=== PATIENT | female | born 1955 | race Caucasian/White ===

== ENCOUNTER → 2017-09-04 14:29 | Outpatient (CLI) | payer MEDICARE, MEDICAID, SELFPAY ==
--- NOTE | 2017-09-04 14:34 | XR_ITS ---
XR DEXA axial skeleton HISTORY: ITS.REASON: POST MENOPAUSAL ORDERING PHYSICIAN: Elvira Carpenter PATIENT AGE: 61 years COMPARISON: None FINDINGS: The BMD measured at the Right femoral neck is 0.683 g/cm squared with a T score of -2.6. This is considered osteoporotic according to the World Health Organization criteria. Fracture risk is high. Treatment should be initiated if not already started. Follow-up exam recommended in one year to assess treatment response. IMPRESSION: Osteoporosis with high fracture risk
== END ==
PROVIDERS: Family Provider Internal Medicine Adolescent Medicine; PCP Internal Medicine Adolescent Medicine; Visit Provider Nurse Practitioner Family
DX: Z78.0 Asymptomatic menopausal state (principal)
CPT/HCPCS: 77080

== ENCOUNTER → 2017-11-11 15:09 | Outpatient (POV) | payer MEDICARE, MEDICAID, SELFPAY ==
[2017-11-11 15:23] VITALS: BP 139/86; PULSE 62; RESP 24; TEMP 37.2; O2SAT 97
--- NOTE | 2017-11-11 15:58 | HMH.PAINSOAP ---
[facility] Pain Management SOAP Note Subjective:: Patient is a pleasant 62-year-old white female who presents today for a follow-up after a lumbar epidural steroid injection she had back in July. Patient states she did have relief with this injection lasting several weeks. Patient states she was much more functional after the interim. Patient's all currently being medically me on tramadol milligrams 1 p.o. 3 times daily and gabapentin 300 mg 1 p.o. 3 times daily. Patient states the medication helps her 60-70%. Patient states that she would like something to last a little bit longer. Patient's LAVONNE #[id number] reviewed and appropriate. We will increase her tramadol 50 mg to 4 times daily and keep her gabapentin at 300 mg 1 tab p.o. 3 times daily. Patient denies any side effect. Patient rates her pain a 6 out of 10 today. She describes it as achy and dull and constant. ROS General: no recent weight change, no fever, no sleep disturbances Respiratory: no cough, no shortness of air, no recurring pulmonary infections Cardiovascular/Peripheral Vascular: No chest pain, No palpitations, no edema, no shortness of breath. Gastrointestinal: no incontinence, normal bowel movements reported Genitourinary: no incontinence Musculoskeletal: Back pain, bilateral leg pain at times Psychiatric: normal mood/ affect, [denies depression], [denies anxiety] Neurological: Weakness in bilateral lower extremities, [denies balance issues] Objective:: Physical Exam General: Alert and oriented x3, no acute distress, pleasant and cooperative, [on room air] Lungs: Resps E/U, Symmetrical chest expansion, Eyes: PERRL Musculoskeletal: Flexion and extension of lumbar spine somewhat guarded secondary to pain, deep tendon reflexes normal, strength in upper and lower extremities [5/5], [abnormal gait noted], positive straight leg test bilaterally at 30? 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 Patient has done well with these in the past given its efficacy we will order a new one. Patient's tried and failed anti-inflammatories, medications, physical therapy. We will also refill her medication tramadol 50 mg 1 p.o. 4 times daily and gabapentin 300 mg [address] Chaney has reviewed this chart and agrees with this plan of care. Patient's LAVONNE #[id number] reviewed and appropriate. Follow-up with this patient after her injection. This note was dictated using voice recognition software and may contain errors or omissions
--- NOTE | 2017-11-11 16:02 | P.CONS_ITS ---
[facility] Pain Management SOAP Note Subjective:: Patient is a pleasant 62-year-old white female who presents today for a follow- up after a lumbar epidural steroid injection she had back in July. Patient states she did have relief with this injection lasting several weeks. Patient states she was much more functional after the interim. Patient's all currently being medically me on tramadol milligrams 1 p.o. 3 times daily and gabapentin 300 mg 1 p.o. 3 times daily. Patient states the medication helps her 60-70%. Patient states that she would like something to last a little bit longer. Patient's LAVONNE #[id number] reviewed and appropriate. We will increase her tramadol 50 mg to 4 times daily and keep her gabapentin at 300 mg 1 tab p.o. 3 times daily. Patient denies any side effect. Patient rates her pain a 6 out of 10 today. She describes it as achy and dull and constant. ROS General: no recent weight change, no fever, no sleep disturbances Respiratory: no cough, no shortness of air, no recurring pulmonary infections Cardiovascular/Peripheral Vascular: No chest pain, No palpitations, no edema, no shortness of breath. Gastrointestinal: no incontinence, normal bowel movements reported Genitourinary: no incontinence Musculoskeletal: Back pain, bilateral leg pain at times Psychiatric: normal mood/ affect, [denies depression], [denies anxiety] Neurological: Weakness in bilateral lower extremities, [denies balance issues] Objective:: Physical Exam General: Alert and oriented x3, no acute distress, pleasant and cooperative, [ on room air] Lungs: Resps E/U, Symmetrical chest expansion, Eyes: PERRL Musculoskeletal: Flexion and extension of lumbar spine somewhat guarded secondary to pain, deep tendon reflexes normal, strength in upper and lower extremities [5/5], [abnormal gait noted], positive straight leg test bilaterally at 30? 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 Patient has done well with these in the past given its efficacy we will order a new one. Patient's tried and failed anti-inflammatories, medications, physical therapy. We will also refill her medication tramadol 50 mg 1 p.o. 4 times daily and gabapentin 300 mg [address] Chaney has reviewed this chart and agrees with this plan of care. Patient's LAVONNE #[id number] reviewed and appropriate. Follow-up with this patient after her injection. This note was dictated using voice recognition software and may contain errors or omissions
--- NOTE | 2017-11-12 15:06 | PC.PHONENOTE ---
called in Rx for Tramadol 50mg TID with 2 refills and Gabapentin 300mg TID with 2 refills to pt's pharmacy
== END ==
PROVIDERS: Family Provider Internal Medicine Adolescent Medicine; PCP Internal Medicine Adolescent Medicine; Visit Provider Clinical Nurse Specialist Family Health
DX: M54.16 Radiculopathy, lumbar region (principal)
CPT/HCPCS: 99212

== ENCOUNTER 2017-11-22 13:33 | Day surgery (SDC) | payer MEDICARE, MEDICAID, SELFPAY ==
--- NOTE | 2017-11-22 13:43 | HMH.PMPROC ---
- Procedure Date: 11/22/17 Time: 13:44 Anesthesiologist:: Louis Chaney MD Complications:: None Pre-procedure Diagnosis:: Degenerative disc disease of lumbar spine with lumbar radiculopathy symptoms Post-procedure Diagnosis:: Same Indications for Procedure:: This patient is a pleasant 62-year-old white female who we are treating for low back pain with lumbar radicular symptoms. She was much more functional and had decreased pain after her last epidural steroid injection back in July. She was 70-80% better. Her pain is starting to return. She presents for repeat lumbar epidural steroid injection today. Procedure Details:: Lumbar epidural steroid injection under fluoroscopy Informed consent was obtained and the risk and benefits of the procedure was explained to the patient. The patient was taken to the procedure room. The patient was placed prone on the procedure table. The patient was prepped and draped in sterile fashion. C-arm fluoroscopy was used to view the lumbar spine. Skin and subcutaneous tissues were anesthetized using lidocaine. I placed an 18-gauge epidural needle and advanced into the L4-L5 interspace using fluoroscopic guidance and [id number] to air. After confirmation of needle placement in the epidural space with dye I injected 2 mL of lidocaine 1.5% with Depo-Medrol 80 mg. Patient tolerated the procedure well with no complications. Plan and Disposition:: We will follow-up with her in 2 weeks. We will reevaluate her symptoms at that time. We will plan on scheduling a repeat epidural at that time.
[2017-11-22 13:45] VITALS: BP 150/89; PULSE 104; RESP 24; TEMP 36.8; O2SAT 90; BMI 28.3
--- NOTE | 2017-11-22 13:49 | P.PCN_ITS ---
- Procedure Date: 11/22/17 Time: 13:44 Anesthesiologist:: Louis Chaney MD Complications:: None Pre-procedure Diagnosis:: Degenerative disc disease of lumbar spine with lumbar radiculopathy symptoms Post-procedure Diagnosis:: Same Indications for Procedure:: This patient is a pleasant 62-year-old white female who we are treating for low back pain with lumbar radicular symptoms. She was much more functional and had decreased pain after her last epidural steroid injection back in July. She was 70-80% better. Her pain is starting to return. She presents for repeat lumbar epidural steroid injection today. Procedure Details:: Lumbar epidural steroid injection under fluoroscopy Informed consent was obtained and the risk and benefits of the procedure was explained to the patient. The patient was taken to the procedure room. The patient was placed prone on the procedure table. The patient was prepped and draped in sterile fashion. C-arm fluoroscopy was used to view the lumbar spine. Skin and subcutaneous tissues were anesthetized using lidocaine. I placed an 18-gauge epidural needle and advanced into the L4-L5 interspace using fluoroscopic guidance and [id number] to air. After confirmation of needle placement in the epidural space with dye I injected 2 mL of lidocaine 1.5 % with Depo-Medrol 80 mg. Patient tolerated the procedure well with no complications. Plan and Disposition:: We will follow-up with her in 2 weeks. We will reevaluate her symptoms at that time. We will plan on scheduling a repeat epidural at that time.
[2017-11-22 13:52] VITALS: BP 175/99; BP 178/102; PULSE 110; PULSE 112; RESP 20
[2017-11-22 14:02] VITALS: BP 144/93; PULSE 107; RESP 18; O2SAT 91
== END 2017-11-22 13:58 | disposition home or self-care (01) ==
LOC: SC.PAINP 13:35
PROVIDERS: Family Provider Internal Medicine Adolescent Medicine; PCP Internal Medicine Adolescent Medicine; Visit Provider Anesthesiology
DX: M51.16 Intervertebral disc disorders with radiculopathy, lumbar region (principal)
CPT/HCPCS: 62323; J1040

== ENCOUNTER → 2017-12-16 13:48 | Outpatient (POV) | payer MEDICARE, MEDICAID, SELFPAY ==
[2017-12-16 14:02] VITALS: BP 120/81; PULSE 108; RESP 18; TEMP 36.7; O2SAT 99; BMI 18.5
--- NOTE | 2017-12-16 14:09 | HMH.PAINSOAP ---
[facility] Pain Management SOAP Note Subjective:: This patient is a pleasant 62-year-old white female who we are treating for low back pain with lumbar radicular symptoms. She was doing well for a period of time after last lumbar epidural steroid injection. Now she has some increasing pain in addition to some radicular symptoms including twitching down her legs. She is currently on gabapentin 300 mg 3 times a day. I have recommended that we increase this to 300 mg 5 times a day. She is also on tramadol 50 mg 4 times a day. She is to remain on this medicine. Most of her pain is in her back and down her legs. Objective:: Alert and oriented ?3 no acute distress. Patient is seen in a wheelchair. She needs assistance while walking. Motor strength of the lower extremities is 4 out of 5. There is no gross sensory deficit. Assessment:: Degenerative disc disease of lumbar spine with lumbar radiculopathy symptoms. Plan:: We will plan on increasing her gabapentin to 300 mg 5 times a day. Will hold off on a repeat lumbar epidural steroid injection at this time. Will follow up with her in 1 month. We will reevaluate her symptoms at that time. She is also continue her tramadol 50 mg 4 times a day.
== END ==
PROVIDERS: Family Provider Internal Medicine Adolescent Medicine; PCP Internal Medicine Adolescent Medicine; Visit Provider Anesthesiology
DX: M54.16 Radiculopathy, lumbar region (principal)
CPT/HCPCS: 99212

== ENCOUNTER 2017-12-30 15:23 | Inpatient (IN) ==
[2017-12-30 16:51] LABS: Basophils # 0.1 K/mm3 (0-0.2); Basophils % 0.4 % (0.1-2.0); Eosinophils # 0.1 K/mm3 (0.0-0.4); Eosinophils % 0.8 % (0.1-12.0); Hematocrit 40.7 % (37.0-47.0); Hemoglobin 13.2 g/dL (12.2-16.2); Lymphocytes % 11.6 K/mm3 (10-50); Mean Corpuscular HGB Conc 32.5 g/dL (31.8-35.4); Mean Corpuscular Hemoglobin 29.2 pg (27.0-31.2); Mean Corpuscular Volume 89.7 fl (81-99); Mean Platelet Volume 8.5 fl (7.4-10.4); Monocytes # 1.2 K/mm3 (0.1-1.0); Monocytes % 7.1 % (1.7-9.3); Neutrophils # 13.7 K/mm3 (1.8-7.8); Neutrophils % 80.1 % (37.0-80.0); Platelet Count 335 K/mm3 (142-424); Red Blood Count 4.53 M/mm3 (4.20-5.40); Red Cell Distribution Width 14.2 % (11.5-17.5); White Blood Count 17.1 K/mm3 (4.8-10.8)
[2017-12-30 17:24] LABS: Anion Gap 12.9 mEq/L (5-15); Potassium 3.9 mmoL/L (3.5-5.1)
--- NOTE | 2017-12-30 17:49 | History & Physical Report ---
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 In the office she had a fever, tachycardic and crackles in the right lower lung field. Admitted to hospital for antibiotics and Pseudomonas coverage given her end- stage disease and multiple antibiotic therapies. [facility] History Medical History: Reports:: Hyperlipidemia, Hypertension Denies:: Cancer, Diabetes Mellitus Type 1, Diabetes Mellitus Type 2, MRSA Other Medical History: Reports: Arthritis, Hypothyroidism Amputation: No - *Social History Educational Level: Completed High School Smoking Status: Former smoker Alcohol Intake: never Occupational Status: retired Housing: house Household Members: family - Psychiatric History Expresses thoughts of harming self/others: None Suicide Plan Description: No Plan Review of Systems - Review of Systems Review of systems:: pertinent systems reviewed and negative unless documented below Meds Home Medications Medication Instructions Recorded Confirmed Type Fluticasone/Salmeterol [Advair 1 inhalation IH BID 11/22/17 12/28/17 History 100/50mcg diskus] Gabapentin [Gabapentin 300mg Cap] 300 mg PO DIRECTED 11/22/17 12/28/17 History Montelukast Sodium [Singulair 10mg 10 mg PO PM 11/22/17 12/28/17 History tablet] Pantoprazole Sodium [Protonix 40mg 40 mg PO DAILY 11/22/17 12/28/17 History tablet] Sertraline HCl [Zoloft] 50 mg PO DAILY 11/22/17 12/28/17 History Tizanidine HCl [Zanaflex] 4 mg PO DIRECTED 11/22/17 12/28/17 History Tramadol HCl [Ultram Take Home 50 mg PO DIRECTED 11/22/17 12/28/17 History Pack 50mg (10)] Allergies Allergy/AdvReac Type Severity Reaction Status Date / Time morphine Allergy Severe CHEST PAIN Verified 12/28/17 18:28 iodine Allergy Unknown I-HIVES Verified 12/28/17 18:28 Penicillins Allergy Unknown I-HIVES Verified 12/28/17 18:28 Exam Vital signs and Labs for Last 24 Hours: Temp Pulse Resp BP Pulse Ox 98.4 F 109 H 22 116/71 96 12/30/17 15:56 12/30/17 17:13 12/30/17 15:56 12/30/17 15:56 12/30/17 17:13 Laboratory Results - last 24 hr 12/30/17 16:21: WBC 17.1 H, RBC 4.53, Hgb 13.2, Hct 40.7, MCV 89.7, MCH 29.2, MCHC 32.5, RDW 14.2, Plt Count 335, MPV 8.5, Neut % (Auto) 80.1 H, Lymph % (Auto ) 11.6, Greenlee % (Auto) 7.1, Eos % (Auto) 0.8, Baso % (Auto) 0.4, Neut # (Auto) 13.7 H, Lymph # (Auto) 2.0, Greenlee # (Auto) 1.2 H, Eos # (Auto) 0.1, Baso # (Auto ) 0.1 I & O for Last 24 hours: Intake & Output 12/28/17 12/29/17 12/30/17 12/31/17 11:59 11:59 11:59 11:59 Weight 149 lb 4 oz Narrative: Patient and her power mobility device. Withered and deformed feet as previously noted. Diminished pulses in the feet but the wrists are normal. Crackles and rhonchi in the right lower and middle lung field. Left side has better air entry. Heart rate regular. Abdomen soft and nontender. Oropharynx clear. Cranial nerves are intact. H&P: Result - Labs Labs: Short CBC 12/30/17 Range/Units 16:21 WBC 17.1 H (4.8-10.8) K/mm3 Hgb 13.2 (12.2-16.2) g/dL Hct 40.7 (37.0-47.0) % Plt Count 335 (142-424) K/mm3 Assessment and Plan (1) Community acquired pneumonia Current visit: Yes Status: Acute Category: Medical Code(s): J18.9 - Pneumonia, unspecified organism (2) Acute exacerbation of chronic obstructive pulmonary disease (COPD) Current visit: No Status: Acute Category: Medical Code(s): J44.1 - Chronic obstructive pulmonary disease with (acute) exacerbation - Assessment and plan all Dx Assessment and Plan for all problems:: Admit to hospital. Broad-spectrum IV antibiotics. Sputum cultures, port of care. Close follow-up.
[2017-12-30 19:20] LABS: Eosinophils % 1 % (0-3); Lymphocytes % 10 % (10-50); Monocytes % 5 % (2-9); Neutrophils % 84 % (42-76); RBC Morphology Normal; Total Cells Counted 100
[2017-12-31 06:58] LABS: Basophils # 0.1 K/mm3 (0-0.2); Basophils % 0.4 % (0.1-2.0); Eosinophils # 0.2 K/mm3 (0.0-0.4); Eosinophils % 1.6 % (0.1-12.0); Hematocrit 39.5 % (37.0-47.0); Hemoglobin 12.5 g/dL (12.2-16.2); Lymphocytes # 2.2 K/mm3 (0.7-4.5); Lymphocytes % 18.1 K/mm3 (10-50); Mean Corpuscular HGB Conc 31.7 g/dL (31.8-35.4); Mean Corpuscular Hemoglobin 28.8 pg (27.0-31.2); Mean Corpuscular Volume 90.9 fl (81-99); Mean Platelet Volume 7.2 fl (7.4-10.4); Monocytes # 0.9 K/mm3 (0.1-1.0); Monocytes % 7.4 % (1.7-9.3); Neutrophils % 72.6 % (37.0-80.0); Platelet Count 380 K/mm3 (142-424); Red Blood Count 4.34 M/mm3 (4.20-5.40); Red Cell Distribution Width 14.4 % (11.5-17.5); White Blood Count 12.4 K/mm3 (4.8-10.8)
[2017-12-31 07:25] LABS: Anion Gap 9.9 mEq/L (5-15); Potassium 3.9 mmoL/L (3.5-5.1)
--- NOTE | 2017-12-31 07:41 | Pharmacy Consult Notes ---
[facility] Pharmacy VTE Monitoring - Patient Demographics Admission date: 12/30/17 Report Date: 12/31/17 Time: 07:40 Allergies/Adverse Reactions: Patient Allergies morphine Allergy (Severe, Verified 12/28/17 18:28) CHEST PAIN iodine Allergy (Unknown, Verified 12/28/17 18:28) I-HIVES Penicillins Allergy (Unknown, Verified 12/28/17 18:28) I-HIVES Height: 1.63 m Weight: 67.699 kg Patient Problems: Current Active Problems Community acquired pneumonia (Acute) - VTE Risk Labs: VTE Related Lab Results Hgb 12.5 g/dL (12.2-16.2) 12/31/17 06:13 Hct 39.5 % (37.0-47.0) 12/31/17 06:13 Plt Count 380 K/mm3 (142-424) 12/31/17 06:13 BUN 14 mg/dL (7-18) 12/31/17 06:13 Creatinine 0.62 mg/dL (0.55-1.02) 12/31/17 06:13 Estimated Creat Clear 103 mL/min (0-300) 12/31/17 06:13 VTE Score: 3 VTE Risk Level: Low Risk - Prophylaxis VTE Prophylaxis Ordered?: Yes Types of VTE Prophylaxis: TEDS Knee High Location of Applied Device: Bilateral Lower Extremeties - VTE Diagnosis Confirmed Treatment or plan recommended: Continue Current Treatment
--- NOTE | 2017-12-31 08:11 | Progress Note ---
Internal Medicine - PN: Subj *Date: 12/31/17 *Time: 07:45 Interval history: Patient continues to have shortness of breath at rest. She has had minimal sputum production, but was able to produce a specimen for culture. Alert and oriented x3. Rate and rhythm regular. Lung sounds with musical wheezes throughout and rhonchi DEONDRE. Abdomen soft with mild diffuse tenderness Exam Vital signs and Labs for Last 24 Hours: Temp Pulse Resp BP Pulse Ox 98.7 F 84 20 112/63 97 12/31/17 07:16 12/31/17 07:16 12/31/17 07:16 12/31/17 07:16 12/31/17 07:16 Laboratory Results - last 24 hr 12/30/17 16:21: WBC 17.1 H, RBC 4.53, Hgb 13.2, Hct 40.7, MCV 89.7, MCH 29.2, MCHC 32.5, RDW 14.2, Plt Count 335, MPV 8.5, Neut % (Auto) 80.1 H, Lymph % (Auto ) 11.6, Otoe % (Auto) 7.1, Eos % (Auto) 0.8, Baso % (Auto) 0.4, Neut # (Auto) 13.7 H, Lymph # (Auto) 2.0, Otoe # (Auto) 1.2 H, Eos # (Auto) 0.1, Baso # (Auto ) 0.1, Total Counted 100, Neutrophils % (Manual) 84 H, Lymphocytes % (Manual) 10 , Monocytes % (Manual) 5, Eosinophils % (Manual) 1, Platelet Estimate Normal, RBC Morphology Normal 12/30/17 16:21: Sodium 134 L, Potassium 3.9, Chloride 97 L, Carbon Dioxide 28, Anion Gap 12.9, BUN 18 D, Creatinine 0.77, Estimated Creat Clear 83, Estimated GFR 76, Est GFR ( Amer) 93, Glucose 91 12/30/17 16:21: Mycoplasma pneumon IgM Non-reactive 12/31/17 06:13: WBC 12.4 H D, RBC 4.34, Hgb 12.5, Hct 39.5, MCV 90.9, MCH 28.8, MCHC 31.7 L, RDW 14.4, Plt Count 380, MPV 7.2 L, Neut % (Auto) 72.6, Lymph % ( Auto) 18.1, Otoe % (Auto) 7.4, Eos % (Auto) 1.6, Baso % (Auto) 0.4, Neut # (Auto ) 9.0 H, Lymph # (Auto) 2.2, Otoe # (Auto) 0.9, Eos # (Auto) 0.2, Baso # (Auto) 0.1 12/31/17 06:13: Sodium 138, Potassium 3.9, Chloride 102, Carbon Dioxide 30, Anion Gap 9.9, BUN 14, Creatinine 0.62, Estimated Creat Clear 103, Estimated GFR 98, Est GFR ( Amer) 119 D, Glucose 87 I & O for Last 24 hours: Intake & Output 12/28/17 12/29/17 12/30/17 12/31/17 11:59 11:59 11:59 11:59 Intake Total 760 / 760 Balance 760 / 760 Weight 149 lb 4 oz Microbiology Reports for the Last 24 Hours: Microbiology 12/30/17 19:15 Sputum - Expectorated Sputum Gram Stain - Final Assessment and Plan (1) Community acquired pneumonia Current visit: Yes Status: Acute Category: Medical Code(s): J18.9 - Pneumonia, unspecified organism (2) Acute exacerbation of chronic obstructive pulmonary disease (COPD) Current visit: No Status: Acute Category: Medical Code(s): J44.1 - Chronic obstructive pulmonary disease with (acute) exacerbation - Assessment and plan all Dx Assessment and Plan for all problems:: Continue broad spectrum antibiotics and duonebs. Leukocytosis is improving. Sputum culture is pending.
--- NOTE | 2018-01-01 08:04 | Progress Note ---
Internal Medicine - PN: Subj *Date: 01/01/18 *Time: 08:03 Interval history: Patient is a complaint of rattling in her chest but otherwise has been comfortable. Exam Vital signs and Labs for Last 24 Hours: Temp Pulse Resp BP Pulse Ox 99.7 F H 113 H 20 129/76 93 L 01/01/18 07:15 01/01/18 07:15 01/01/18 07:15 01/01/18 07:15 01/01/18 07:15 I & O for Last 24 hours: Intake & Output 12/29/17 12/30/17 12/31/17 01/01/18 11:59 11:59 11:59 11:59 Intake Total 910 / 910 2058 / 2058 Output Total 1300 / 1300 Balance 910 / 910 758 / 758 Weight 149 lb 4 oz Microbiology Reports for the Last 24 Hours: Microbiology 12/30/17 19:15 Sputum - Expectorated Sputum Gram Stain - Final 12/30/17 19:15 Sputum - Expectorated Sputum Sputum Culture - Final Pseudomonas aeruginosa 12/30/17 17:00 Blood Blood Culture - Preliminary NO GROWTH AFTER 24 HOURS 12/30/17 16:21 Blood Blood Culture - Preliminary NO GROWTH AFTER 24 HOURS Narrative: Patient is pleasant, alert, oriented 3. Does have rhonchi in both lower lung montiel. Occasional crackles in the left lower side. Heart rate regular. Assessment and Plan (1) Community acquired pneumonia Current visit: Yes Status: Acute Category: Medical Code(s): J18.9 - Pneumonia, unspecified organism (2) Acute exacerbation of chronic obstructive pulmonary disease (COPD) Current visit: No Status: Acute Category: Medical Code(s): J44.1 - Chronic obstructive pulmonary disease with (acute) exacerbation (3) Pseudomonas pneumonia Current visit: Yes Status: Acute Category: Medical Code(s): J15.1 - Pneumonia due to Pseudomonas Patient is on appropriate antibiotics. Blood cultures are negative so far. Continue current plan. Mucomyst for sputum clearance help.
--- NOTE | 2018-01-02 07:46 | Progress Note ---
Internal Medicine - PN: Subj *Date: 01/02/18 *Time: 07:45 Exam Vital signs and Labs for Last 24 Hours: Temp Pulse Resp BP Pulse Ox 98.4 F 88 18 121/76 95 01/02/18 04:00 01/02/18 06:29 01/02/18 04:00 01/02/18 04:00 01/02/18 06:29 I & O for Last 24 hours: Intake & Output 12/30/17 12/31/17 01/01/18 01/02/18 23:59 23:59 23:59 23:59 Intake Total 150 / 150 2848 / 2848 2292 / 2292 1283 / 1283 Output Total 500 / 500 1600 / 1600 600 / 600 Balance 150 / 150 2348 / 2348 692 / 692 683 / 683 Weight 67.699 kg 67.699 kg Microbiology Reports for the Last 24 Hours: Microbiology 12/30/17 17:00 Blood Blood Culture - Preliminary NO GROWTH AFTER 48 HOURS 12/30/17 16:21 Blood Blood Culture - Preliminary NO GROWTH AFTER 48 HOURS 12/30/17 19:15 Sputum - Expectorated Sputum Gram Stain - Final 12/30/17 19:15 Sputum - Expectorated Sputum Sputum Culture - Final Pseudomonas aeruginosa Assessment and Plan (1) Community acquired pneumonia Current visit: Yes Status: Acute Category: Medical Code(s): J18.9 - Pneumonia, unspecified organism (2) Acute exacerbation of chronic obstructive pulmonary disease (COPD) Current visit: No Status: Acute Category: Medical Code(s): J44.1 - Chronic obstructive pulmonary disease with (acute) exacerbation (3) Pseudomonas pneumonia Current visit: Yes Status: Acute Category: Medical Code(s): J15.1 - Pneumonia due to Pseudomonas The patient's infection will respond to the chosen ABx?: Yes Is the patient receiving the right drug, dose, and route?: Yes Could a more targeted ABx be ordered?: No
--- NOTE | 2018-01-02 08:09 | Swing Bed Reports ---
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 In the office she had a fever, tachycardic and crackles in the right lower lung field. Admitted to hospital for antibiotics and Pseudomonas coverage given her end- stage disease and multiple antibiotic therapies. Hospital Course Hospital Course: Ms. De Leon was admitted to acute care for failure of outpatient treatment of COPD exacerbation/pneumonia. CXR was obtained which showed DEONDRE pneumonia. She was given broad spectrum antibiotics and duonebs. Mucomyst nebs were added which has enabled her to expectorate more sputum. A sputum culture was obtained which was + for pseudomonas that is sensitive to the cefepime and levaquin she is on. Shortness of breath is slowly improving. A PICC line will be placed for continued IV therapy and he will transfer to swing bed today for 8 more days of IV Levaquin and Cefepime as dual antibiotic coverage is indicated. Exam Vital signs and Labs for Last 24 Hours: Temp Pulse Resp BP Pulse Ox 98.4 F 88 18 121/76 95 01/02/18 04:00 01/02/18 06:29 01/02/18 04:00 01/02/18 04:00 01/02/18 06:29 I & O for Last 24 hours: Intake & Output 12/30/17 12/31/17 01/01/18 01/02/18 11:59 11:59 11:59 11:59 Intake Total 910 / 910 2208 / 2208 3455 / 3455 Output Total 1300 / 1300 1400 / 1400 Balance 910 / 910 908 / 908 5 / 2055 Weight 149 lb 4 oz Microbiology Reports for the Last 24 Hours: Microbiology 12/30/17 17:00 Blood Blood Culture - Preliminary NO GROWTH AFTER 48 HOURS 12/30/17 16:21 Blood Blood Culture - Preliminary NO GROWTH AFTER 48 HOURS 12/30/17 19:15 Sputum - Expectorated Sputum Gram Stain - Final 12/30/17 19:15 Sputum - Expectorated Sputum Sputum Culture - Final Pseudomonas aeruginosa Narrative: Alert and oriented x3. Rate and rhythm regular. Lung sounds with scattered wheezes, crackle DEONDRE, improved air movement. Abdomen soft with mild diffuse tenderness. Results Labs on day of discharge: Preliminary micro results at discharge 12/30/17 17:00 Blood Culture - Preliminary Blood NO GROWTH AFTER 48 HOURS 12/30/17 16:21 Blood Culture - Preliminary Blood NO GROWTH AFTER 48 HOURS DS: Diagnosis - Discharge Diagnosis (1) Community acquired pneumonia Status: Acute (2) Acute exacerbation of chronic obstructive pulmonary disease (COPD) Status: Acute (3) Pseudomonas pneumonia Status: Acute Discharge Medications Discharge Medications: Home Medications Medication Instructions Recorded Confirmed Type Fluticasone/Salmeterol [Advair 1 puff IH BID 11/22/17 12/31/17 History 100/50mcg diskus] Gabapentin [Gabapentin 300mg Cap] 300 mg PO 5XDAY 11/22/17 12/31/17 History Montelukast Sodium [Singulair 10mg 10 mg PO HS 11/22/17 12/31/17 History tablet] Pantoprazole Sodium [Protonix 40mg 40 mg PO DAILY 11/22/17 12/30/17 History tablet] Tizanidine HCl [Zanaflex] 4 mg PO TID 11/22/17 12/31/17 History Tramadol HCl [Ultram Take Home 50 mg PO QID 11/22/17 12/31/17 History Pack 50mg (10)] Alendronate Sodium 70 mg PO WEEKLY 12/30/17 12/30/17 History Fluticasone Furoate [Flonase 2 spray NS DAILY 12/30/17 12/31/17 History Sensimist] Linaclotide [Linzess] 145 mcg PO DAILY 12/30/17 12/30/17 History raNITIdine HCl [Ranitidine HCl] 150 mg PO BID 12/30/17 12/30/17 History Albuterol Sulfate [Albuterol HFA 2 puffs IH Q4HP PRN 12/31/17 12/31/17 History Inhaler] SUMAtriptan succinate [Sumatriptan 100 mg PO NEEDED PRN 12/31/17 12/31/17 History Succinate] Sertraline HCl [Zoloft 100mg 200 mg PO DAILY 12/31/17 12/31/17 History tablet] Trazodone HCl 50 mg PO DAILYP PRN 12/31/17 12/31/17 History Disposition Disposition: [facility] Bed
--- NOTE | 2018-01-02 08:13 | Swing Bed Reports ---
Discharge/Transfer - Discharge Disposition: [facility] Condition: Fair - Plan of Care Resident has been informed of condition and prognosis?: Yes Mobility Status: wheelchair Goal of treatment:: Improve shortness of breath and exercise tolerance Rehab Potential: Fair I concur with the most recent H & P: Yes Date of most recent H & P: 12/30/17 If no, indicate changes: None Certification: I have reviewed and agree with this resident's plan of care. I certify that post -hospital long-term facility services are required to be given on an inpatient basis because of the need for long-term care on a continuing basis for the condition(s) for which he/she is receiving inpatient hospital services prior to admission to swing bed. I also certify that the resident meets existing SNF level of care definition.
[2018-01-02 15:55] VITALS: BP 84/40
== END 2018-01-02 13:36 | disposition swing bed (61) ==
LOC: 2ND 15:23
PROVIDERS: ADMIT Internal Medicine Adolescent Medicine; ATTEND Internal Medicine Adolescent Medicine

== ENCOUNTER 2018-01-02 13:37 | Inpatient (IN) ==
--- NOTE | 2018-01-02 14:27 | Pharmacy Consult Notes ---
[facility] Pharmacy VTE Monitoring - Patient Demographics Admission date: 01/02/18 Report Date: 01/02/18 Time: 14:27 Allergies/Adverse Reactions: Patient Allergies morphine Allergy (Severe, Verified 12/28/17 18:28) CHEST PAIN iodine Allergy (Unknown, Verified 12/28/17 18:28) I-HIVES Penicillins Allergy (Unknown, Verified 12/28/17 18:28) I-HIVES Height: 1.63 m Weight: 67.699 kg - VTE Risk Was VTE Risk Assessment Performed: Yes VTE Score: 5 VTE Risk Level: Low Risk - Prophylaxis VTE Prophylaxis Ordered?: Yes Types of VTE Prophylaxis: TEDS Knee High Location of Applied Device: Bilateral Lower Extremeties - VTE Diagnosis Confirmed Treatment or plan recommended: Continue Current Treatment
--- NOTE | 2018-01-04 08:42 | Progress Note ---
Internal Medicine - PN: Subj *Date: 01/04/18 *Time: 08:41 Interval history: Overall patient feels somewhat better. Tolerating antibiotics well. Exam Vital signs and Labs for Last 24 Hours: Temp Pulse Resp BP Pulse Ox 98.1 F 93 H 20 131/70 95 01/04/18 08:00 01/04/18 08:25 01/04/18 08:00 01/04/18 08:00 01/04/18 08:25 I & O for Last 24 hours: Intake & Output 01/01/18 01/02/18 01/03/18 01/04/18 11:59 11:59 11:59 11:59 Intake Total 1007 / 1007 470 / 470 Output Total 2200 / 2200 1000 / 1000 Balance -1193 / -1193 -530 / -530 Weight 149 lb 4.012 oz 149 lb 4.012 oz Narrative: Patient is alert, oriented 3. Ate 100% of her breakfast. Heart rate regular without murmurs. Lungs continue to have rhonchi. However, slightly better air entry. No respiratory distress. Previously noted foot deformities unchanged. Assessment and Plan (1) Acute exacerbation of chronic obstructive pulmonary disease (COPD) Current visit: No Status: Acute Category: Medical Code(s): J44.1 - Chronic obstructive pulmonary disease with (acute) exacerbation (2) Community acquired pneumonia Current visit: No Status: Acute Category: Medical Code(s): J18.9 - Pneumonia, unspecified organism (3) Pseudomonas pneumonia Current visit: No Status: Acute Category: Medical Code(s): J15.1 - Pneumonia due to Pseudomonas - Assessment and plan all Dx Assessment and Plan for all problems:: Sputum clearance has improved her situation. Continue antipseudomonal antibiotics and swing bed course for this.
--- NOTE | 2018-01-05 11:40 | Progress Note ---
Internal Medicine - PN: Subj *Date: 01/05/18 *Time: 11:39 Exam Vital signs and Labs for Last 24 Hours: Temp Pulse Resp BP Pulse Ox 98.7 F 91 H 20 142/84 98 01/05/18 07:23 01/05/18 07:23 01/05/18 07:23 01/05/18 07:23 01/05/18 07:32 I & O for Last 24 hours: Intake & Output 01/02/18 01/03/18 01/04/18 01/05/18 23:59 23:59 23:59 23:59 Intake Total 390 / 390 1237 / 1237 1680 / 1680 480 / 480 Output Total 2600 / 2600 3500 / 3500 1300 / 1300 Balance 390 / 390 -1363 / -1363 -1820 / -1820 -820 / -820 Weight 67.699 kg 67.699 kg Assessment and Plan (1) Acute exacerbation of chronic obstructive pulmonary disease (COPD) Current visit: No Status: Acute Category: Medical Code(s): J44.1 - Chronic obstructive pulmonary disease with (acute) exacerbation (2) Community acquired pneumonia Current visit: No Status: Acute Category: Medical Code(s): J18.9 - Pneumonia, unspecified organism (3) Pseudomonas pneumonia Current visit: No Status: Acute Category: Medical Code(s): J15.1 - Pneumonia due to Pseudomonas The patient's infection will respond to the chosen ABx?: Yes Is the patient receiving the right drug, dose, and route?: Yes Could a more targeted ABx be ordered?: No
--- NOTE | 2018-01-07 08:33 | Progress Note ---
Internal Medicine - PN: Subj *Date: 01/07/18 *Time: 07:30 Interval history: States she feels "much better." Alert and oriented x3. Rate and rhythm regular. Lung sounds with faint wheezing anteriorly. Abdomen soft and nontender. Exam Vital signs and Labs for Last 24 Hours: Temp Pulse Resp BP Pulse Ox 98.6 F 102 H 20 131/81 94 L 01/07/18 07:23 01/07/18 07:23 01/07/18 07:23 01/07/18 07:23 01/07/18 07:23 I & O for Last 24 hours: Intake & Output 01/04/18 01/05/18 01/06/18 01/07/18 11:59 11:59 11:59 11:59 Intake Total 980 / 980 1950 / 1950 1230 / 1230 1440 / 1440 Output Total 1000 / 1000 4200 / 4200 1050 / 1050 2200 / 2200 Balance -20 / -20 -2250 / -2250 180 / 180 -760 / -760 Weight 149 lb 4.012 oz Assessment and Plan (1) Acute exacerbation of chronic obstructive pulmonary disease (COPD) Current visit: No Status: Acute Category: Medical Code(s): J44.1 - Chronic obstructive pulmonary disease with (acute) exacerbation (2) Community acquired pneumonia Current visit: No Status: Acute Category: Medical Code(s): J18.9 - Pneumonia, unspecified organism (3) Pseudomonas pneumonia Current visit: No Status: Acute Category: Medical Code(s): J15.1 - Pneumonia due to Pseudomonas - Assessment and plan all Dx Assessment and Plan for all problems:: She is doing well. Continue IV antibiotics and duonebs. On track for discharge on Saturday.
[2018-01-09 07:15] LABS: Basophils # 0.1 K/mm3 (0-0.2); Basophils % 0.6 % (0.1-2.0); Eosinophils # 0.2 K/mm3 (0.0-0.4); Eosinophils % 1.9 % (0.1-12.0); Hematocrit 37.3 % (37.0-47.0); Hemoglobin 12.1 g/dL (12.2-16.2); Lymphocytes # 2.1 K/mm3 (0.7-4.5); Lymphocytes % 22.1 K/mm3 (10-50); Mean Corpuscular HGB Conc 32.3 g/dL (31.8-35.4); Mean Corpuscular Hemoglobin 28.7 pg (27.0-31.2); Mean Corpuscular Volume 88.7 fl (81-99); Mean Platelet Volume 7.2 fl (7.4-10.4); Monocytes # 0.4 K/mm3 (0.1-1.0); Monocytes % 4.6 % (1.7-9.3); Neutrophils # 6.7 K/mm3 (1.8-7.8); Neutrophils % 70.8 % (37.0-80.0); Platelet Count 517 K/mm3 (142-424); Red Blood Count 4.21 M/mm3 (4.20-5.40); Red Cell Distribution Width 13.8 % (11.5-17.5); White Blood Count 9.4 K/mm3 (4.8-10.8)
[2018-01-09 08:06] LABS: Albumin Level 2.4 gm/dL (3.4-5.0); Albumin/Globulin Ratio 0.5 (1.1-1.8); Anion Gap 10.2 mEq/L (5-15); Bilirubin,Total 0.2 mg/dL (0.2-1.0); Calcium 9.3 mg/dL (8.5-10.1); Globulin 4.6 gm/dl (1.3-3.2); Potassium 4.2 mmoL/L (3.5-5.1)
--- NOTE | 2018-01-10 07:21 | Discharge Summary ---
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 She was treated appropriately with IV antibiotics and was transferred to [facility] for finishing IV therapy. Please see admission notes for details. Hospital Course Hospital Course: She was placed on appropriate antipseudomonal antibiotics. PICC line was placed in the right antecubital fossa. She tolerated this well, she met goals for rehab. She defervesced, she had minimal sputum production and felt much better vis--vis respiratory symptoms and lack of coughing. This morning she was doing great, back to her baseline, and was discharged home. Objective Vital signs: Temp Pulse Resp BP Pulse Ox 97.7 F 87 20 129/71 99 01/09/18 20:00 01/09/18 20:48 01/09/18 20:00 01/09/18 20:00 01/09/18 22:00 Narrative: Patient is alert, oriented. Pleasant. Heart rate regular. No murmurs. Lungs have some scattered rhonchi but at her baseline, no crackles, good air entry bilaterally, distal extremities had changes previously noted from her neuropathic diagnosis. Results Labs on day of discharge: Labs from last 24 hours 01/09/18 06:12 Sodium 139 Potassium 4.2 Chloride 104 Carbon Dioxide 29 Anion Gap 10.2 BUN 21 H Creatinine 0.73 Estimated Creat Clear 89 Estimated GFR 81 Est GFR ( Amer) 98 Glucose 86 Calcium 9.3 Total Bilirubin 0.2 AST 15 ALT 15 Alkaline Phosphatase 77 Total Protein 7.0 Albumin 2.4 L Globulin 4.6 H Albumin/Globulin Ratio 0.5 L DS: Diagnosis - Discharge Diagnosis (1) Acute exacerbation of chronic obstructive pulmonary disease (COPD) Status: Acute (2) Community acquired pneumonia Status: Acute (3) Pseudomonas pneumonia Status: Acute Discharge Plan - Patient Discharge Instructions ACTIVITY: Continue current activity DIET: continue same diet - Follow up Plan Follow up with: Neil Tony MD [Staff Physician] - 1 week Disposition: Home, Self-Long-Term Medications: Home Medications Medication Instructions Recorded Confirmed Type Fluticasone/Salmeterol [Advair 1 puff IH BID 11/22/17 01/02/18 History 100/50mcg diskus] Gabapentin [Gabapentin 300mg Cap] 300 mg PO 5XDAY 11/22/17 01/02/18 History Montelukast Sodium [Singulair 10mg 10 mg PO HS 11/22/17 01/02/18 History tablet] Pantoprazole Sodium [Protonix 40mg 40 mg PO DAILY 11/22/17 01/02/18 History tablet] Tizanidine HCl [Zanaflex] 4 mg PO TID 11/22/17 01/02/18 History Alendronate Sodium 70 mg PO WEEKLY 12/30/17 01/02/18 History Fluticasone Furoate [Flonase 2 spray NS DAILY 12/30/17 01/02/18 History Sensimist] Linaclotide [Linzess] 145 mcg PO DAILY 12/30/17 01/02/18 History raNITIdine HCl [Ranitidine HCl] 150 mg PO BID 12/30/17 01/02/18 History Albuterol Sulfate [Albuterol HFA 2 puffs IH Q4HP PRN 12/31/17 01/02/18 History Inhaler] SUMAtriptan succinate [Sumatriptan 100 mg PO NEEDED PRN 12/31/17 01/02/18 History Succinate] Sertraline HCl [Zoloft 100mg 200 mg PO DAILY 12/31/17 01/02/18 History tablet] Trazodone HCl 50 mg PO DAILYP PRN 12/31/17 01/02/18 History Tramadol HCl [Ultram] 50 mg PO QIDP PRN 01/02/18 01/02/18 History Prescriptions/Medication Reconciliation: New Hydrocortisone [Hydrocortisone 1% Cream 30gm Tube] 0 gm TP TID tube Continue Pantoprazole Sodium [Protonix 40mg tablet] 40 mg PO DAILY Montelukast Sodium [Singulair 10mg tablet] 10 mg PO HS Tizanidine HCl [Zanaflex] 4 mg PO TID Gabapentin [Gabapentin 300mg Cap] 300 mg PO 5XDAY raNITIdine HCl [Ranitidine HCl] 150 mg PO BID Linaclotide [Linzess] 145 mcg PO DAILY Alendronate Sodium 70 mg PO WEEKLY Sertraline HCl [Zoloft 100mg tablet] 200 mg PO DAILY Albuterol Sulfate [Albuterol HFA Inhaler] 2 puffs IH Q4HP PRN PRN Reason: Shortness Of Breath Or Wheezing Trazodone HCl 50 mg PO DAILYP PRN PRN Reason: Sleep Tramadol HCl [Ultram] 50 mg PO QIDP PRN PRN Reason: PAIN Fluticasone/Salmeterol [Advair 100/50mcg diskus] 1 puff IH BID Fluticasone Furoate [Flonase Sensimist] 2 spray NS DAILY SUMAtriptan succinate [Sumatriptan Succinate] 100 mg PO NEEDED PRN PRN Reason: MIGRAINES
[2018-01-10 07:33] VITALS: BP 128/80
== END 2018-01-10 11:01 | disposition home or self-care (01) ==
LOC: 2ND 13:37
PROVIDERS: ADMIT Internal Medicine Adolescent Medicine; ATTEND Internal Medicine Adolescent Medicine
CPT/HCPCS: 36415; 80053; 85025; 94640; 94761; J1956

== ENCOUNTER → 2018-02-03 13:34 | Outpatient (POV) | payer MEDICARE, MEDICAID, SELFPAY ==
[2018-02-03 13:41] VITALS: BP 124/95; PULSE 114; RESP 22; O2SAT 95; BMI 18.8
--- NOTE | 2018-02-03 14:04 | HMH.PAINSOAP ---
[facility] Pain Management SOAP Note Subjective:: Patient is a pleasant 62-year-old white female who presents today for follow-up. Patient is being treated for pain secondary to degenerative disc disease of lumbar spine with lumbar radiculopathy. Patient was increased to gabapentin 300 mg 1 p.o. 5 times a day at her last visit. She states she did have some improvement. Patient also on tramadol 50 mg 1 4 times daily. Patient states she is ready to continue on with an epidural injection. Patient has done well in the past with lumbar epidural steroid injections at the L4-L5 level. Patient would like to repeat this. Patient's tried and failed therapy, medications, anti-inflammatories. Patient recently was discharged from the hospital where she was being treated for pneumonia. Patient states she is no longer taking any antibiotics. She rates her pain an 8 out of 10 today. ROS General: no recent weight change, no fever, no sleep disturbances Respiratory: Chronic cough, O2 dependent Cardiovascular/Peripheral Vascular: No chest pain, No palpitations, no edema, no shortness of breath. Gastrointestinal: no incontinence, normal bowel movements reported Genitourinary: no incontinence Musculoskeletal: Back pain, leg pain Psychiatric: normal mood/ affect Neurological: This in bilateral lower extremities, [denies balance issues] Objective:: Physical Exam General: Alert and oriented x3, no acute distress, pleasant and cooperative, [on room air] Lungs: Resps E/U, Symmetrical chest expansion, Eyes: PERRL Musculoskeletal: Flexion and extension of lumbar spine somewhat guarded secondary to pain, deep tendon reflexes normal, strength in upper and lower extremities [5/5], [abnormal gait noted] Neurological: speech clear, website optimization strategist equal, no gross sensory deficits Assessment:: Degenerative disc disease of the lumbar spine with lumbar radiculopathy symptoms Plan:: Patient will be scheduled for an L4-L5 lumbar epidural steroid injection. Patient has done well with these in the past. Patient's failed other conservative therapies. I will follow-up with this patient after her injection. Patient is to continue her gabapentin and tramadol as prescribed. This note was dictated using voice recognition software and may contain errors or omissions
--- NOTE | 2018-02-03 14:07 | P.CONS_ITS ---
[facility] Pain Management SOAP Note Subjective:: Patient is a pleasant 62-year-old white female who presents today for follow- up. Patient is being treated for pain secondary to degenerative disc disease of lumbar spine with lumbar radiculopathy. Patient was increased to gabapentin 300 mg 1 p.o. 5 times a day at her last visit. She states she did have some improvement. Patient also on tramadol 50 mg 1 4 times daily. Patient states she is ready to continue on with an epidural injection. Patient has done well in the past with lumbar epidural steroid injections at the L4-L5 level. Patient would like to repeat this. Patient's tried and failed therapy, medications, anti-inflammatories. Patient recently was discharged from the hospital where she was being treated for pneumonia. Patient states she is no longer taking any antibiotics. She rates her pain an 8 out of 10 today. ROS General: no recent weight change, no fever, no sleep disturbances Respiratory: Chronic cough, O2 dependent Cardiovascular/Peripheral Vascular: No chest pain, No palpitations, no edema, no shortness of breath. Gastrointestinal: no incontinence, normal bowel movements reported Genitourinary: no incontinence Musculoskeletal: Back pain, leg pain Psychiatric: normal mood/ affect Neurological: This in bilateral lower extremities, [denies balance issues] Objective:: Physical Exam General: Alert and oriented x3, no acute distress, pleasant and cooperative, [ on room air] Lungs: Resps E/U, Symmetrical chest expansion, Eyes: PERRL Musculoskeletal: Flexion and extension of lumbar spine somewhat guarded secondary to pain, deep tendon reflexes normal, strength in upper and lower extremities [5/5], [abnormal gait noted] Neurological: speech clear, business continuity planning director equal, no gross sensory deficits Assessment:: Degenerative disc disease of the lumbar spine with lumbar radiculopathy symptoms Plan:: Patient will be scheduled for an L4-L5 lumbar epidural steroid injection. Patient has done well with these in the past. Patient's failed other conservative therapies. I will follow-up with this patient after her injection. Patient is to continue her gabapentin and tramadol as prescribed. This note was dictated using voice recognition software and may contain errors or omissions
== END ==
PROVIDERS: Family Provider Internal Medicine Adolescent Medicine; PCP Internal Medicine Adolescent Medicine; Visit Provider Clinical Nurse Specialist Family Health
DX: M54.16 Radiculopathy, lumbar region (principal)
CPT/HCPCS: 99212

== ENCOUNTER → 2018-02-26 14:13 | Outpatient (CLI) | payer MEDICARE, MEDICAID, SELFPAY ==
--- NOTE | 2018-02-26 14:18 | MR_ITS ---
MR foot RT wo con Ordering Physician: Neil Tony MD Patient Age: 62 years: Female HISTORY: ITS.REASON: Right foot pain, Xmzwqab-Sjajk-Glmen disease, H/O foot multiple surgery NO Dm . Swelling OF RIGHT FOOT Reports 14 surgeries c/o right foot pain and swelling x 3-4 days. Symptoms past week.. FINDINGS: Patient with Mufmrjd-Omfij-Kbopx disease Which is associated with the There is extensive foot deformity is seen on previous plain films. The patient has a very abrupt angle at the junction of the metatarsals and the mid foot. This appears to be reflect high arch pes cavus, & associated with this prominent tarsal-metatarsal level. There appear to be postsurgical changes in this region. Scattered metallic susceptibility artifact seen at the base of second & third metatarsals, internal SQ fourth along the plantar aspect of foot. There may be some metallic artifact account for increased signal at the head and proximal first metatarsal as well. The the curve deformity appearance of the first metatarsal likely reflecting old surgery or fracture. Somewhat similar deformity at the base of second and third metatarsals.. On plain film there is question question of fusion at at the cuneiforms and tarsal-metatarsal junction., But on MRI suspect this is very reflection steep angle which obliterates the joint The sagittal view shows a downward directed distal talus articulation leading towards tarsal navicular. The subtalar joint with some upper normal the slight increased fluid particularly towards its medial aspect and posterior subtalar joint region. Fluid. Abnormal talus configuration at ankle joint. The tibia articulates noted to articulate with the more posterior and medial aspect of the dome of the talus. Slight flattening, dome of talus noted Deformities of toes included valgus orientation of toes along with Flexion hammer toe deformities of toes. . The tendons about the medial and lateral foot grossly intact Today's studies are somewhat limited due to the deformity and & evident metallic susceptibility artifact from postsurgical changes but I see no good evidence of acute fracture or osteomyelitis if there is a specific area of concern please review us and radiology. Stroke and specifically address sections complex foot. IMPRESSION......... Marked deformity of the foot particular evident in the region of the midfoot/arch which appears to be mainly related to [id number] [id number] disease. And the resulting/ associated pes cavus The patient had multiple surgeries which adds to the complexity in this evaluation. The surgical elements yield some metallic artifact & signal changes. Overview deformities outlining the text. Most importantly see no acute findings no acute fracture or evidence of osteomyelitis There is a specific area of concern clinically then please feel free to review images with us and radiology.
== END ==
PROVIDERS: Family Provider Internal Medicine Adolescent Medicine; PCP Internal Medicine Adolescent Medicine; Visit Provider Internal Medicine Adolescent Medicine
DX: M14.60 Charcot's joint, unspecified site (principal); M79.89 Other specified soft tissue disorders
CPT/HCPCS: 73718

== ENCOUNTER → 2018-04-07 08:37 | Outpatient (POV) | payer MEDICARE, MEDICAID, SELFPAY ==
[2018-04-07 09:10] VITALS: BP 151/94; PULSE 87; RESP 18; O2SAT 98; BMI 29.9
--- NOTE | 2018-04-07 10:08 | HMH.PAINSOAP ---
[facility] Pain Management SOAP Note Subjective:: This patient is a pleasant 62-year-old white female who we are treating for back pain with lumbar radiculopathy symptoms. Patient is following up after lumbar epidural steroid injection. Patient only had 1 day relief with this. She rates her pain a 10 out of 10. Patient would like to discuss neuromodulation. Patient states she has neck and arm pain along with back and leg pain. Patient and I discussed a neurostimulator and I gave her information in regards to this. Patient is not on any anti-coagulation therapy. ROS General: no recent weight change, no fever, no sleep disturbances Respiratory: no cough, no shortness of air, no recurring pulmonary infections Cardiovascular/Peripheral Vascular: No chest pain, No palpitations, no edema, no shortness of breath. Gastrointestinal: no incontinence, normal bowel movements reported Genitourinary: no incontinence Musculoskeletal: Neck and arm pain, low back and leg Psychiatric: normal mood/ affect Neurological: [denies weakness in extremities], [denies balance issues] Objective:: Physical Exam General: Alert and oriented x3, no acute distress, pleasant and cooperative, [on room air] Lungs: Resps E/U, Symmetrical chest expansion, Eyes: PERRL Musculoskeletal: Flexion and extension of cervical and lumbar spine somewhat guarded secondary to pain, deep tendon reflexes normal, strength in upper and lower extremities [5/5], [abnormal gait noted] Neurological: speech clear, medical record coder equal, no gross sensory deficits Assessment:: Degenerative disc disease of lumbar spine with lumbar radiculopathy symptoms with significant scoliosis and neural foraminal narrowing, neck pain, cervical radiculopathy Plan:: I gave the patient information in regards to neuro stimulation. Patient is going to review this information and call us with any questions. Patient and I discussed trialing and implantation process. Patient is going to call and let us know if she wants to move forward with this if she does we will send her for psychological evaluation we will go ahead and have her evaluated for both a neurostimulator and a pump This note was dictated using voice recognition software and may contain errors or omissions
--- NOTE | 2018-04-07 10:11 | P.CONS_ITS ---
[facility] Pain Management SOAP Note Subjective:: This patient is a pleasant 62-year-old white female who we are treating for back pain with lumbar radiculopathy symptoms. Patient is following up after lumbar epidural steroid injection. Patient only had 1 day relief with this. She rates her pain a 10 out of 10. Patient would like to discuss neuromodulation. Patient states she has neck and arm pain along with back and leg pain. Patient and I discussed a neurostimulator and I gave her information in regards to this. Patient is not on any anti-coagulation therapy. ROS General: no recent weight change, no fever, no sleep disturbances Respiratory: no cough, no shortness of air, no recurring pulmonary infections Cardiovascular/Peripheral Vascular: No chest pain, No palpitations, no edema, no shortness of breath. Gastrointestinal: no incontinence, normal bowel movements reported Genitourinary: no incontinence Musculoskeletal: Neck and arm pain, low back and leg Psychiatric: normal mood/ affect Neurological: [denies weakness in extremities], [denies balance issues] Objective:: Physical Exam General: Alert and oriented x3, no acute distress, pleasant and cooperative, [ on room air] Lungs: Resps E/U, Symmetrical chest expansion, Eyes: PERRL Musculoskeletal: Flexion and extension of cervical and lumbar spine somewhat guarded secondary to pain, deep tendon reflexes normal, strength in upper and lower extremities [5/5], [abnormal gait noted] Neurological: speech clear, co op equal, no gross sensory deficits Assessment:: Degenerative disc disease of lumbar spine with lumbar radiculopathy symptoms with significant scoliosis and neural foraminal narrowing, neck pain, cervical radiculopathy Plan:: I gave the patient information in regards to neuro stimulation. Patient is going to review this information and call us with any questions. Patient and I discussed trialing and implantation process. Patient is going to call and let us know if she wants to move forward with this if she does we will send her for psychological evaluation we will go ahead and have her evaluated for both a neurostimulator and a pump This note was dictated using voice recognition software and may contain errors or omissions
== END ==
PROVIDERS: Family Provider Internal Medicine Adolescent Medicine; PCP Internal Medicine Adolescent Medicine; Visit Provider Clinical Nurse Specialist Family Health
DX: M51.16 Intervertebral disc disorders with radiculopathy, lumbar region (principal); M41.9 Scoliosis, unspecified; M54.2 Cervicalgia
CPT/HCPCS: 99213

== ENCOUNTER → 2018-06-03 10:38 | Outpatient (POV) | payer MEDICARE, MEDICAID, SELFPAY ==
[2018-06-03 10:45] VITALS: BP 142/90; PULSE 110; RESP 18; O2SAT 98; BMI 24.7
--- NOTE | 2018-06-03 12:14 | P.CONS_ITS ---
[facility] Pain Management SOAP Note Subjective:: She is a pleasant 62-year-old white female who presents today for follow-up after neurostimulator trial. Patient states she did not get much relief from this. She states most of her pain is in her low back and her bilateral legs. Patient wants to know what else we can offer her. Patient and I did talk about intrathecal pain pump. Patient would like to be set up for a trial. Patient has tried and failed other means of therapy including injections, physical therapy, oral medications. ROS General: no recent weight change, no fever, no sleep disturbances Respiratory: On oxygen Cardiovascular/Peripheral Vascular: No chest pain, No palpitations, no edema, no shortness of breath. Gastrointestinal: no incontinence, normal bowel movements reported Genitourinary: no incontinence Musculoskeletal: Back pain, leg pain Psychiatric: normal mood/ affect, Neurological: [denies weakness in extremities], [denies balance issues] Objective:: Physical Exam General: Alert and oriented x3, no acute distress, pleasant and cooperative, on oxygen Lungs: Resps E/U, Symmetrical chest expansion, Eyes: PERRL Musculoskeletal: Flexion and extension of lumbar spine somewhat guarded secondary to pain, deep tendon reflexes normal, strength in upper and lower extremities [5/5], [abnormal gait noted] Neurological: speech clear, photo finish photographer equal, no gross sensory deficits Assessment:: Degenerative disc disease lumbar spine with lumbar radiculopathy Plan:: We will try an intrathecal pain pump trial for the patient. If she does not get much relief from this I believe we have exhausted most of our options. This note was dictated using voice recognition software and may contain errors or omissions
== END ==
PROVIDERS: Family Provider Internal Medicine Adolescent Medicine; PCP Internal Medicine Adolescent Medicine; Visit Provider Clinical Nurse Specialist Family Health
DX: M51.16 Intervertebral disc disorders with radiculopathy, lumbar region (principal)
CPT/HCPCS: 99213

== ENCOUNTER → 2018-07-08 10:41 | Outpatient (POV) | payer MEDICARE, MEDICAID, SELFPAY ==
[2018-07-08 11:18] VITALS: BP 134/80; PULSE 114; RESP 18; O2SAT 98; BMI 18.0
--- NOTE | 2018-07-08 11:31 | P.CONS_ITS ---
[facility] Pain Management SOAP Note Subjective:: Is a pleasant 62-year-old white female who presents today for follow-up after intrathecal pain pump trial. Patient did extremely well. She had her catheter placed at the T10 vertebral level. Patient states she had 2-1/2 days of 80% relief. Patient states she is much more active. She is interested in moving forward with a permanent implant. She is not on any anticoagulation therapy. She is trying to stay as functional as possible. She rates her pain a 10 out of 10 today. ROS General: no recent weight change, no fever, no sleep disturbances Respiratory: no cough, no shortness of air, no recurring pulmonary infections Cardiovascular/Peripheral Vascular: No chest pain, No palpitations, no edema, no shortness of breath. Gastrointestinal: no incontinence, normal bowel movements reported Genitourinary: no incontinence Musculoskeletal: Back pain, leg pain Psychiatric: normal mood/ affect, Neurological: [denies weakness in extremities], [denies balance issues] Objective:: Physical Exam General: Alert and oriented x3, no acute distress, pleasant and cooperative, on O2 Lungs: Resps E/U, Symmetrical chest expansion, Eyes: PERRL Musculoskeletal: Flexion and extension of lumbar spine somewhat guarded secondary to pain, deep tendon reflexes normal, strength in upper and lower extremities [5/5], [abnormal gait noted] Neurological: speech clear, melt house centrifugal operator equal, no gross sensory deficits Assessment:: Degenerative disease lumbar spine with lumbar radiculopathy symptoms Plan:: We will get her set up for a permanent implant with catheter being at T10. Patient has tried and failed injections, physical therapy, anti-inflammatories. I will follow-up with her after her implantation. This note was dictated using voice recognition software and may contain errors or omissions
== END ==
PROVIDERS: PCP Internal Medicine Adolescent Medicine; Visit Provider Clinical Nurse Specialist Family Health
DX: M51.16 Intervertebral disc disorders with radiculopathy, lumbar region (principal)
CPT/HCPCS: 99213

== ENCOUNTER → 2018-08-04 11:14 | Outpatient (POV) | payer MEDICARE, MEDICAID, SELFPAY ==
[2018-08-04 11:57] VITALS: BP 115/87; PULSE 78; RESP 18; O2SAT 99; BMI 23.6
--- NOTE | 2018-08-04 12:20 | P.PCN_ITS ---
- Procedure Date: 08/04/18 Time: 12:00 Anesthesiologist:: Jackie Antonio APRN Complications:: None Pre-procedure Diagnosis:: Degenerative disc disease lumbar spine with lumbar radiculopathy Post-procedure Diagnosis:: Same Indications for Procedure:: Is a pleasant 62-year-old white female who presents today for follow-up after intrathecal pain pump implantation. She is doing well she is currently on a morphine infusion of 0.25 mg nightly she denies side effects. Patient rates her pain a 7 out of 10 today. Patient would like an increase in her PTC set up today. Physical Exam General: Alert and oriented x3, no acute distress, pleasant and cooperative, on O2 Lungs: Resps E/U, Symmetrical chest expansion Eyes: PERRL Musculoskeletal: Flexion and extension of lumbar spine somewhat guarded secondary to pain, deep tendon reflexes normal, strength in upper and lower extremities [5/5], [abnormal gait noted] Neurological: speech clear, freight shipping agent equal, no gross sensory deficits Procedure Details:: Informed consent was obtained and the risk and benefits of the procedure were explained to the patient. The patient was taken to the procedure room where noninvasive monitoring was placed including noninvasive blood pressure cuff and pulse oximeter. Patient's pump was interrogated. The infusion rate was increased to 0.3 mg and the PTC was set up at 0.03 mg every 6 hours as needed. The patient tolerated the procedure well. Plan and Disposition:: I will follow-up with the patient in 2 weeks and reassess her symptoms at that time. Patient's been instructed to call the office if she has any issues prior to her next appointment. This note was dictated using voice recognition software and may contain errors or omissions
== END ==
PROVIDERS: PCP Internal Medicine Adolescent Medicine; Visit Provider Clinical Nurse Specialist Family Health
DX: M51.16 Intervertebral disc disorders with radiculopathy, lumbar region (principal)
CPT/HCPCS: 62368

== ENCOUNTER → 2018-08-18 12:53 | Outpatient (POV) | payer MEDICARE, MEDICAID, SELFPAY ==
--- NOTE | 2018-08-18 13:14 | [facility].PMPROC ---
- Procedure Date: 08/18/18 Time: 13:14 Anesthesiologist:: Jackie Antonio APRN Complications:: None Pre-procedure Diagnosis:: Degenerative disc disease lumbar spine with lumbar radiculopathy Post-procedure Diagnosis:: Same Indications for Procedure:: Patient is a pleasant 62-year-old white female who presents today for intrathecal pain pump refill and reprogram. Patient has been having difficulty with her boluses. Patient's current dose of 0.3 mg with 0.12 mg of potential boluses. She rates her pain today a 7 out of 10. We will switch her to a periodic flow today. She denies side effects or medication. Physical Exam General: Alert and oriented x3, no acute distress, pleasant and cooperative, on O2 Lungs: Resps E/U, Symmetrical chest expansion, Eyes: PERRL Musculoskeletal: Flexion and extension of lumbar spine somewhat guarded secondary to pain, deep tendon reflexes normal, strength in upper and lower extremities [5/5], [abnormal gait noted] Neurological: speech clear, consulting hr professional equal, no gross sensory deficits Procedure Details:: Informed consent was obtained and the risk and benefits of the procedure were explained to the patient. The patient was taken to the procedure room where noninvasive monitoring was placed including noninvasive blood pressure cuff and pulse oximeter. Patient's pump was interrogated. The infusion rate was changed to 0.045 mg of morphine every 2 hours for total daily dose of 0.54 mg a day. The patient tolerated the procedure well. Plan and Disposition:: I will follow-up with the patient and her next appointment and reassess her symptoms at that time. Patient's been instructed to call the office if she has any issues prior to her next appointment. This note was dictated using voice recognition software and may contain errors or omissions
[2018-08-18 13:38] VITALS: BP 144/99; PULSE 89; RESP 18; O2SAT 98; BMI 24.7
[2018-08-18 15:09] LABS: Amphetamine/Metha Screen,Urine Negative ng/mL (<1000); Barbiturates Screen,Urine Negative ng/mL (<200); Benzodiazepines Screen,Urine Negative ng/mL (<200); Cannabinoid Screen,Urine Negative ng/mL (<50); Cocaine Screen,Urine Negative ng/mL (<300); Methadone Screen,Urine Negative ng/mL (<300); Opiate Screen,Urine Negative ng/mL (<300); Phencyclidine Screen,Urine Negative ng/mL (<25)
[2018-08-23 21:55] LABS: Opiates Negative (Cutoff=100)
== END ==
PROVIDERS: PCP Internal Medicine Adolescent Medicine; Visit Provider Clinical Nurse Specialist Family Health
DX: M51.36 Other intervertebral disc degeneration, lumbar region (principal); Z79.899 Other long term (current) drug therapy
CPT/HCPCS: 62368; 80305; 80361; 80365; G0480

== ENCOUNTER 2018-09-01 13:00 | Inpatient (IN) ==
--- NOTE | 2018-09-01 13:32 | Consult Report ---
[facility] Pain Management SOAP Note Subjective:: Is a pleasant 62-year-old white female who presents today for up after pump adjustment. Patient states she is doing well other than her potential pneumonia. She rates her pain a 6 out of 10. Patient is asking today why she cannot feel her pump medicine kicking and I have reiterated with her that she will not have that sensation. Patient states her pain score has gone down significantly since the beginning of this process. ROS General: no recent weight change, no fever, no sleep disturbances Respiratory: Current cough Cardiovascular/Peripheral Vascular: No chest pain, No palpitations, no edema, no shortness of breath. Gastrointestinal: no incontinence, normal bowel movements reported Genitourinary: no incontinence Musculoskeletal: Back pain, leg pain Psychiatric: normal mood/ affect, Neurological: [denies weakness in extremities], [denies balance issues] Objective:: Physical Exam General: Alert and oriented x3, no acute distress, pleasant and cooperative, on oxygen Lungs: Resps E/U, Symmetrical chest expansion, Eyes: PERRL Musculoskeletal: Flexion and extension of lumbar spine somewhat guarded secondary to pain, deep tendon reflexes normal, strength in upper and lower extremities [5/5], [abnormal gait noted] Neurological: speech clear, house parent equal, no gross sensory deficits Assessment:: Degenerative disc disease lumbar spine with lumbar radiculopathy Plan:: We will leave her pump settings as is at this time. I will follow-up with her at her next intrathecal pain pump refill and reprogram. Patient's been instructed to call the office if she has any issues prior to her next appointment. This note was dictated using voice recognition software and may contain errors or omissions
[2018-09-01 16:31] LABS: Basophils % 0.7 % (0.1-2.0); Eosinophils # 0.1 K/mm3 (0.0-0.4); Eosinophils % 2.3 % (0.1-12.0); Hematocrit 44.4 % (37.0-47.0); Hemoglobin 13.4 g/dL (12.2-16.2); Lymphocytes # 1.5 K/mm3 (0.7-4.5); Lymphocytes % 24.6 % (10-50); Mean Corpuscular HGB Conc 30.1 g/dL (31.8-35.4); Mean Corpuscular Hemoglobin 28.7 pg (27.0-31.2); Mean Corpuscular Volume 95.3 fl (81-99); Monocytes # 0.4 K/mm3 (0.1-1.0); Monocytes % 5.6 % (1.7-9.3); Neutrophils # 4.2 K/mm3 (1.8-7.8); Neutrophils % 66.7 % (37.0-80.0); Platelet Count 367 K/mm3 (142-424); Red Blood Count 4.66 M/mm3 (4.20-5.40); Red Cell Distribution Width 14.9 % (11.5-17.5); White Blood Count 6.2 K/mm3 (4.8-10.8)
[2018-09-01 16:36] LABS: Anion Gap 11.9 mEq/L (5-15); Potassium 3.9 mmoL/L (3.5-5.1)
--- NOTE | 2018-09-01 22:08 | History & Physical Report ---
*Admission Date: 09/01/18 *Chief complaint: Cough and fever *History of present illness: 62 y/o WF with Eenbqva-Zafeb-Muiix disease and COPD with frequent exacerbations... to office today with SOA, KEMP, fever, cough and tachycardia - admitted for COPD exacerbation and probable CAP. 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 Denies: Blood Transfusion Reaction Other Surgeries: Yes: Tubal Ligation, Other. No: Pacemaker Amputation: No Fractures: No - *Social History Educational Level: Attended High School Smoking Status: Former smoker Tobacco Type: cigarettes Alcohol Intake: never Alcohol Intake Frequency:: other Occupational Status: retired Housing: apartment Household Members: family Travel in the last 8 weeks: None - Psychiatric History Expresses thoughts of harming self/others: None Suicide Plan Description: No Plan Pschychiatric History:: Reports:: Depression *Family Hx:: Diabetes, Heart Attack, Hypertension Review of Systems - Review of Systems Review of systems:: pertinent systems reviewed and negative unless documented below - *Cardiovascular Reports shortness of breath with activity - *Respiratory Reports change in phlegm color, Reports chest congestion, Reports shortness of breath with activity, Reports excessive phlegm production - *Musculoskeletal Reports abnormal walking, Reports joint pain, Reports joint swelling, Reports limited joint movement Meds Home Medications Medication Instructions Recorded Confirmed Type Fluticasone/Salmeterol [Advair 1 puff IH BID 11/22/17 09/01/18 History 100/50mcg diskus] Gabapentin [Gabapentin 300mg Cap] 300 mg PO 5XDAY 11/22/17 09/01/18 History Montelukast Sodium [Singulair 10mg 10 mg PO HS 11/22/17 09/01/18 History tablet] Pantoprazole Sodium [Protonix 40mg 40 mg PO DAILY 11/22/17 09/01/18 History tablet] Tizanidine HCl [Zanaflex] 4 mg PO TIDP PRN 11/22/17 09/01/18 History Fluticasone Furoate [Flonase 2 spray NS DAILY 12/30/17 09/01/18 History Sensimist] Linaclotide [Linzess] 145 mcg PO DAILY 12/30/17 09/01/18 History raNITIdine HCl [Ranitidine HCl] 150 mg PO BID 12/30/17 09/01/18 History Albuterol Sulfate [Albuterol HFA 2 puffs IH Q4HP PRN 12/31/17 07/16/18 History Inhaler] SUMAtriptan succinate [Sumatriptan 100 mg PO NEEDED PRN 12/31/17 07/16/18 History Succinate] Sertraline HCl [Zoloft 100mg 200 mg PO DAILY 12/31/17 09/01/18 History tablet] Bacitracin [Bacitracin Zinc Oint 1 applic TOPICAL BID 05/15/18 07/16/18 History 30gm Tube] Hydrocortisone [Hydrocortisone 1% 0 gm TP TID 05/15/18 07/16/18 History Cream 30gm Tube] Glycopyrrolate/Formoterol Fum 2 puffs IH BID 07/16/18 09/01/18 History [Bevespi Aerosphere Inhaler] Alendronate Sodium [Fosamax 70mg 70 mg PO WEEKLY 09/01/18 09/01/18 History Tablet] Lisinopril [Lisinopril 40mg Tablet] 40 mg PO DAILY 09/01/18 09/01/18 History Ondansetron [Zofran 4mg ODT] 4 mg PO Q8HP PRN 09/01/18 09/01/18 History Tamsulosin HCl [Flomax 0.4mg 0.4 mg PO HS 09/01/18 09/01/18 History capsule] Tramadol HCl [Tramadol 50mg 50 mg PO QIDP PRN 09/01/18 09/01/18 History Tab] Trazodone HCl 50 mg PO HSP PRN 09/01/18 09/01/18 History Allergies Allergy/AdvReac Type Severity Reaction Status Date / Time morphine Allergy Severe CHEST PAIN Verified 07/16/18 07:39 iodine Allergy Unknown I-HIVES Verified 07/16/18 07:39 Penicillins Allergy Unknown I-HIVES Verified 07/16/18 07:39 Exam Vital signs and Labs for Last 24 Hours: Temp Pulse Resp BP Pulse Ox 97.8 F 112 H 18 103/64 L 92 L 09/01/18 19:51 09/01/18 21:01 09/01/18 19:51 09/01/18 19:51 09/01/18 21:01 Laboratory Results - last 24 hr 09/01/18 16:21: WBC 6.2, RBC 4.66, Hgb 13.4, Hct 44.4, MCV 95.3, MCH 28.7, MCHC 30.1 L, RDW 14.9, Plt Count 367, MPV 7.0 L, Neut % (Auto) 66.7, Lymph % (Auto) 24.6, [place] % (Auto) 5.6, Eos % (Auto) 2.3, Baso % (Auto) 0.7, Neut # (Auto) 4.2, Lymph # (Auto) 1.5, [place] # (Auto) 0.4, Eos # (Auto) 0.1, Baso # (Auto) 0.0 09/01/18 16:21: Sodium 134 L, Potassium 3.9, Chloride 97 L, Carbon Dioxide 29, Anion Gap 11.9, BUN 12, Creatinine 0.71, Estimated Creat Clear 86, Estimated GFR 84, Est GFR ( Amer) 102, Glucose 78, Calcium 9.0 09/01/18 16:21: Mycoplasma pneumon IgM Non-reactive 09/01/18 20:00: Influenza Type A Ag Negative, Influenza Type B Ag Negative I & O for Last 24 hours: Intake & Output 08/30/18 08/31/18 09/01/18 09/02/18 11:59 11:59 11:59 11:59 Intake Total 240 / 240 Balance 240 / 240 Weight 142 lb 7 oz Microbiology Reports for the Last 24 Hours: Microbiology 09/01/18 17:25 Sputum - Expectorated Sputum Gram Stain - Final - Constitutional mild distress, chronically ill appearing Comments: In power mobility device in office - *Routine HEENT Exam Head: Present: atraumatic Eye: Present: EOMI, PERRL ENT: Present: mucous membranes moist - *Routine Neck Exam Present: supple, full ROM. Absent: JVD - *Routine Respiratory Exam Present: decreased breath sounds, rales (in righ base), rhonchi, wheezes, crackles, diminished air movement - *Routine Cardiovascular Exam Present: RRR, Normal S1, Normal S2 - *Routine Abdominal Exam Present: soft, normoactive bowel sounds - *Routine Extremities Exam Comments: Old deformities noted. Poor circulaiton, but normal cap refil - *Routine Neurological Exam Present: alert, oriented X3, CN II-XII intact Assessment and Plan (1) Acute exacerbation of chronic obstructive pulmonary disease (COPD) Current visit: No Status: Acute Category: Medical Code(s): J44.1 - Chronic obstructive pulmonary disease with (acute) exacerbation ADmit to [facility] - IV abx, pulmonary toilet. Hold on steroids for now given lack of wheezing. (2) Community acquired pneumonia Current visit: No Status: Acute Category: Medical Code(s): J18.9 - Pneumonia, unspecified organism
--- NOTE | 2018-09-02 07:32 | Pharmacy Consult Notes ---
[facility] Pharmacy VTE Monitoring - Patient Demographics Admission date: 09/01/18 Report Date: 09/02/18 Time: 07:32 Allergies/Adverse Reactions: Patient Allergies morphine Allergy (Severe, Verified 07/16/18 07:39) CHEST PAIN iodine Allergy (Unknown, Verified 07/16/18 07:39) I-HIVES Penicillins Allergy (Unknown, Verified 07/16/18 07:39) I-HIVES Height: 1.63 m Weight: 64.609 kg - VTE Risk Labs: VTE Related Lab Results Hgb 13.4 g/dL (12.2-16.2) 09/01/18 16:21 Hct 44.4 % (37.0-47.0) 09/01/18 16:21 Plt Count 367 K/mm3 (142-424) 09/01/18 16:21 BUN 12 mg/dL (7-18) 09/01/18 16:21 Creatinine 0.71 mg/dL (0.55-1.02) 09/01/18 16:21 Estimated Creat Clear 86 mL/min (50-200) 09/01/18 16:21 - Prophylaxis VTE Prophylaxis Ordered?: Yes Types of VTE Prophylaxis: TEDS Knee High Location of Applied Device: Bilateral Lower Extremeties - VTE Diagnosis Confirmed Treatment or plan recommended: Continue Current Treatment
--- NOTE | 2018-09-02 08:29 | Progress Note ---
Internal Medicine - PN: Subj *Date: 09/02/18 *Time: 07:45 Interval history: Ms. De Leon has remained stable overnight. Continues to have productive cough. Tolerating baseline oxygen requirement. Continuing IV antibiotics while sputum culture processes. Good p.o. intake. Ambulating with walker to bathroom. Afebrile, hemodynamically stable, no emesis/diarrhea. Reports chest wall discomfort due to coughing and some mild nausea. Exam Vital signs and Labs for Last 24 Hours: Temp Pulse Resp BP Pulse Ox 98.6 F 96 H 19 103/59 L 97 09/02/18 07:23 09/02/18 07:23 09/02/18 07:23 09/02/18 07:23 09/02/18 07:23 Laboratory Results - last 24 hr 09/01/18 16:21: WBC 6.2, RBC 4.66, Hgb 13.4, Hct 44.4, MCV 95.3, MCH 28.7, MCHC 30.1 L, RDW 14.9, Plt Count 367, MPV 7.0 L, Neut % (Auto) 66.7, Lymph % (Auto) 24.6, [place] % (Auto) 5.6, Eos % (Auto) 2.3, Baso % (Auto) 0.7, Neut # (Auto) 4.2, Lymph # (Auto) 1.5, [place] # (Auto) 0.4, Eos # (Auto) 0.1, Baso # (Auto) 0.0 09/01/18 16:21: Sodium 134 L, Potassium 3.9, Chloride 97 L, Carbon Dioxide 29, Anion Gap 11.9, BUN 12, Creatinine 0.71, Estimated Creat Clear 86, Estimated GFR 84, Est GFR ( Amer) 102, Glucose 78, Calcium 9.0 09/01/18 16:21: Mycoplasma pneumon IgM Non-reactive 09/01/18 20:00: Influenza Type A Ag Negative, Influenza Type B Ag Negative I & O for Last 24 hours: Intake & Output 08/30/18 08/31/18 09/01/18 09/02/18 23:59 23:59 23:59 23:59 Intake Total 390 / 390 961 / 961 Output Total 500 / 500 Balance -110 / -110 961 / 961 Weight 64.609 kg 64.609 kg Microbiology Reports for the Last 24 Hours: Microbiology 09/01/18 17:25 Sputum - Expectorated Sputum Gram Stain - Final 09/01/18 17:25 Sputum - Expectorated Sputum Sputum Culture - Preliminary Gram Negative Rods Narrative: - Constitutional mild distress, chronically ill appearing Comments: in Bed on exam - *Routine HEENT Exam Head: Present: atraumatic Eye: Present: EOMI, PERRL ENT: Present: mucous membranes moist - *Routine Neck Exam Present: supple, full ROM. Absent: JVD - *Routine Respiratory Exam Present: decreased breath sounds, rales (in right base), rhonchi, wheezes, crackles, diminished air movement; right worse than left - *Routine Cardiovascular Exam Present: RRR, Normal S1, Normal S2 - *Routine Abdominal Exam Present: soft, normoactive bowel sounds - *Routine Extremities Exam Comments: Old deformities noted. Poor circulaiton, but normal cap refil - *Routine Neurological Exam Present: alert, oriented X3, CN II-XII intact Assessment and Plan (1) Acute exacerbation of chronic obstructive pulmonary disease (COPD) Current visit: No Status: Acute Category: Medical Code(s): J44.1 - Chronic obstructive pulmonary disease with (acute) exacerbation (2) Community acquired pneumonia Current visit: No Status: Acute Category: Medical Code(s): J18.9 - Pneumonia, unspecified organism - Assessment and plan all Dx Assessment and Plan for all problems:: Continue aggressive pulmonary toilet. Continue antibiotics, transition oral azithromycin. Patient has been previously treated with cefepime and tolerated well, will de-escalate Invanz to cefepime. Continue to monitor sputum culture. If no specific pathogen to guide therapy, will transition to Omnicef and azithromycin for oral outpatient therapy. Initiating steroids today as patient is wheezy. Initiate duo nebs. -Tolerating baseline oxygen -Zofran for nausea -Regular diet -Discontinue IV fluids she is tolerating good oral intake -Goal of out of bed and ambulating to bathroom independently with use of walker -continues to require inpatient management
--- NOTE | 2018-09-03 08:20 | Progress Note ---
Internal Medicine - PN: Subj *Date: 09/03/18 *Time: 08:18 Interval history: Patient feels a little bit better, but reports that she continues to be short of air with movement and occasionally has wheezing. Her oxygen levels however on her baseline O2 are stable. Exam Vital signs and Labs for Last 24 Hours: Temp Pulse Resp BP Pulse Ox 97.7 F 89 19 113/67 95 09/03/18 07:23 09/03/18 07:23 09/03/18 07:23 09/03/18 07:23 09/03/18 07:23 I & O for Last 24 hours: Intake & Output 08/31/18 09/01/18 09/02/18 09/03/18 11:59 11:59 11:59 11:59 Intake Total 1591 / 1591 2437 / 2437 Output Total 500 / 500 Balance 1091 / 1091 2437 / 2437 Weight 142 lb 7 oz Microbiology Reports for the Last 24 Hours: Microbiology 09/01/18 17:25 Sputum - Expectorated Sputum Gram Stain - Final 09/01/18 17:25 Sputum - Expectorated Sputum Sputum Culture - Final Pseudomonas aeruginosa Narrative: Rhonchi bilateral some expiratory wheezing but better air movement than on admission with less thick rhonchi. Heart rate regular. Him and soft. Patient is alert. Pleasant. Oriented x3. Assessment and Plan (1) Acute exacerbation of chronic obstructive pulmonary disease (COPD) Current visit: No Status: Acute Category: Medical Code(s): J44.1 - Chronic obstructive pulmonary disease with (acute) exacerbation (2) Community acquired pneumonia Current visit: No Status: Acute Category: Medical Code(s): J18.9 - Pneumonia, unspecified organism (3) Pseudomonas pneumonia Current visit: No Status: Acute Category: Medical Code(s): J15.1 - Pneumonia due to Pseudomonas Continue supportive care for COPD exacerbation. Given her Pseudomonas culture we have transitioned antibiotics to cefepime and levofloxacin for double coverage. We will investigate swing bed transfer tomorrow for a good 10-14 days of IV therapy for this difficult to treat organ. PICC line placement today.
--- NOTE | 2018-09-04 11:11 | Swing Bed Reports ---
*Admission Date: 09/01/18 *History of present illness: 62 y/o WF with Qhfmjvz-Oftpa-Xgqqy disease and COPD with frequent exacerbations... to office today with SOA, KEMP, fever, cough and tachycardia - admitted for COPD exacerbation and probable CAP. Hospital Course Hospital Course: Patient was admitted for IV antibiotics and duonebs. Sputum culture was obtained which grew pseudomonas. Shortness of breath has improved and she is tolerating oral intake. PICC line was placed which she tolerated well. Patient will transfer to swing bed today for 10-14 days of IV cefepime and oral Levaquin. Exam Vital signs and Labs for Last 24 Hours: Temp Pulse Resp BP Pulse Ox 97.8 F 101 H 21 125/71 96 09/04/18 08:00 09/04/18 08:00 09/04/18 08:00 09/04/18 08:00 09/04/18 08:00 I & O for Last 24 hours: Intake & Output 09/01/18 09/02/18 09/03/18 09/04/18 11:59 11:59 11:59 11:59 Intake Total 1591 / 1591 2678 / 2678 840 / 840 Output Total 500 / 500 Balance 1091 / 1091 2678 / 2678 840 / 840 Weight 142 lb 7 oz Microbiology Reports for the Last 24 Hours: Microbiology 09/01/18 16:21 Blood Blood Culture - Preliminary NO GROWTH AFTER 48 HOURS 09/01/18 16:21 Blood Blood Culture - Preliminary NO GROWTH AFTER 48 HOURS 09/01/18 17:25 Sputum - Expectorated Sputum Gram Stain - Final 09/01/18 17:25 Sputum - Expectorated Sputum Sputum Culture - Final Pseudomonas aeruginosa Narrative: Alert and oriented x 3. No acute neuro deficits. Rate and rhythm regular. No LE edema. LS with wheezes scattered rhonchi and crackles bilateral. Abdomen soft and nontender. Skin pink, warm and dry. ENT exam unremarkable. Results Labs on day of discharge: Preliminary micro results at discharge 09/01/18 16:21 Blood Culture - Preliminary Blood NO GROWTH AFTER 48 HOURS 09/01/18 16:21 Blood Culture - Preliminary Blood NO GROWTH AFTER 48 HOURS DS: Diagnosis - Discharge Diagnosis (1) Acute exacerbation of chronic obstructive pulmonary disease (COPD) Status: Acute (2) Community acquired pneumonia Status: Acute (3) Pseudomonas pneumonia Status: Acute Discharge/Transfer (Swing Bed) - Plan of Care Resident has been informed of condition and prognosis?: Yes Mobility Status: ambulatory w/o assistance Goal of treatment:: To complete 10-14 days of antibiotics without increase in WBC or fever Rehab Potential: Fair Prognosis:: good Mental Status: Oriented x 3 I concur with the most recent H&P: Yes Date of most recent H&P: 09/01/18 Certification: I have reviewed and agree with this resident's plan of care. I certify that post-hospital usp facility services are required to be given on an inpatient basis because of the need for usp care on a continuing basis for the condition(s) for which he/she is receiving inpatient hospital services prior to admission to swing bed. I also certify that the resident meets existing SNF level of care definition. - Discharge from Acute Disposition: [facility] Bed Condition: Fair Current Home Med List: Home Medications Medication Instructions Recorded Confirmed Type 0.9 % Sodium Chloride [Saline 10 ml IV NEEDED PRN syringe 09/04/18 Rx Flush 10mL syringe] 0.9 % Sodium Chloride [Saline 10 ml IV NEEDED PRN syringe 09/04/18 Rx Flush 10mL syringe] Acetaminophen [Acetaminophen 325mg 650 mg PO Q4HP PRN tablet 09/04/18 Rx tab] Cefepime HCl [Maxipime 2gm Vial] 2 gm IV Q8H vial 09/04/18 Rx Famotidine [Pepcid 20mg Tablet] 20 mg PO BID tablet 09/04/18 Rx Fluticasone Propionate [Flonase 1 spr NS DAILY bottle 09/04/18 Rx 50mcg nasal spray 16gm] Fluticasone/Salmeterol [Advair 1 puffs IH BID puff 09/04/18 Rx 100/50mcg diskus] Gabapentin [Neurontin 300mg 300 mg PO 5XDAY capsule 09/04/18 Rx capsule] Ipratropium/Albuterol Sulfate 3 ml IH Q1HP PRN ampul.neb 09/04/18 Rx [Duoneb 3mL neb] Ipratropium/Albuterol Sulfate 3 ml IH QIDRT ampul.neb 09/04/18 Rx [Duoneb 3mL neb] Montelukast Sodium [Singulair 10mg 10 mg PO HS tablet 09/04/18 Rx tablet] Non Formulary [Pt's Own Medication] 1 each PO DAILY each 09/04/18 Rx Non Formulary [Pt's Own Medication] 2 each PO BID each 09/04/18 Rx Ondansetron [Zofran 4mg ODT] 4 mg SL Q8HP PRN tab.kwame 09/04/18 Rx Pantoprazole Sodium [Protonix 40mg 40 mg PO DAILY tablet. 09/04/18 Rx tablet] Sertraline HCl [Zoloft 100mg 200 mg PO DAILY tablet 09/04/18 Rx tablet] Sodium Chloride For Inhalation 3 ml IH ONCE PRN vial.neb 09/04/18 Rx [Sodium Chloride 3% 15mL Neb] Tamsulosin HCl [Flomax 0.4mg 0.4 mg PO HS cap.er.24h 09/04/18 Rx capsule] Tizanidine HCl [Zanaflex 4mg 4 mg PO TIDP PRN tablet 09/04/18 Rx tablet] Tramadol HCl [Ultram 50mg 50 mg PO QIDP PRN tablet 09/04/18 Rx tablet] Trazodone HCl [Desyrel 50mg tablet] 50 mg PO HSP PRN tablet 09/04/18 Rx levoFLOXacin [Levaquin 500mg 500 mg PO DAILY #10 tab 09/04/18 Rx tab] Home Med List for Swing Bed: New 0.9 % Sodium Chloride [Saline Flush 10mL syringe] 10 ml IV NEEDED PRN syringe PRN Reason: Maintain Iv Site Acetaminophen [Acetaminophen 325mg tab] 650 mg PO Q4HP PRN tablet PRN Reason: As Needed For Fever Or Pain Cefepime HCl [Maxipime 2gm Vial] 2 gm IV Q8H vial Fluticasone Propionate [Flonase 50mcg nasal spray 16gm] 1 spr NS DAILY bottle Fluticasone/Salmeterol [Advair 100/50mcg diskus] 1 puffs IH BID puff Gabapentin [Neurontin 300mg capsule] 300 mg PO 5XDAY capsule Ipratropium/Albuterol Sulfate [Duoneb 3mL neb] 3 ml IH QIDRT ampul.neb Ipratropium/Albuterol Sulfate [Duoneb 3mL neb] 3 ml IH Q1HP PRN ampul.neb PRN Reason: Shortness Of Breath Montelukast Sodium [Singulair 10mg tablet] 10 mg PO HS tablet Non Formulary [Pt's Own Medication] 1 each PO DAILY each Ondansetron [Zofran 4mg ODT] 4 mg SL Q8HP PRN tab.rapdis PRN Reason: Nausea Pantoprazole Sodium [Protonix 40mg tablet] 40 mg PO DAILY tablet. Sertraline HCl [Zoloft 100mg tablet] 200 mg PO DAILY tablet Sodium Chloride For Inhalation [Sodium Chloride 3% 15mL Neb] 3 ml IH ONCE PRN vial.neb PRN Reason: INDUCE SPUTUM COLLECTION Tamsulosin HCl [Flomax 0.4mg capsule] 0.4 mg PO HS cap.er.24h Tizanidine HCl [Zanaflex 4mg tablet] 4 mg PO TIDP PRN tablet PRN Reason: MUSCLE SPASM Tramadol HCl [Ultram 50mg tablet] 50 mg PO QIDP PRN tablet PRN Reason: Moderate Pain Trazodone HCl [Desyrel 50mg tablet] 50 mg PO HSP PRN tablet PRN Reason: Sleep 0.9 % Sodium Chloride [Saline Flush 10mL syringe] 10 ml IV NEEDED PRN syringe PRN Reason: Maintain Iv Site Famotidine [Pepcid 20mg Tablet] 20 mg PO BID tablet Non Formulary [Pt's Own Medication] 2 each PO BID each levoFLOXacin [Levaquin 500mg tab] 500 mg PO DAILY #10 tab Discontinued Pantoprazole Sodium [Protonix 40mg tablet] 40 mg PO DAILY Montelukast Sodium [Singulair 10mg tablet] 10 mg PO HS Tizanidine HCl [Zanaflex] 4 mg PO TIDP PRN PRN Reason: MUSCLE SPASMS Gabapentin [Gabapentin 300mg Cap] 300 mg PO 5XDAY raNITIdine HCl [Ranitidine HCl] 150 mg PO BID Linaclotide [Linzess] 145 mcg PO DAILY Sertraline HCl [Zoloft 100mg tablet] 200 mg PO DAILY Albuterol Sulfate [Albuterol HFA Inhaler] 2 puffs IH Q4HP PRN PRN Reason: Shortness Of Breath Or Wheezing Glycopyrrolate/Formoterol Fum [Bevespi Aerosphere Inhaler] 2 puffs IH BID Trazodone HCl 50 mg PO HSP PRN PRN Reason: Sleep Tramadol HCl [Tramadol 50mg Tab] 50 mg PO QIDP PRN PRN Reason: Moderate Pain Ondansetron [Zofran 4mg ODT] 4 mg PO Q8HP PRN PRN Reason: Nausea Lisinopril [Lisinopril 40mg Tablet] 40 mg PO DAILY Fluticasone/Salmeterol [Advair 100/50mcg diskus] 1 puff IH BID Fluticasone Furoate [Flonase Sensimist] 2 spray NS DAILY SUMAtriptan succinate [Sumatriptan Succinate] 100 mg PO NEEDED PRN PRN Reason: MIGRAINES Alendronate Sodium [Fosamax 70mg Tablet] 70 mg PO WEEKLY Tamsulosin HCl [Flomax 0.4mg capsule] 0.4 mg PO HS
== END 2018-09-04 11:37 | disposition swing bed (61) | DRG 190 ==
LOC: SC.PAIN 13:00 → 2ND 14:45
PROVIDERS: ADMIT Internal Medicine Adolescent Medicine; ATTEND Internal Medicine Adolescent Medicine
CPT/HCPCS: 36415; 36569; 71010; 71020; 71045; 71046; 80048; 85025; 86738; 87040; 87070; 87077; 87186; 87205; 87275; 87276; 93005; 94640; 94761; C1751; J0456; J1335

== ENCOUNTER 2018-09-04 11:38 | Inpatient (IN) ==
--- NOTE | 2018-09-04 14:21 | Swing Bed Reports ---
[facility] Swing Bed H&P Swing Bed History and Physical: *Admission Date: 09/01/18 *History of present illness: 62 y/o WF with Slzgxmx-Xeymi-Xfrmn disease and COPD with frequent exacerbations... to office today with SOA, KEMP, fever, cough and tachycardia - admitted for COPD exacerbation and probable CAP. 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 Denies: Blood Transfusion Reaction Other Surgeries: Yes: Tubal Ligation, Other. No: Pacemaker Amputation: No Fractures: No - *Social History Educational Level: Attended High School Smoking Status: Former smoker Tobacco Type: cigarettes Alcohol Intake: never Alcohol Intake Frequency:: other Occupational Status: retired Housing: apartment Household Members: family Travel in the last 8 weeks: None - Psychiatric History Expresses thoughts of harming self/others: None Suicide Plan Description: No Plan Pschychiatric History:: Reports:: Depression *Family Hx:: Diabetes, Heart Attack, Hypertension Hospital Course Hospital Course: Patient was admitted for IV antibiotics and duonebs. Sputum culture was obtained which grew pseudomonas. Shortness of breath has improved and she is tolerating oral intake. PICC line was placed which she tolerated well. Patient will transfer to swing bed today for 10-14 days of IV cefepime and oral Levaquin. Exam Vital signs and Labs for Last 24 Hours: Temp Pulse Resp BP Pulse Ox 97.8 F 101 H 21 125/71 96 09/04/18 08:00 09/04/18 08:00 09/04/18 08:00 09/04/18 08:00 09/04/18 08:00 I & O for Last 24 hours: Intake & Output 09/01/18 09/02/18 09/03/18 09/04/18 11:59 11:59 11:59 11:59 Intake Total 1591 / 1591 2678 / 2678 840 / 840 Output Total 500 / 500 Balance 1091 / 1091 2678 / 2678 840 / 840 Weight 142 lb 7 oz Microbiology Reports for the Last 24 Hours: Microbiology 09/01/18 16:21 Blood Blood Culture - Preliminary NO GROWTH AFTER 48 HOURS 09/01/18 16:21 Blood Blood Culture - Preliminary NO GROWTH AFTER 48 HOURS 09/01/18 17:25 Sputum - Expectorated Sputum Gram Stain - Final 09/01/18 17:25 Sputum - Expectorated Sputum Sputum Culture - Final Pseudomonas aeruginosa Narrative: Alert and oriented x 3. No acute neuro deficits. Rate and rhythm regular. No LE edema. LS with wheezes scattered rhonchi and crackles bilateral. Abdomen soft and nontender. Skin pink, warm and dry. ENT exam unremarkable. Results Labs on day of discharge: Preliminary micro results at discharge 09/01/18 16:21 Blood Culture - Preliminary Blood NO GROWTH AFTER 48 HOURS 09/01/18 16:21 Blood Culture - Preliminary Blood NO GROWTH AFTER 48 HOURS DS: Diagnosis - Discharge Diagnosis (1) Acute exacerbation of chronic obstructive pulmonary disease (COPD) Status: Acute (2) Community acquired pneumonia Status: Acute (3) Pseudomonas pneumonia Status: Acute Discharge/Transfer (Swing Bed) - Plan of Care Resident has been informed of condition and prognosis?: Yes Mobility Status: ambulatory w/o assistance Goal of treatment:: To complete 10-14 days of antibiotics without increase in WBC or fever Rehab Potential: Fair Prognosis:: good Mental Status: Oriented x 3 I concur with the most recent H&P: Yes Date of most recent H&P: 09/01/18 Certification: I have reviewed and agree with this resident's plan of care. I certify that post-hospital care home facility services are required to be given on an inpatient basis because of the need for care home care on a continuing basis for the condition(s) for which he/she is receiving inpatient hospital services prior to admission to swing bed. I also certify that the resident meets existing SNF level of care definition. - Discharge from Acute Disposition: [facility] Swing Bed Condition: Fair Current Home Med List: Home Medications Medication Instructions Recorded Confirmed Type 0.9 % Sodium Chloride [Saline 10 ml IV NEEDED PRN syringe 09/04/18 Rx Flush 10mL syringe] 0.9 % Sodium Chloride [Saline 10 ml IV NEEDED PRN syringe 09/04/18 Rx Flush 10mL syringe] Acetaminophen [Acetaminophen 325mg 650 mg PO Q4HP PRN tablet 09/04/18 Rx tab] Cefepime HCl [Maxipime 2gm Vial] 2 gm IV Q8H vial 09/04/18 Rx Famotidine [Pepcid 20mg Tablet] 20 mg PO BID tablet 09/04/18 Rx Fluticasone Propionate [Flonase 1 spr NS DAILY bottle 09/04/18 Rx 50mcg nasal spray 16gm] Fluticasone/Salmeterol [Advair 1 puffs IH BID puff 09/04/18 Rx 100/50mcg diskus] Gabapentin [Neurontin 300mg 300 mg PO 5XDAY capsule 09/04/18 Rx capsule] Ipratropium/Albuterol Sulfate 3 ml IH Q1HP PRN ampul.neb 09/04/18 Rx [Duoneb 3mL neb] Ipratropium/Albuterol Sulfate 3 ml IH QIDRT ampul.neb 09/04/18 Rx [Duoneb 3mL neb] Montelukast Sodium [Singulair 10mg 10 mg PO HS tablet 09/04/18 Rx tablet] Non Formulary [Pt's Own Medication] 1 each PO DAILY each 09/04/18 Rx Non Formulary [Pt's Own Medication] 2 each PO BID each 09/04/18 Rx Ondansetron [Zofran 4mg ODT] 4 mg SL Q8HP PRN tab.rapdis 09/04/18 Rx Pantoprazole Sodium [Protonix 40mg 40 mg PO DAILY tablet.dr 09/04/18 Rx tablet] Sertraline HCl [Zoloft 100mg 200 mg PO DAILY tablet 09/04/18 Rx tablet] Sodium Chloride For Inhalation 3 ml IH ONCE PRN vial.neb 09/04/18 Rx [Sodium Chloride 3% 15mL Neb] Tamsulosin HCl [Flomax 0.4mg 0.4 mg PO HS cap.er.24h 09/04/18 Rx capsule] Tizanidine HCl [Zanaflex 4mg 4 mg PO TIDP PRN tablet 09/04/18 Rx tablet] Tramadol HCl [Ultram 50mg 50 mg PO QIDP PRN tablet 09/04/18 Rx tablet] Trazodone HCl [Desyrel 50mg tablet] 50 mg PO HSP PRN tablet 09/04/18 Rx levoFLOXacin [Levaquin 500mg 500 mg PO DAILY #10 tab 09/04/18 Rx tab] Home Med List for Swing Bed: New 0.9 % Sodium Chloride [Saline Flush 10mL syringe] 10 ml IV NEEDED PRN syringe PRN Reason: Maintain Iv Site Acetaminophen [Acetaminophen 325mg tab] 650 mg PO Q4HP PRN tablet PRN Reason: As Needed For Fever Or Pain Cefepime HCl [Maxipime 2gm Vial] 2 gm IV Q8H vial Fluticasone Propionate [Flonase 50mcg nasal spray 16gm] 1 spr NS DAILY bottle Fluticasone/Salmeterol [Advair 100/50mcg diskus] 1 puffs IH BID puff Gabapentin [Neurontin 300mg capsule] 300 mg PO 5XDAY capsule Ipratropium/Albuterol Sulfate [Duoneb 3mL neb] 3 ml IH QIDRT ampul.neb Ipratropium/Albuterol Sulfate [Duoneb 3mL neb] 3 ml IH Q1HP PRN ampul.neb PRN Reason: Shortness Of Breath Montelukast Sodium [Singulair 10mg tablet] 10 mg PO HS tablet Non Formulary [Pt's Own Medication] 1 each PO DAILY each Ondansetron [Zofran 4mg ODT] 4 mg SL Q8HP PRN tab.rapdis PRN Reason: Nausea Pantoprazole Sodium [Protonix 40mg tablet] 40 mg PO DAILY tablet. Sertraline HCl [Zoloft 100mg tablet] 200 mg PO DAILY tablet Sodium Chloride For Inhalation [Sodium Chloride 3% 15mL Neb] 3 ml IH ONCE PRN vial.neb PRN Reason: INDUCE SPUTUM COLLECTION Tamsulosin HCl [Flomax 0.4mg capsule] 0.4 mg PO HS cap.er.24h Tizanidine HCl [Zanaflex 4mg tablet] 4 mg PO TIDP PRN tablet PRN Reason: MUSCLE SPASM Tramadol HCl [Ultram 50mg tablet] 50 mg PO QIDP PRN tablet PRN Reason: Moderate Pain Trazodone HCl [Desyrel 50mg tablet] 50 mg PO HSP PRN tablet PRN Reason: Sleep 0.9 % Sodium Chloride [Saline Flush 10mL syringe] 10 ml IV NEEDED PRN syringe PRN Reason: Maintain Iv Site Famotidine [Pepcid 20mg Tablet] 20 mg PO BID tablet Non Formulary [Pt's Own Medication] 2 each PO BID each levoFLOXacin [Levaquin 500mg tab] 500 mg PO DAILY #10 tab Discontinued Pantoprazole Sodium [Protonix 40mg tablet] 40 mg PO DAILY Montelukast Sodium [Singulair 10mg tablet] 10 mg PO HS Tizanidine HCl [Zanaflex] 4 mg PO TIDP PRN PRN Reason: MUSCLE SPASMS Gabapentin [Gabapentin 300mg Cap] 300 mg PO 5XDAY raNITIdine HCl [Ranitidine HCl] 150 mg PO BID Linaclotide [Linzess] 145 mcg PO DAILY Sertraline HCl [Zoloft 100mg tablet] 200 mg PO DAILY Albuterol Sulfate [Albuterol HFA Inhaler] 2 puffs IH Q4HP PRN PRN Reason: Shortness Of Breath Or Wheezing Glycopyrrolate/Formoterol Fum [Bevespi Aerosphere Inhaler] 2 puffs IH BID Trazodone HCl 50 mg PO HSP PRN PRN Reason: Sleep Tramadol HCl [Tramadol 50mg Tab] 50 mg PO QIDP PRN PRN Reason: Moderate Pain Ondansetron [Zofran 4mg ODT] 4 mg PO Q8HP PRN PRN Reason: Nausea Lisinopril [Lisinopril 40mg Tablet] 40 mg PO DAILY Fluticasone/Salmeterol [Advair 100/50mcg diskus] 1 puff IH BID Fluticasone Furoate [Flonase Sensimist] 2 spray NS DAILY SUMAtriptan succinate [Sumatriptan Succinate] 100 mg PO NEEDED PRN PRN Reason: MIGRAINES Alendronate Sodium [Fosamax 70mg Tablet] 70 mg PO WEEKLY Tamsulosin HCl [Flomax 0.4mg capsule] 0.4 mg PO HS
--- NOTE | 2018-09-04 15:34 | Pharmacy Consult Notes ---
[facility] VTE Monitoring - Patient Demographics Admission date: 09/04/18 Report Date: 09/04/18 Time: 15:34 Allergies/Adverse Reactions: Patient Allergies morphine Allergy (Severe, Verified 07/16/18 07:39) CHEST PAIN iodine Allergy (Unknown, Verified 07/16/18 07:39) I-HIVES Penicillins Allergy (Unknown, Verified 07/16/18 07:39) I-HIVES Height: 1.63 m Weight: 62.284 kg - Prophylaxis VTE Prophylaxis Ordered?: Yes Types of VTE Prophylaxis: TEDS Knee High Location of Applied Device: Bilateral Lower Extremeties
--- NOTE | 2018-09-06 09:42 | Progress Note ---
Internal Medicine - PN: Subj *Date: 09/06/18 *Time: 09:40 Interval history: Main stable overnight. Baseline shortness of breath. No fevers. No nausea or vomiting. Tolerating regular diet. Ambulating to bathroom multiple times. On baseline oxygen. Exam Vital signs and Labs for Last 24 Hours: Temp Pulse Resp BP Pulse Ox 97.8 F 83 16 106/64 L 97 09/06/18 08:00 09/06/18 08:00 09/06/18 08:00 09/06/18 08:00 09/06/18 08:00 I & O for Last 24 hours: Intake & Output 09/03/18 09/04/18 09/05/18 09/06/18 23:59 23:59 23:59 23:59 Intake Total 600 / 600 2917 / 2917 776 / 776 Output Total 125 / 125 125 / 125 Balance 600 / 600 2792 / 2792 651 / 651 Weight 62.284 kg 62.284 kg Narrative: Alert and oriented x 3. No acute neuro deficits. Rate and rhythm regular, without LE edema LS with wheezes scattered rhonchi and crackles bilateral, stable exam Abdomen soft and nontender. 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 Stopping IV fluids as patient tolerating p.o. intake. Continue breathing treatments. Continues to require swing bed management.
--- NOTE | 2018-09-08 06:41 | Progress Note ---
Internal Medicine - PN: Subj *Date: 09/08/18 *Time: 07:45 Exam Vital signs and Labs for Last 24 Hours: Temp Pulse Resp BP Pulse Ox 97.6 F 68 18 116/68 94 L 09/07/18 20:00 09/08/18 06:32 09/07/18 20:00 09/07/18 20:00 09/08/18 06:32 I & O for Last 24 hours: Intake & Output 09/05/18 09/06/18 09/07/18 09/08/18 23:59 23:59 23:59 23:59 Intake Total 2917 / 2917 1736 / 1736 940 / 940 100 / 100 Output Total 125 / 125 250 / 250 125 / 125 Balance 2792 / 2792 1486 / 1486 815 / 815 100 / 100 Weight 62.284 kg Assessment and Plan (1) Acute exacerbation of chronic obstructive pulmonary disease (COPD) Current visit: No Status: Acute Category: Medical Code(s): J44.1 - Chronic obstructive pulmonary disease with (acute) exacerbation (2) Nzlbvcp-Eciec-Lzskn disease Current visit: No Status: Acute Category: Medical Code(s): 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 Day 04/01 (finish on 09/14/18)
--- NOTE | 2018-09-09 08:17 | Progress Note ---
Internal Medicine - PN: Subj *Date: 09/09/18 *Time: 08:14 Interval history: Ms. De Leon continues to hemodynamically stable. Tolerating home levels of oxygen. Today is 913 of antibiotics. Tolerating regular diet. Denies nausea, vomiting, chest pain shortness of breath, afebrile Exam Vital signs and Labs for Last 24 Hours: Temp Pulse Resp BP Pulse Ox 97.4 F L 70 20 107/64 L 96 09/08/18 19:46 09/09/18 06:00 09/08/18 20:00 09/08/18 19:46 09/09/18 06:00 I & O for Last 24 hours: Intake & Output 09/06/18 09/07/18 09/08/18 09/09/18 23:59 23:59 23:59 23:59 Intake Total 1736 / 1736 940 / 940 1240 / 1240 460 / 460 Output Total 250 / 250 125 / 125 Balance 1486 / 1486 815 / 815 1240 / 1240 460 / 460 - Constitutional Comments: Alert and oriented x 3. No acute neuro deficits. Rate and rhythm regular, without LE edema LS with interval improvement in wheezes scattered rhonchi. no crackles Abdomen soft and nontender. 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 Plan for 10 days total of IV antibiotics (day 10 tomorrow) with completion of 14-day course total in the last 4 days been oral. Patient responding appropriately to therapy. Likely discharge home tomorrow. Would be from pulmonary rehab, will set up in the outpatient setting.
--- NOTE | 2018-09-10 08:20 | Discharge Summary ---
General - General Admission date:: 09/04/18 Discharge date: 09/10/18 HPI HPI: [facility] Swing Bed H&P Swing Bed History and Physical: *Admission Date: 09/01/18 *History of present illness: 62 y/o WF with Ibyxawv-Xksru-Xtoxm disease and COPD with frequent exacerbations... to office today with SOA, KEMP, fever, cough and tachycardia - admitted for COPD exacerbation and probable CAP. Hospital Course in Acute Care: Hospital Course: Patient was admitted for IV antibiotics and duonebs. Sputum culture was obtained which grew pseudomonas. Shortness of breath has improved and she is tolerating oral intake. PICC line was placed which she tolerated well. Patient will transfer to swing bed today for 10-14 days of IV cefepime and oral Levaquin. Hospital Course Hospital Course: Swing bed course was smooth. Patient had no problems, finished up her intravenous cefepime. No fevers were noted. Physical exam improved. Patient will be discharged home today to finish up p.o. Levaquin therapy and with close follow-up in my office. Objective Vital signs: Temp Pulse Resp BP Pulse Ox 97.9 F 78 17 109/66 L 99 09/10/18 08:00 09/10/18 08:00 09/10/18 08:00 09/10/18 08:00 09/10/18 08:00 Narrative: Patient is alert, pleasant, oriented x3. Heart rate regular. Lungs have good air movement. Scattered rhonchi but at baseline. Abdomen soft and nontender. Cranial nerves are intact. Lower extremity neurologic exam compromise as previously noted with orthopedic and neurologic abnormalities from her Essbzmr-Ojhun-Ivxcv syndrome. No skin breakdown noted. DS: Diagnosis - Discharge Diagnosis (1) Acute exacerbation of chronic obstructive pulmonary disease (COPD) Status: Resolved (2) Pchvfhs-Ljoyh-Yrfgj disease Status: Chronic (3) Community acquired pneumonia Status: Resolved (4) Pseudomonas pneumonia Status: Resolved Discharge Plan - Patient Discharge Instructions ACTIVITY: Continue current activity DIET: continue same diet Patient Instructions: DI for Chronic Obstructive Pulmonary Disease, DI for Pneumonia -- Adult - Follow up Plan Follow up with: Neil Tony MD [Primary Care Provider] - 1 week Disposition: Home, Self-Intermediate Medications: Home Medications Medication Instructions Recorded Confirmed Type Albuterol Sulfate [Albuterol HFA 2 puffs IH Q4HP PRN 09/04/18 09/04/18 History Inhaler] Alendronate 35mg Tablet 70 mg PO WEEKLY 09/04/18 09/04/18 History Fluticasone Furoate [Flonase 2 spray NS DAILY 09/04/18 09/04/18 History Sensimist] Fluticasone/Salmeterol [Advair 1 puffs IH BID 09/04/18 09/04/18 History 100/50mcg diskus] Gabapentin [Neurontin 300mg 300 mg PO 5XDAY 09/04/18 09/04/18 History capsule] Glycopyrrolate/Formoterol Fum 2 puffs IH BID 09/04/18 09/04/18 History [Bevespi Aerosphere Inhaler] Linaclotide [Linzess] 145 mcg PO DAILY 09/04/18 09/04/18 History Lisinopril [Lisinopril 40mg Tablet] 40 mg PO DAILY 09/04/18 09/04/18 History Montelukast Sodium [Singulair 10mg 10 mg PO HS 09/04/18 09/04/18 History tablet] Ondansetron [Zofran 4mg ODT] 4 mg SL Q8HP PRN tab.rapdis 09/04/18 09/04/18 Rx Pantoprazole Sodium [Protonix 40mg 40 mg PO DAILY 09/04/18 09/04/18 History tablet] SUMAtriptan succinate [Sumatriptan 100 mg PO NEEDED PRN 09/04/18 09/04/18 History Succinate] Sertraline HCl [Zoloft 100mg 200 mg PO DAILY 09/04/18 09/04/18 History tablet] Tamsulosin HCl [Flomax 0.4mg 0.4 mg PO HS 09/04/18 09/04/18 History capsule] Tizanidine HCl [Zanaflex 4mg 4 mg PO TIDP PRN tablet 09/04/18 09/04/18 Rx tablet] Tramadol HCl [Ultram 50mg 50 mg PO QIDP PRN tablet 09/04/18 09/04/18 Rx tablet] Trazodone HCl [Desyrel 50mg tablet] 50 mg PO HSP PRN tablet 09/04/18 09/04/18 Rx raNITIdine HCl [Ranitidine HCl] 150 mg PO BID 09/04/18 09/04/18 History levoFLOXacin [Levaquin 500mg 500 mg PO 1100 #5 tablet 09/10/18 Rx tab] Prescriptions/Medication Reconciliation: New levoFLOXacin [Levaquin 500mg tab] 500 mg PO 1100 #5 tablet Continue Ondansetron [Zofran 4mg ODT] 4 mg SL Q8HP PRN tab.rapdis PRN Reason: Nausea Tizanidine HCl [Zanaflex 4mg tablet] 4 mg PO TIDP PRN tablet PRN Reason: MUSCLE SPASM Tramadol HCl [Ultram 50mg tablet] 50 mg PO QIDP PRN tablet PRN Reason: Moderate Pain Trazodone HCl [Desyrel 50mg tablet] 50 mg PO HSP PRN tablet PRN Reason: Sleep Tamsulosin HCl [Flomax 0.4mg capsule] 0.4 mg PO HS Sertraline HCl [Zoloft 100mg tablet] 200 mg PO DAILY Pantoprazole Sodium [Protonix 40mg tablet] 40 mg PO DAILY Montelukast Sodium [Singulair 10mg tablet] 10 mg PO HS Fluticasone/Salmeterol [Advair 100/50mcg diskus] 1 puffs IH BID Fluticasone Furoate [Flonase Sensimist] 2 spray NS DAILY Glycopyrrolate/Formoterol Fum [Bevespi Aerosphere Inhaler] 2 puffs IH BID Linaclotide [Linzess] 145 mcg PO DAILY SUMAtriptan succinate [Sumatriptan Succinate] 100 mg PO NEEDED PRN PRN Reason: Migraine Headache raNITIdine HCl [Ranitidine HCl] 150 mg PO BID Lisinopril [Lisinopril 40mg Tablet] 40 mg PO DAILY Gabapentin [Neurontin 300mg capsule] 300 mg PO 5XDAY Albuterol Sulfate [Albuterol HFA Inhaler] 2 puffs IH Q4HP PRN PRN Reason: Shortness Of Breath Or Wheezing Alendronate 35mg Tablet 70 mg PO WEEKLY
== END 2018-09-10 11:50 | disposition home or self-care (01) | DRG 178 ==
LOC: 2ND 11:38
PROVIDERS: ADMIT Internal Medicine Adolescent Medicine; ATTEND Internal Medicine Adolescent Medicine

== ENCOUNTER → 2018-11-11 10:40 | Outpatient (POV) | payer MEDICARE, MEDICAID, SELFPAY ==
[2018-11-11 10:54] VITALS: BP 107/73; PULSE 97; RESP 18; O2SAT 98; BMI 17.8
--- NOTE | 2018-11-11 10:54 | P.PCN_ITS ---
- Procedure Date: 11/11/18 Time: 10:52 Anesthesiologist:: Jackie Antonio APRN Complications:: None Pre-procedure Diagnosis:: Degenerative disc disease lumbar spine with lumbar radiculopathy Post-procedure Diagnosis:: Same Indications for Procedure:: Patient is a pleasant 63-year-old white female who presents today for intrathecal pain pump reprogram. Patient rates her pain today a 5 out of 10. Patient states it is doing better however she would like some slight increase in her intrathecal pain pump. She denies any side effects she is currently on a periodic dose of 0.055 mg every 2 hours for total daily dose of 0.66 mg/day Physical Exam General: Alert and oriented x3, no acute distress, pleasant and cooperative, on O2 Lungs: Resps E/U, Symmetrical chest expansion, Eyes: PERRL Musculoskeletal: Flexion and extension of lumbar spine somewhat guarded secondary to pain, deep tendon reflexes normal, strength in upper and lower extremities [5/5], [abnormal gait noted] Neurological: speech clear, sheet metal shop helper equal, no gross sensory deficits Procedure Details:: Informed consent was obtained and the risk and benefits of the procedure were explained to the patient. The patient was taken to the procedure room where noninvasive monitoring was placed including noninvasive blood pressure cuff and pulse oximeter. Patient's pump was interrogated and reprogrammed. The infusion rate was changed to 0.035 mg every 1 hour for total daily dose of 0.84 mg/day of morphine. The patient tolerated the procedure well. Plan and Disposition:: We will follow-up with the patient and her next intrathecal pain pump refill and reprogram. She is been instructed to call the office if she has any issues prior to her next appointment. Dr. Chaney has reviewed this note and agrees with this plan of care. This note was dictated using voice recognition software and may contain errors or omissions
== END ==
PROVIDERS: PCP Internal Medicine Adolescent Medicine; Visit Provider Clinical Nurse Specialist Family Health
DX: M51.16 Intervertebral disc disorders with radiculopathy, lumbar region (principal)
CPT/HCPCS: 62368; 99213

== ENCOUNTER → 2018-12-03 15:32 | Outpatient (CLI) | payer MEDICARE, MEDICAID, SELFPAY ==
--- NOTE | 2018-12-03 15:37 | XR_ITS ---
XR chest 2V HISTORY: ITS.REASON: EMPHYSEMA,HEMOPTYSIS ORDERING PHYSICIAN: Neil Tony MD PATIENT AGE: 63 years COMPARISON: 09/03/2018 FINDINGS: Unremarkable cardiovascular structures. COPD with chronic coarsening of the bronchovascular markings. No lobar consolidation or collapse. There is hyperinflation with chronic coarsening of the bronchovascular markings. No acute bony findings. IMPRESSION: COPD with chronic changes, no change with no acute finding
== END ==
PROVIDERS: PCP Internal Medicine Adolescent Medicine; Visit Provider Internal Medicine Adolescent Medicine
DX: J43.1 Panlobular emphysema (principal); R04.2 Hemoptysis
CPT/HCPCS: 71046

== ENCOUNTER → 2019-03-03 13:47 | Outpatient (POV) | payer MEDICARE, MEDICAID, SELFPAY | PROVIDERS: Visit Provider Dermatology | DX: Z00.00 Encounter for general adult medical examination without abnormal findings (principal) ==

== ENCOUNTER → 2019-04-14 14:48 | Outpatient (POV) | payer MEDICARE, MEDICAID, SELFPAY | PROVIDERS: Visit Provider Dermatology | DX: Z00.00 Encounter for general adult medical examination without abnormal findings (principal) ==

== ENCOUNTER → 2019-05-04 16:46 | Outpatient (CLI) | payer MEDICARE, MEDICAID, SELFPAY ==
[2019-05-04 17:20] LABS: Basophils # 0.1 K/mm3 (0-0.2); Basophils % 0.8 % (0.1-2.0); Eosinophils # 0.2 K/mm3 (0.0-0.4); Eosinophils % 3.1 % (0.1-12.0); Hematocrit 44.3 % (37.0-47.0); Hemoglobin 13.6 g/dL (12.2-16.2); Lymphocytes # 2.4 K/mm3 (0.7-4.5); Lymphocytes % 33.6 % (10-50); Mean Corpuscular HGB Conc 30.7 g/dL (31.8-35.4); Mean Corpuscular Hemoglobin 29.3 pg (27.0-31.2); Mean Corpuscular Volume 95.3 fl (81-99); Mean Platelet Volume 6.7 fl (7.4-10.4); Monocytes # 0.6 K/mm3 (0.1-1.0); Monocytes % 8.1 % (1.7-9.3); Neutrophils # 3.9 K/mm3 (1.8-7.8); Neutrophils % 54.4 % (37.0-80.0); Platelet Count 410 K/mm3 (142-424); Red Blood Count 4.65 M/mm3 (4.20-5.40); White Blood Count 7.1 K/mm3 (4.8-10.8)
[2019-05-04 18:42] LABS: Erythrocyte Sedimentation Rate 16 mm/hr (0-30)
[2019-05-04 19:03] LABS: Alanine Aminotransferase 12 U/L (12-78); Albumin Level 3.2 gm/dL (3.4-5.0); Albumin/Globulin Ratio 0.8 (1.1-1.8); Alkaline Phosphatase 69 U/L (46-116); Aspartate Amino Transferase 14 U/L (15-37); Bilirubin,Total 0.2 mg/dL (0.2-1.0); Blood Urea Nitrogen 12 mg/dL (7-18); Calcium 9.3 mg/dL (8.5-10.1); Carbon Dioxide 31 mmol/L (21.0-32.0); Chloride 101 mmol/L (98-107); Creatinine,Serum 0.56 mg/dL (0.55-1.02); Estimated Glomerular Filt Rate 110 ml/min (>60); GFR (African American) 133 ML/MIN (>60); Globulin 4.2 gm/dl (1.3-3.2); Glucose 87 mg/dL (74-106); Sodium 139 mmol/L (136-145); Total Protein,Serum 7.4 gm/dL (6.4-8.2)
[2019-05-06 15:10] LABS: Albumin 3.3 g/dL (2.9-4.4); Alpha-1-Globulin 0.3 g/dL (0.0-0.4); Alpha-2-Globulin 0.9 g/dL (0.4-1.0); Gamma Globulin 1.5 g/dL (0.4-1.8); Protein, Total 7.1 g/dL (6.0-8.5)
== END ==
PROVIDERS: Visit Provider Internal Medicine Adolescent Medicine
DX: G60.0 Hereditary motor and sensory neuropathy (principal); L30.9 Dermatitis, unspecified
CPT/HCPCS: 36415; 80053; 84155; 84165; 85025; 85651

== ENCOUNTER → 2019-05-18 13:42 | Outpatient (POV) | payer MEDICARE, MEDICAID, SELFPAY ==
[2019-05-18 14:08] VITALS: BP 83/55; PULSE 75; RESP 18; O2SAT 98; BMI 23.6
--- NOTE | 2019-05-19 08:36 | [facility].PMPROC ---
- Procedure Date: 05/18/19 Time: 14:00 Anesthesiologist:: Jackie Antonio APRN Complications:: None Pre-procedure Diagnosis:: Degenerative disc disease lumbar spine with lumbar radiculopathy Post-procedure Diagnosis:: Same Indications for Procedure:: Patient is a 63-year-old white female who presents today for intrathecal pain pump adjustment. She rates her pain today an 8 out of 10 which is better than her typical pain score of a 9 out of 10. Patient has a periodic flow going to 2 hours. We will increase her today. Patient denies side effects or medication overall she is done well with her intrathecal pain pump. [facility] #[id number] reviewed and appropriate. Physical Exam General: Alert and oriented x3, no acute distress, pleasant and cooperative, [on room air] Lungs: Resps E/U, Symmetrical chest expansion, Eyes: PERRL Musculoskeletal: Flexion and extension of lumbar spine somewhat guarded secondary to pain, deep tendon reflexes normal, strength in upper and lower extremities [5/5], [abnormal gait noted] Neurological: speech clear, bb shot packer equal, no gross sensory deficits Procedure Details:: Informed consent was obtained and the risk and benefits of the procedure were explained to the patient. The patient was taken to the procedure room where noninvasive monitoring was placed including noninvasive blood pressure cuff and pulse oximeter. Patient's pump was interrogated and reprogrammed. The infusion rate was increased to 0.2 mg every 2 hours for total daily dose of 1.44 mg a day. The patient tolerated the procedure well. Plan and Disposition:: We will follow-up with the patient 1 month reassess her symptoms at that time she is been instructed to call the office if she has any issues prior to her next appointment. Dr. Chaney has reviewed this note and agrees with this plan of care. This note was dictated using voice recognition software and may contain errors or omissions
--- NOTE | 2019-05-19 08:40 | P.PCN_ITS ---
- Procedure Date: 05/18/19 Time: 14:00 Anesthesiologist:: Jackie Antonio APRN Complications:: None Pre-procedure Diagnosis:: Degenerative disc disease lumbar spine with lumbar radiculopathy Post-procedure Diagnosis:: Same Indications for Procedure:: Patient is a 63-year-old white female who presents today for intrathecal pain pump adjustment. She rates her pain today an 8 out of 10 which is better than her typical pain score of a 9 out of 10. Patient has a periodic flow going to 2 hours. We will increase her today. Patient denies side effects or medication overall she is done well with her intrathecal pain pump. [facility] #[id number] reviewed and appropriate. Physical Exam General: Alert and oriented x3, no acute distress, pleasant and cooperative, [on room air] Lungs: Resps E/U, Symmetrical chest expansion, Eyes: PERRL Musculoskeletal: Flexion and extension of lumbar spine somewhat guarded secondary to pain, deep tendon reflexes normal, strength in upper and lower extremities [5/5], [abnormal gait noted] Neurological: speech clear, sonar technician equal, no gross sensory deficits Procedure Details:: Informed consent was obtained and the risk and benefits of the procedure were explained to the patient. The patient was taken to the procedure room where noninvasive monitoring was placed including noninvasive blood pressure cuff and pulse oximeter. Patient's pump was interrogated and reprogrammed. The infusion rate was increased to 0.2 mg every 2 hours for total daily dose of 1.44 mg a day. The patient tolerated the procedure well. Plan and Disposition:: We will follow-up with the patient 1 month reassess her symptoms at that time she is been instructed to call the office if she has any issues prior to her next appointment. Dr. Chaney has reviewed this note and agrees with this plan of care. This note was dictated using voice recognition software and may contain errors or omissions
--- NOTE | 2019-06-01 11:47 | PC.NURSE ---
GABAPENTIN 300MG 5X A DAY WITH 2 REFILLS FAXED TO [facility] PER PROVIDER ORDER
== END ==
PROVIDERS: PCP Internal Medicine Adolescent Medicine; Visit Provider Clinical Nurse Specialist Family Health
DX: M51.16 Intervertebral disc disorders with radiculopathy, lumbar region (principal)
CPT/HCPCS: 62368

== ENCOUNTER 2019-06-10 15:40 | Observation (INO) ==
--- NOTE | 2019-06-10 16:22 | Pharmacy Consult Notes ---
[facility] Pharmacy VTE Monitoring - Patient Demographics Admission date: 06/10/19 Report Date: 06/10/19 Time: 16:22 Allergies/Adverse Reactions: Patient Allergies morphine Allergy (Severe, Verified 09/23/18 13:30) CHEST PAIN iodine Allergy (Unknown, Verified 09/23/18 13:30) I-HIVES Penicillins Allergy (Unknown, Verified 09/23/18 13:30) I-HIVES - VTE Risk Clinical Trial Participant: No - Prophylaxis VTE Prophylaxis Ordered?: Yes Types of VTE Prophylaxis: TEDS Knee High
[2019-06-10 17:06] LABS: Basophils # 0.1 K/mm3 (0-0.2); Basophils % 0.4 % (0.1-2.0); Eosinophils % 0.1 % (0.1-12.0); Hematocrit 54.1 % (37.0-47.0); Hemoglobin 16.3 g/dL (12.2-16.2); Lymphocytes # 1.9 K/mm3 (0.7-4.5); Lymphocytes % 15.4 % (10-50); Mean Corpuscular HGB Conc 30.1 g/dL (31.8-35.4); Mean Corpuscular Volume 95.6 fl (81-99); Mean Platelet Volume 6.9 fl (7.4-10.4); Monocytes # 0.5 K/mm3 (0.1-1.0); Monocytes % 3.9 % (1.7-9.3); Neutrophils # 9.7 K/mm3 (1.8-7.8); Neutrophils % 80.1 % (37.0-80.0); Platelet Count 663 K/mm3 (142-424); Red Blood Count 5.66 M/mm3 (4.20-5.40); Red Cell Distribution Width 14.3 % (11.5-17.5); White Blood Count 12.1 K/mm3 (4.8-10.8)
[2019-06-10 17:12] LABS: Anion Gap 14.5 mEq/L (5-15); Calcium 10.1 mg/dL (8.5-10.1)
--- NOTE | 2019-06-10 21:07 | History & Physical Report ---
*Admission Date: 06/10/19 *Chief complaint: Cough/soa/fatigue *History of present illness: 63-year-old white female with Vrlsaaw-Hslqs-Whbxv syndrome, wheelchair-bound status and COPD that is nebulizer and oxygen requiring. She has frequent exacerbations and unfortunately continues to smoke. She was in the emergency department 2 days ago, diagnosed with lingular pneumonia and placed on doxycycline and treated as an outpatient. She's failed to improve, and came to the office where she was found to be tachycardic, dyspneic with crackles in both lower lung montiel. She was admitted to the hospital for broad-spectrum IV antibiotic given her failure of outpatient therapy. [facility] History I have reviewed the patient's past medical history: Yes Medical History: Reports:: Chronic Obstructive Pulmonary Disease (COPD), Depression, Gastroesophageal Reflux Disease(GERD), Hyperlipidemia, Hypertension Denies:: Cancer, Diabetes Mellitus Type 1, Diabetes Mellitus Type 2, Internal Pacemaker, MRSA, Seizures *Have you ever received a pneumonia vaccine?: Yes *Have you received a flu vaccine this season?: No Other Medical History: Reports: Arthritis, Hypothyroidism, Other (ENEIDA, Home 02/ Gcggydi-Gosrb-Xipch disease, Implanted pain pump). Denies: Blood Transfusion Reaction Other Surgeries: Yes: Tubal Ligation, Other (PAIN PUMP IMPLANT). No: Pacemaker Amputation: No Fractures: No - *Social History Smoking Status: Former smoker Tobacco Type: cigarettes Alcohol Intake: never Alcohol Intake Frequency:: other *Occupational Status:: retired Housing: apartment Household Members: family *Travel in the last 8 weeks: None - Psychiatric History Pschychiatric History:: Reports:: Depression Family Hx:: Diabetes, Heart Attack, Hypertension Review of Systems - Review of Systems Review of systems:: pertinent systems reviewed and negative unless documented below - Constitutional Reports anorexia, Reports fatigue, Reports fever(s), Reports lack of energy Meds Home Medications Medication Instructions Recorded Confirmed Type Albuterol Sulfate [Albuterol HFA 2 puffs IH Q4HP PRN 09/04/18 06/10/19 History Inhaler] Alendronate 35mg Tablet 70 mg PO WEEKLY 09/04/18 06/10/19 History Fluticasone Furoate [Flonase 2 spray NS DAILY 09/04/18 06/10/19 History Sensimist] Fluticasone/Salmeterol [Advair 1 puffs IH BID 09/04/18 06/10/19 History 100/50mcg diskus] Gabapentin [Neurontin 300mg 300 mg PO 5XDAY 09/04/18 06/10/19 History capsule] Glycopyrrolate/Formoterol Fum 2 puffs IH BID 09/04/18 06/10/19 History [Bevespi Aerosphere Inhaler] Linaclotide [Linzess] 145 mcg PO DAILY 09/04/18 06/10/19 History Lisinopril [Lisinopril 40mg Tablet] 40 mg PO DAILY 09/04/18 06/10/19 History Montelukast Sodium [Singulair 10mg 10 mg PO HS 09/04/18 06/10/19 History tablet] Ondansetron [Zofran 4mg ODT] 4 mg SL Q8HP PRN tab.rapdis 09/04/18 06/10/19 Rx Pantoprazole Sodium [Protonix 40mg 40 mg PO DAILY 09/04/18 06/10/19 History tablet] SUMAtriptan succinate [Sumatriptan 100 mg PO NEEDED PRN 09/04/18 06/10/19 History Succinate] Sertraline HCl [Zoloft 100mg 200 mg PO DAILY 09/04/18 06/10/19 History tablet] Tamsulosin HCl [Flomax 0.4mg 0.4 mg PO HS 09/04/18 06/10/19 History capsule] Tizanidine HCl [Zanaflex 4mg 4 mg PO TIDP PRN tablet 09/04/18 06/10/19 Rx tablet] Tramadol HCl [Ultram 50mg 50 mg PO QIDP PRN tablet 09/04/18 06/10/19 Rx tablet] Trazodone HCl [Desyrel 50mg tablet] 50 mg PO HSP PRN tablet 09/04/18 06/10/19 Rx raNITIdine HCl [Ranitidine HCl] 150 mg PO BID 09/04/18 06/10/19 History Codeine Phosphate/Guaifenesin 120 ml PO QID 06/10/19 06/10/19 History [Codeine-Guaifen 10-100 mg/5 ml] Doxycycline Hyclate [Doxycycline 100 mg PO Q12 06/10/19 06/10/19 History 100mg Capsule] Allergies Allergy/AdvReac Type Severity Reaction Status Date / Time iodine Allergy Unknown I-HIVES Verified 09/23/18 13:30 Penicillins Allergy Unknown I-HIVES Verified 09/23/18 13:30 Exam Vital signs and Labs for Last 24 Hours: Temp Pulse Resp BP Pulse Ox 97.6 F 106 H 21 168/110 H 96 06/10/19 19:32 06/10/19 20:14 06/10/19 19:32 06/10/19 20:14 06/10/19 20:01 Laboratory Results - last 24 hr 06/10/19 16:43: Mycoplasma pneumon IgM Non-reactive 06/10/19 16:43: WBC 12.1 H D, RBC 5.66 H, Hgb 16.3 H, Hct 54.1 H, MCV 95.6, MCH 28.7, MCHC 30.1 L, RDW 14.3, Plt Count 663 H, MPV 6.9 L, Neut % (Auto) 80.1 H, Lymph % (Auto) 15.4, Evangeline % (Auto) 3.9, Eos % (Auto) 0.1, Baso % (Auto) 0.4, Neut # (Auto) 9.7 H, Lymph # (Auto) 1.9, Evangeline # (Auto) 0.5, Eos # (Auto) 0.0, Baso # (Auto) 0.1 06/10/19 16:43: Sodium 139, Potassium 3.5, Chloride 99, Carbon Dioxide 29, Anion Gap 14.5, BUN 14 D, Creatinine 0.69, Estimated Creat Clear 49, Estimated GFR 86, Est GFR ( Amer) 105, Glucose 86, Calcium 10.1 06/10/19 18:35: Influenza Type A Ag Negative, Influenza Type B Ag Negative I & O for Last 24 hours: Intake & Output 06/08/19 06/09/19 06/10/19 06/11/19 11:59 11:59 11:59 11:59 Intake Total 549 / 549 Balance 549 / 549 Weight 116 lb 9 oz Microbiology Reports for the Last 24 Hours: Microbiology 06/10/19 18:30 Sputum - Expectorated Sputum Gram Stain - Final Narrative: White female who appears her stated age in a power chair. Obviously dyspneic. Vital signs noted above. Appears malnourished. Oropharynx dry but clear. Lungs have rhonchi with expiratory crackles in both bases, expiratory wheezes with forced expiration no inspiratory wheezing. Heart rate regular. Abdomen scaphoid and soft. Upper extremities unremarkable except for some diffuse rash and excoriations. Lower extremities with malformations, muscular and bony atrophy consistent with prior examinations and her known Qiznvib-Xbohf-Mfkmf disease. Lower extremities are weak and atrophied previously noted. Upper extremities have normal strength and reflexes. Cranial nerves are intact. Assessment and Plan (1) COPD exacerbation Current visit: No Status: Acute Category: Medical Code(s): J44.1 - Chronic obstructive pulmonary disease with (acute) exacerbation (2) Community acquired pneumonia Current visit: No Status: Resolved Category: Medical Code(s): J18.9 - Pneumonia, unspecified organism - Assessment and plan all Dx Assessment and Plan for all problems:: Plan will be to admit to hospital given failed outpatient therapy. Broad- spectrum IV antibiotics. Continue home medications. Low-dose IV fluids. Continue oxygen monitoring. No steroids at this point given minimal wheezing and fairly low evidence of significant inflammation.
--- NOTE | 2019-06-10 23:32 | Discharge Summary ---
General - General Admission date:: 06/10/19 Discharge date: 06/11/19 HPI HPI: 63-year-old white female with Hqnhsee-Rgggg-Gnmnt syndrome, wheelchair-bound status and COPD that is nebulizer and oxygen requiring. She has frequent exac erbations and unfortunately continues to smoke. She was in the emergency department 2 days ago, diagnosed with lingular pneumonia and placed on doxycycline and treated as an outpatient. She's failed to improve, and came to the office where she was found to be tachycardic, dyspneic with crackles in both lower lung montiel. She was admitted to the hospital for broad-spectrum IV antibiotic given her failure of outpatient therapy. Hospital Course Hospital Course: Admitted due to respiratory distress and concern for COPD laceration in a critically ill patient. Responded well to antibiotics and breathing treatments. Patient returned back to baseline with baseline oxygen requirements. Tolerating p.o. intake and able to transition oral therapy. Plan to continue p.o. antibiotics for total of 7 days of therapy. Patient remained hemodynamically stable however did have some increases in her blood pressure prior to receiving blood pressure medications each morning. Was asymptomatic during these episodes. We will plan to adjust meds in the outpatient setting. Denies chest pain, worsening shortness of breath, diarrhea. Does have some mild GI upset. Afebrile. Medically stable for discharge home. Continue home oxygen. Continue home inhalers. Close follow-up next week to assess response to antibiotics Objective Vital signs: Temp Pulse Resp BP Pulse Ox 97.6 F 119 H 21 168/110 H 96 06/10/19 19:32 06/10/19 23:23 06/10/19 19:32 06/10/19 20:14 06/10/19 20:01 Narrative: White female who appears older than stated age in bed on exam, at her baseline this morning Appears malnourished. Oropharynx moist Lungs have rhonchi with expiratory crackles in both bases, prolonged expiratory phase, poor air movement bilaterally, minimal expiratory wheeze Heart rate regular, no murmur appreciated. Adomen scaphoid and soft. Upper extremities unremarkable except for some diffuse rash and excoriations. Lower extremities with malformations, muscular and bony atrophy consistent with prior examinations and her known Kidtezq-Ujjzf-Jnvfy disease. Lower extremities are weak and atrophied previously noted. Upper extremities have normal strength and reflexes. Cranial nerves are intact. Results Labs on day of discharge: Labs from last 24 hours 06/10/19 06/10/19 06/10/19 22:00 18:35 16:43 WBC RBC Hgb Hct MCV MCH MCHC RDW Plt Count MPV Neut % (Auto) Lymph % (Auto) [place] % (Auto) Eos % (Auto) Baso % (Auto) Neut # (Auto) Lymph # (Auto) [place] # (Auto) Eos # (Auto) Baso # (Auto) Sodium 139 Potassium 3.5 Chloride 99 Carbon Dioxide 29 Anion Gap 14.5 BUN 14 D Creatinine 0.69 Estimated Creat Clear 49 Estimated GFR 86 Est GFR ( Amer) 105 Glucose 86 Calcium 10.1 Random Tobramycin 5.7 Influenza Type A Ag Negative Influenza Type B Ag Negative Mycoplasma pneumon IgM 06/10/19 06/10/19 16:43 16:43 WBC 12.1 H D RBC 5.66 H Hgb 16.3 H Hct 54.1 H MCV 95.6 MCH 28.7 MCHC 30.1 L RDW 14.3 Plt Count 663 H MPV 6.9 L Neut % (Auto) 80.1 H Lymph % (Auto) 15.4 [place] % (Auto) 3.9 Eos % (Auto) 0.1 Baso % (Auto) 0.4 Neut # (Auto) 9.7 H Lymph # (Auto) 1.9 [place] # (Auto) 0.5 Eos # (Auto) 0.0 Baso # (Auto) 0.1 Sodium Potassium Chloride Carbon Dioxide Anion Gap BUN Creatinine Estimated Creat Clear Estimated GFR Est GFR ( Amer) Glucose Calcium Random Tobramycin Influenza Type A Ag Influenza Type B Ag Mycoplasma pneumon IgM Non-reactive DS: Diagnosis - Discharge Diagnosis (1) COPD exacerbation Status: Acute (2) Community acquired pneumonia Status: Resolved Discharge Plan - Patient Discharge Instructions ACTIVITY: Ambulate as tolerated DIET: continue same diet Patient Instructions: Pneumonia-Adult, Chronic Obstructive Pulmonary Disease, DI for Pneumonia -- Adult, How to Prevent Falls - Follow up Plan Follow up with: Elvira Carpenter APRN [Nurse Practitioner] - Disposition: Home, Self-Custodial Medications: Home Medications Medication Instructions Recorded Confirmed Type Albuterol Sulfate [Albuterol HFA 2 puffs IH Q4HP PRN 09/04/18 06/10/19 History Inhaler] Alendronate 35mg Tablet 70 mg PO WEEKLY 09/04/18 06/10/19 History Fluticasone Furoate [Flonase 2 spray NS DAILY 09/04/18 06/10/19 History Sensimist] Fluticasone/Salmeterol [Advair 1 puffs IH BID 09/04/18 06/10/19 History 100/50mcg diskus] Gabapentin [Neurontin 300mg 300 mg PO 5XDAY 09/04/18 06/10/19 History capsule] Glycopyrrolate/Formoterol Fum 2 puffs IH BID 09/04/18 06/10/19 History [Bevespi Aerosphere Inhaler] Linaclotide [Linzess] 145 mcg PO DAILY 09/04/18 06/10/19 History Lisinopril [Lisinopril 40mg Tablet] 40 mg PO DAILY 09/04/18 06/10/19 History Ondansetron [Zofran 4mg ODT] 4 mg SL Q8HP PRN tab.rapdis 09/04/18 06/10/19 Rx Pantoprazole Sodium [Protonix 40mg 40 mg PO DAILY 09/04/18 06/10/19 History tablet] SUMAtriptan succinate [Sumatriptan 100 mg PO NEEDED PRN 09/04/18 06/10/19 History Succinate] Sertraline HCl [Zoloft 100mg 200 mg PO DAILY 09/04/18 06/10/19 History tablet] Tamsulosin HCl [Flomax 0.4mg 0.4 mg PO HS 09/04/18 06/10/19 History capsule] Tizanidine HCl [Zanaflex 4mg 4 mg PO TIDP PRN tablet 09/04/18 06/10/19 Rx tablet] Tramadol HCl [Ultram 50mg 50 mg PO QIDP PRN tablet 09/04/18 06/10/19 Rx tablet] Trazodone HCl [Desyrel 50mg tablet] 50 mg PO HSP PRN tablet 09/04/18 06/10/19 Rx raNITIdine HCl [Ranitidine HCl] 150 mg PO BID 09/04/18 06/10/19 History Codeine Phosphate/Guaifenesin 5 ml PO QID PRN 06/10/19 06/11/19 History [Codeine-Guaifen 10-100 mg/5 ml] Doxycycline Hyclate [Doxycycline 100 mg PO Q12 06/10/19 06/10/19 History 100mg Capsule] Furosemide [Furosemide 20mg Tab] 20 mg PO DAILY 06/11/19 06/11/19 History levoFLOXacin [Levaquin 750mg 750 mg PO DAILY #5 tab 06/12/19 Rx tablet] Prescriptions/Medication Reconciliation: New Montelukast Sodium [Singulair 10mg tablet] 10 mg PO HS tablet Continued Ondansetron [Zofran 4mg ODT] 4 mg SL Q8HP PRN tab.rapdis PRN Reason: Nausea Tizanidine HCl [Zanaflex 4mg tablet] 4 mg PO TIDP PRN tablet PRN Reason: MUSCLE SPASM Tramadol HCl [Ultram 50mg tablet] 50 mg PO QIDP PRN tablet PRN Reason: Moderate Pain Trazodone HCl [Desyrel 50mg tablet] 50 mg PO HSP PRN tablet PRN Reason: Sleep Tamsulosin HCl [Flomax 0.4mg capsule] 0.4 mg PO HS Sertraline HCl [Zoloft 100mg tablet] 200 mg PO DAILY Pantoprazole Sodium [Protonix 40mg tablet] 40 mg PO DAILY Fluticasone/Salmeterol [Advair 100/50mcg diskus] 1 puffs IH BID Fluticasone Furoate [Flonase Sensimist] 2 spray NS DAILY Glycopyrrolate/Formoterol Fum [Bevespi Aerosphere Inhaler] 2 puffs IH BID Linaclotide [Linzess] 145 mcg PO DAILY SUMAtriptan succinate [Sumatriptan Succinate] 100 mg PO NEEDED PRN PRN Reason: Migraine Headache raNITIdine HCl [Ranitidine HCl] 150 mg PO BID Lisinopril [Lisinopril 40mg Tablet] 40 mg PO DAILY Codeine Phosphate/Guaifenesin [Codeine-Guaifen 10-100 mg/5 ml] 5 ml PO QID PRN PRN Reason: Cough Furosemide [Furosemide 20mg Tab] 20 mg PO DAILY Gabapentin [Neurontin 300mg capsule] 300 mg PO 5XDAY Albuterol Sulfate [Albuterol HFA Inhaler] 2 puffs IH Q4HP PRN PRN Reason: Shortness Of Breath Or Wheezing Alendronate 35mg Tablet 70 mg PO WEEKLY Discontinued Doxycycline Hyclate [Doxycycline 100mg Capsule] 100 mg PO Q12 - Problem Reconciliation Problems Reviewed?: Yes
--- NOTE | 2019-06-11 08:49 | Electrocardiograph Report ---
APPROVED REPORT Exam: Resting ECG HR:116 bpm ECG Measurements Heart Rate 116 AXES OR 146 P 71 QRSd 72 QRS 40 QT 304 T50 QTc 422 <Conclusion> Sinus tachycardia Left atrial abnormality Nonspecific ST abnormality Abnormal ECG Electronically signed by : Neil Tony, 06/11/2019 08:49:18
--- NOTE | 2019-06-11 08:50 | Pharmacy Consult Notes ---
- Pharmacy Consult Date: 06/11/19 Time: 08:46 Referring provider: DR. FERRO Reason for Consult:: TOBRAMYCIN DOSING AND LEVELS Allergies and ADEs:: Allergies Allergy/AdvReac Type Severity Reaction Status Date / Time iodine Allergy Unknown I-HIVES Verified 09/23/18 13:30 Penicillins Allergy Unknown I-HIVES Verified 09/23/18 13:30 Home Medications:: Home Medications Medication Instructions Recorded Confirmed Type Albuterol Sulfate [Albuterol HFA 2 puffs IH Q4HP PRN 09/04/18 06/10/19 History Inhaler] Alendronate 35mg Tablet 70 mg PO WEEKLY 09/04/18 06/10/19 History Fluticasone Furoate [Flonase 2 spray NS DAILY 09/04/18 06/10/19 History Sensimist] Fluticasone/Salmeterol [Advair 1 puffs IH BID 09/04/18 06/10/19 History 100/50mcg diskus] Gabapentin [Neurontin 300mg 300 mg PO 5XDAY 09/04/18 06/10/19 History capsule] Glycopyrrolate/Formoterol Fum 2 puffs IH BID 09/04/18 06/10/19 History [Bevespi Aerosphere Inhaler] Linaclotide [Linzess] 145 mcg PO DAILY 09/04/18 06/10/19 History Lisinopril [Lisinopril 40mg Tablet] 40 mg PO DAILY 09/04/18 06/10/19 History Montelukast Sodium [Singulair 10mg 10 mg PO HS 09/04/18 06/10/19 History tablet] Ondansetron [Zofran 4mg ODT] 4 mg SL Q8HP PRN tab.rapdis 09/04/18 06/10/19 Rx Pantoprazole Sodium [Protonix 40mg 40 mg PO DAILY 09/04/18 06/10/19 History tablet] SUMAtriptan succinate [Sumatriptan 100 mg PO NEEDED PRN 09/04/18 06/10/19 History Succinate] Sertraline HCl [Zoloft 100mg 200 mg PO DAILY 09/04/18 06/10/19 History tablet] Tamsulosin HCl [Flomax 0.4mg 0.4 mg PO HS 09/04/18 06/10/19 History capsule] Tizanidine HCl [Zanaflex 4mg 4 mg PO TIDP PRN tablet 09/04/18 06/10/19 Rx tablet] Tramadol HCl [Ultram 50mg 50 mg PO QIDP PRN tablet 09/04/18 06/10/19 Rx tablet] Trazodone HCl [Desyrel 50mg tablet] 50 mg PO HSP PRN tablet 09/04/18 06/10/19 Rx raNITIdine HCl [Ranitidine HCl] 150 mg PO BID 09/04/18 06/10/19 History Codeine Phosphate/Guaifenesin 120 ml PO QID 06/10/19 06/10/19 History [Codeine-Guaifen 10-100 mg/5 ml] Doxycycline Hyclate [Doxycycline 100 mg PO Q12 06/10/19 06/10/19 History 100mg Capsule] Height: 1.52 m Weight: 53.184 kg Laboratory Results:: Laboratory Results - last 24 hr 06/10/19 16:43: Mycoplasma pneumon IgM Non-reactive 06/10/19 16:43: WBC 12.1 H D, RBC 5.66 H, Hgb 16.3 H, Hct 54.1 H, MCV 95.6, MCH 28.7, MCHC 30.1 L, RDW 14.3, Plt Count 663 H, MPV 6.9 L, Neut % (Auto) 80.1 H, Lymph % (Auto) 15.4, [place] % (Auto) 3.9, Eos % (Auto) 0.1, Baso % (Auto) 0.4, Neut # (Auto) 9.7 H, Lymph # (Auto) 1.9, [place] # (Auto) 0.5, Eos # (Auto) 0.0, Baso # (Auto) 0.1 06/10/19 16:43: Sodium 139, Potassium 3.5, Chloride 99, Carbon Dioxide 29, Anion Gap 14.5, BUN 14 D, Creatinine 0.69, Estimated Creat Clear 49, Estimated GFR 86, Est GFR ( Amer) 105, Glucose 86, Calcium 10.1 06/10/19 18:35: Influenza Type A Ag Negative, Influenza Type B Ag Negative 06/10/19 22:00: Random Tobramycin 5.7 06/11/19 06:02: Random Tobramycin 1.2 Medical History: Reports:: Chronic Obstructive Pulmonary Disease (COPD), Depression, Gastroesophageal Reflux Disease(GERD), Hyperlipidemia, Hypertension Denies:: Cancer, Diabetes Mellitus Type 1, Diabetes Mellitus Type 2, Internal Pacemaker, MRSA, Seizures Assessment and Plan (1) COPD exacerbation Current visit: No Status: Acute Category: Medical Code(s): J44.1 - Chronic obstructive pulmonary disease with (acute) exacerbation (2) Community acquired pneumonia Current visit: No Status: Resolved Category: Medical Code(s): J18.9 - Pneumonia, unspecified organism - Assessment and plan all Dx Assessment and Plan for all problems:: BASED ON PATIENT FACTORS, RECOMMEND TOBRAMYCIN 260 MG IV Q24H. 4-HOUR POST INFUSION LEVEL: 5.7 MCG/ML CALCULATED PEAK: 10.23 MCG/ML 12-HOUR POST INFUSION LEVEL: 1.2 MCG/ML CALCULATED TROUGH: 0.12 MCG/ML BASED ON LEVELS AND PATIENT FACTORS THIS MORNING, RECOMMEND INCREASING DOSE TO TOBRAMYCIN 320 MG IV Q24H (7 MG/KG/DBW). WILL OBTAIN 12-HOUR POST-INFUSION LEVEL TOMORROW MORNING. PHARMACY WILL FOLLOW DAILY AND ADJUST APPROPRIATE.
--- NOTE | 2019-06-11 17:49 | Progress Note ---
Internal Medicine - PN: Subj *Date: 06/11/19 *Time: 08:30 Interval history: Patient remained stable overnight. Continues to require baseline home oxygen needs. Denies vomiting. Does complain of some nausea. No diarrhea, chest pain, altered mental status. States this morning she feels slightly better than yesterday but still feels very baseline. Afebrile. Exam Vital signs and Labs for Last 24 Hours: Temp Pulse Resp BP Pulse Ox 97.9 F 95 H 17 163/104 H 95 06/11/19 16:00 06/11/19 16:00 06/11/19 16:00 06/11/19 16:00 06/11/19 16:00 Laboratory Results - last 24 hr 06/10/19 18:35: Influenza Type A Ag Negative, Influenza Type B Ag Negative 06/10/19 22:00: Random Tobramycin 5.7 06/11/19 06:02: Random Tobramycin 1.2 I & O for Last 24 hours: Intake & Output 06/08/19 06/09/19 06/10/19 06/11/19 23:59 23:59 23:59 23:59 Intake Total 699 / 699 1397 / 1397 Output Total 200 / 200 600 / 600 Balance 499 / 499 797 / 797 Weight 52.872 kg 53.184 kg Microbiology Reports for the Last 24 Hours: Microbiology 06/10/19 18:30 Sputum - Expectorated Sputum Gram Stain - Final 06/10/19 18:30 Sputum - Expectorated Sputum Sputum Culture - Preliminary Narrative: White female who appears older than stated age in bed on exam Appears malnourished. Oropharynx moist Lungs have rhonchi with expiratory crackles in both bases, prolonged expiratory phase, poor air movement bilaterally, minimal expiratory wheeze Heart rate regular, no murmur appreciated. Adomen scaphoid and soft. Upper extremities unremarkable except for some diffuse rash and excoriations. Lower extremities with malformations, muscular and bony atrophy consistent with prior examinations and her known Dpxaslz-Uonwv-Rbrfk disease. Lower extremities are weak and atrophied previously noted. Upper extremities have normal strength and reflexes. Cranial nerves are intact. Assessment and Plan (1) COPD exacerbation Current visit: No Status: Acute Category: Medical Code(s): J44.1 - Chronic obstructive pulmonary disease with (acute) exacerbation (2) Community acquired pneumonia Current visit: No Status: Resolved Category: Medical Code(s): J18.9 - Pneumonia, unspecified organism - Assessment and plan all Dx Assessment and Plan for all problems:: We will transition oral therapy today, de-escalate broad-spectrum antibiotics. We will base treatment off most recent cultures and sensitivities. Continues to require inpatient management however given the patient is at baseline oxygen re quirement, tolerating p.o. intake, will plan for home tomorrow on oral therapy she is otherwise meeting criteria for discharge.
== END 2019-06-12 15:00 | disposition home or self-care (01) ==
LOC: 2ND
PROVIDERS: ADMIT Internal Medicine Adolescent Medicine; ATTEND Internal Medicine Adolescent Medicine
DX: J18.9 Pneumonia, unspecified organism; Z88.6 Allergy status to analgesic agent; Z79.51 Long term (current) use of inhaled steroids; Z88.0 Allergy status to penicillin; Z79.899 Other long term (current) drug therapy; Z99.81 Dependence on supplemental oxygen; R00.0 Tachycardia, unspecified; Z88.8 Allergy status to other drugs, medicaments and biological substances; G60.0 Hereditary motor and sensory neuropathy; I10 Essential (primary) hypertension; J44.1 Chronic obstructive pulmonary disease with (acute) exacerbation; Z99.3 Dependence on wheelchair
CPT/HCPCS: 36415; 71020; 71046; 72100; 80048; 80200; 85025; 86738; 87040; 87070; 87077; 87186; 87205; 87275; 87276; 93005; 94640; 94761; G0378; J1956

== ENCOUNTER → 2019-06-15 13:52 | Outpatient (POV) | payer MEDICARE, MEDICAID, SELFPAY ==
--- NOTE | 2019-06-16 08:41 | P.PCN_ITS ---
- Procedure Date: 06/15/19 Time: 14:30 Anesthesiologist:: Jackie Antonio APRN Complications:: None Pre-procedure Diagnosis:: Degenerative disc disease lumbar spine with lumbar radiculopathy Post-procedure Diagnosis:: Same Indications for Procedure:: Patient is a pleasant 63-year-old white female who presents today for intrathecal pain pump adjustment. Patient states she is had an increase in pain lately rating it a 9 out of 10. Patient states she is also had several falls. Patient has recently missed her refill appointment for her intrathecal pain pump. We will interrogate her today to see what her reservoir volume is. She denies side effects to any of her medication. Physical Exam General: Alert and oriented x3, no acute distress, pleasant and cooperative, on oxygen Lungs: Resps E/U, Symmetrical chest expansion, Eyes: PERRL Musculoskeletal: Flexion and extension of lumbar spine somewhat guarded secondary to pain, deep tendon reflexes normal, strength in upper and lower extremities [5/5], [abnormal gait noted] Neurological: speech clear, link trainer mechanic equal, no gross sensory deficits Procedure Details:: Informed consent was obtained and the risk and benefits of the procedure were explained to the patient. The patient was taken to the procedure room where noninvasive monitoring was placed including noninvasive blood pressure cuff and pulse oximeter. Patient's pump was interrogated and reprogrammed. The infusion rate was changed to 0.25 mg every 2 hours.. The patient tolerated the procedure well. However patient's reservoir is empty. We will give her a refill as soon as possible. Plan and Disposition:: I discussed with the patient the importance of keeping her appointments. We will also add bupivacaine to her next intrathecal pain pump refill. We will do morphine 10 mg per mill and bupivacaine 5 mg/mL Dr. Chaney has reviewed this note and agrees with this plan of care. This note was dictated using voice recognition software and may contain errors or omissions
== END ==
PROVIDERS: PCP Internal Medicine Adolescent Medicine; Visit Provider Clinical Nurse Specialist Family Health
DX: M51.16 Intervertebral disc disorders with radiculopathy, lumbar region (principal)
CPT/HCPCS: 62368

== ENCOUNTER → 2019-06-23 10:22 | Outpatient (POV) | payer MEDICARE, MEDICAID, SELFPAY ==
[2019-06-23 11:20] VITALS: BP 107/69; PULSE 87; RESP 18; O2SAT 96
--- NOTE | 2019-06-23 13:33 | [facility].PMPROC ---
- Procedure Date: 06/23/19 Time: 11:30 Anesthesiologist:: Jackie Antonio APRN Complications:: None Pre-procedure Diagnosis:: Degenerative disc disease lumbar spine with lumbar radiculopathy Post-procedure Diagnosis:: Same Indications for Procedure:: Patient is a pleasant 63-year-old white female patient was filled by Dr. Chaney at her last visit. She also had a intrathecal catheter dye study which was appropriate. She is started back on an infusion of 0.5 mg/day her pump was empty due to her missing her appointment on 04/01/2019. Patient states she does not need any changes made to her pump at this time rating her pain an 8 out of 10. Physical Exam General: Alert and oriented x3, no acute distress, pleasant and cooperative, on oxygen Lungs: Resps E/U, Symmetrical chest expansion, Eyes: PERRL Musculoskeletal: Flexion and extension of lumbar spine somewhat guarded secondary to pain, deep tendon reflexes normal, strength in upper and lower extremities [5/5], [abnormal gait noted] Neurological: speech clear, donkey doctor equal, no gross sensory deficits Procedure Details:: Informed consent was obtained and the risk and benefits of the procedure were explained to the patient. The patient was taken to the procedure room where noninvasive monitoring was placed including noninvasive blood pressure cuff and pulse oximeter. Patient's pump was interrogated and reprogrammed. The infusion rate was continued at 0.5 mg of morphine today. The patient tolerated the procedure well. Plan and Disposition:: We will see the patient back at her next intrathecal pain pump refill and reprogram. I encouraged her to keep her appointments. Patient's been instructed to call the office if she has any issues prior to her next appointment. Dr. Chaney has reviewed this note and agrees with this plan of care. This note was dictated using voice recognition software and may contain errors or omissions
== END ==
PROVIDERS: PCP Internal Medicine Adolescent Medicine; Visit Provider Clinical Nurse Specialist Family Health
DX: M51.16 Intervertebral disc disorders with radiculopathy, lumbar region (principal)
CPT/HCPCS: 99212

== ENCOUNTER 2019-08-29 17:12 | Inpatient (IN) ==
--- NOTE | 2019-08-29 18:41 | Emergency Department Note ---
[facility] [place] Clinical Impression: Shortness of breath Disposition: Still a Patient Condition on Discharge: Fair Referrals: Neil Tony MD [Primary Care Provider] - Time of Disposition: 18:46 Medical Decision Making - Michele Inquiry Pt receiving controlled substance: No Michele was queried for this patient: No Vital Signs: 08/29/19 17:20 08/29/19 17:42 08/29/19 18:41 Temperature 97.5 F L 97.5 F L Temperature Source Axillary Axillary Pulse Rate [Right Radial] 55 L 55 L 145 H Respiratory Rate 20 20 28 H Blood Pressure [Right Arm] 131/94 H 131/94 H Blood Pressure Mean [Right Arm] 106 106 Blood Pressure Source [Right Arm] Manual Cuff/ Palpation Manual Cuff/ Palpation Blood Pressure Position [Right Arm] Sitting Sitting 02 Sat by Pulse Oximetry 98 98 83 L Oxygen Delivery Method Nasal Cannula Nasal Cannula Nasal Cannula Oxygen Flow Rate (LPM) 2.5 2.5 2.5 08/29/19 18:44 Temperature 98.4 F Temperature Source Oral Pulse Rate [Right Radial] 63 Respiratory Rate 24 Blood Pressure [Right Arm] 143/98 H Blood Pressure Mean [Right Arm] 113 Blood Pressure Source [Right Arm] Automatic Cuff Blood Pressure Position [Right Arm] Sitting 02 Sat by Pulse Oximetry 92 L Oxygen Delivery Method Nasal Cannula Oxygen Flow Rate (LPM) 2 Orders (Tests/Meds): ED MEDICATIONS Generic Name Dose Route Start Last Admin Trade Name Freq PRN Reason Stop Dose Admin Sodium Chloride 1,000 mls @ 999 mls/hr 08/29/19 19:15 Sod Chlor 0.9% 1000ml Bag IV 08/29/19 20:15 .Q1H1M PATIENCE Discontinued Medications Generic Name Dose Route Start Last Admin Trade Name Freq PRN Reason Stop Dose Admin Ketorolac Tromethamine 30 mg 08/29/19 19:11 Toradol 30mg/Ml Vial IV 08/29/19 19:12 ONCE ONE Ondansetron HCl 4 mg 08/29/19 19:11 Zofran 4mg/2ml Vial IV 08/29/19 19:12 ONCE ONE ORDERS Category Date Time Status Amylase Stat Lab 08/29/19 19:11 Ordered Complete Blood Count Auto Diff Stat Lab 08/29/19 19:11 Ordered Comprehensive Metabolic Panel Stat Lab 08/29/19 19:11 Ordered Lactic Acid Stat Lab 08/29/19 19:15 Ordered Lipase Stat Lab 08/29/19 19:15 Ordered Blood Culture Stat Micro 08/29/19 19:15 Ordered Medical Decision Narrative: Upon entering room patient and family requested to be seen in ER states that they came to be seen in the ER and Dr Tony usually has her admitted and she has been having abdominal pain and had frequent pneumonia States that she started coughing and feels like her breathing is getting worse States that at this time she wants to go to ED Spoke with Dr Flanagan and informed him of patient request Patient appeared to be having some shortness of breath and breathing rapidly SPO2 rechecked and showed 83% and heart rate now 145 report to Maggy LOZANO patient transferred to room 10 [facility] [place] - General Stated complaint: Vomiting, diarrhea, Time Seen by Provider: 08/29/19 18:30 Mode of Arrival: Family Vehicle Source of Information: Patient Limitations: No Limitations Description of Symptoms (Recalled from Triage Doc. by RN): PER TRIAGE FOR DECISION: Fatigued, vomiting, diarrhea, headache intermittently, pt alert and oriented. UPON ARRIVAL TO [facility] PATIENT WITH C/O ABDOMINAL PAIN AND STATED SHE WANTED TO GO TO ED AND NOT [facility] HEENT Symptoms (Recalled from RN notes): No Resp Symptoms (Recalled from RN notes): No Skin Symptoms (Recalled from RN notes): No MS Symptoms (Recalled from RN notes): No Functional Status (Recalled from RN notes): N/A - History of Present Illness Provider Complaint: Patient states that she has been having abdominal pain, shortness of breath, vomiting and diarrhea and thinks she has pneumonia States that she hasnt eaten in 4 days and feels more short of breath today States that also has been having headaches Patient states that she wants to lay down and wants to be seen ER not in the [facility] - Related Data Home Medications Medication Instructions Recorded Confirmed Albuterol Sulfate [Albuterol HFA 2 puffs IH Q4HP PRN 09/04/18 06/10/19 Inhaler] Alendronate 35mg Tablet 70 mg PO WEEKLY 09/04/18 06/10/19 Fluticasone Furoate [Flonase 2 spray NS DAILY 09/04/18 06/10/19 Sensimist] Fluticasone/Salmeterol [Advair 1 puffs IH BID 09/04/18 06/10/19 100/50mcg diskus] Gabapentin [Neurontin 300mg 300 mg PO 5XDAY 09/04/18 06/10/19 capsule] Glycopyrrolate/Formoterol Fum 2 puffs IH BID 09/04/18 06/10/19 [Bevespi Aerosphere Inhaler] Linaclotide [Linzess] 145 mcg PO DAILY 09/04/18 06/10/19 Pantoprazole Sodium [Protonix 40mg 40 mg PO DAILY 09/04/18 06/10/19 tablet] SUMAtriptan succinate [Sumatriptan 100 mg PO NEEDED PRN 09/04/18 06/10/19 Succinate] Sertraline HCl [Zoloft 100mg 200 mg PO DAILY 09/04/18 06/10/19 tablet] Tamsulosin HCl [Flomax 0.4mg 0.4 mg PO HS 09/04/18 06/10/19 capsule] lisinopriL [Lisinopril 40mg Tablet] 40 mg PO DAILY 09/04/18 06/10/19 raNITIdine HCl [Ranitidine HCl] 150 mg PO BID 09/04/18 06/10/19 Codeine Phosphate/Guaifenesin 5 ml PO QID PRN 06/10/19 06/11/19 [Codeine-Guaifen 10-100 mg/5 ml] Furosemide [Furosemide 20mg Tab] 20 mg PO DAILY 06/11/19 06/11/19 levoFLOXacin [Levaquin 750mg 750 mg PO DAILY 06/19/19 tablet] Previous Rx's Medication Instructions Recorded Ondansetron [Zofran 4mg ODT] 4 mg SL Q8HP PRN tab.rapdis 09/04/18 Tizanidine HCl [Zanaflex 4mg 4 mg PO TIDP PRN tablet 09/04/18 tablet] Tramadol HCl [Ultram 50mg 50 mg PO QIDP PRN tablet 09/04/18 tablet] Trazodone HCl [Desyrel 50mg tablet] 50 mg PO HSP PRN tablet 09/04/18 Allergies Allergy/AdvReac Type Severity Reaction Status Date / Time iodine Allergy Unknown I-HIVES Verified 06/19/19 14:03 Penicillins Allergy Unknown I-HIVES Verified 06/19/19 14:03 - Worker's Comp Is this a Worker's Comp case?: No [facility] History - Hepatitis A Screen Drug use history?: No High risk sexual behaviors?: No History of sexually transmitted infection?: No Currently employed?: No Childcare worker?: No Do you have indoor plumbing?: Yes Do you have electricity?: Yes Attestation statement:: This patient has been screened for Hepatitis A risk factors. 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 Denies: Blood Transfusion Reaction Comment: Illnesses-COPD, chronic back pain, GERD, hypertension, Jgtpfli-Tzpsr-Zaskj Other Surgeries: Yes: Tubal Ligation, Other (PAIN PUMP IMPLANT). No: Pacemaker Amputation: No Fractures: No Comment: Operations-cholecystectomy, multiple foot surgeries, bilateral breast cyst surgery, neck surgery - Social History Smoking Status: Former smoker Tobacco Type: cigarettes Alcohol Intake: never Alcohol Intake Frequency:: other Occupational Status: other Housing: apartment Household Members: family - Psychiatric History Pschychiatric History:: Reports:: Depression Family Hx:: Diabetes, Heart Attack, Hypertension ROS Obtained: Yes All systems reviewed & no additional complaints, Yes Systems reviewed as appropriate & no additional complaints - Constitutional Constitutional: Reports body ache, Reports fever(s), Reports headache(s), Reports poor appetite, Reports lethargy, Reports weakness - Respiratory Respiratory: Yes chest congestion, Yes cough, Yes dyspnea - Gastrointestinal Gastrointestingal: Reports: abdominal pain, diarrhea, nausea, vomiting Physical Exam - General General appearance: alert - Respiratory Respiratory exam: Present: other (Rhonchi noted ). Absent: normal lung sounds bilaterally - Cardiovascular Cardiovascular exam: Present: tachycardia - Abdominal Exam Abdominal exam: Present: soft. Absent: distention, tenderness, guarding, rebound - Neurological Exam Neurological exam: Present: alert, oriented X3
--- NOTE | 2019-08-29 20:05 | Emergency Department Note ---
ED Disposition Clinical Impression: Pneumonia, community acquired Qualifiers: Laterality: right Lung location: lower lobe of lung Qualified Code(s): J18.9 - Pneumonia, unspecified organism Sepsis Qualifiers: Sepsis type: sepsis due to unspecified organism Sepsis acute organ dysfunction status: without acute organ dysfunction Qualified Code(s): A41.9 - Sepsis, unspecified organism Disposition: Admitted As Inpatient Condition on Discharge: Serious - Critical Care Critical Care Time: No Attestation: On 08/29/19, the high probability of a clinically significant, sudden or life threatening deterioration of the following system(s) required my full and direct attention, intervention and personal management. The time I documented below is in addition to time spent performing reported procedures but includes the following listed in this critical care notation. Medical Decision Making - Michele Inquiry Pt receiving controlled substance: No Vital Signs: 08/29/19 17:20 08/29/19 17:42 08/29/19 18:41 Temperature 97.5 F L 97.5 F L Temperature Source Axillary Axillary Pulse Rate [Right Radial] 55 L 55 L 145 H Respiratory Rate 20 20 28 H Blood Pressure [Right Arm] 131/94 H 131/94 H Blood Pressure Mean [Right Arm] 106 106 Blood Pressure Source [Right Arm] Manual Cuff/ Palpation Manual Cuff/ Palpation Blood Pressure Position [Right Arm] Sitting Sitting 02 Sat by Pulse Oximetry 98 98 83 L Oxygen Delivery Method Nasal Cannula Nasal Cannula Nasal Cannula Oxygen Flow Rate (LPM) 2.5 2.5 2.5 08/29/19 18:44 08/29/19 21:13 Temperature 98.4 F Temperature Source Oral Pulse Rate [Right Radial] 63 122 H Respiratory Rate 24 20 Blood Pressure [Right Arm] 143/98 H 118/82 Blood Pressure Mean [Right Arm] 113 94 Blood Pressure Source [Right Arm] Automatic Cuff Blood Pressure Position [Right Arm] Sitting 02 Sat by Pulse Oximetry 92 L 95 Oxygen Delivery Method Nasal Cannula Nasal Cannula Oxygen Flow Rate (LPM) 2 2.5 - Lab Data Lab Results 08/29/19 19:52: Urine Color Dk yellow, Urine Appearance Clear, Urine pH 6.0, Ur Specific [place] 1.025, Urine Protein 2+, Urine Glucose (UA) Negative, Urine Ketones Trace, Urine Blood Negative, Urine Nitrate Negative, Urine Bilirubin Negative, Urine Urobilinogen 1.0, Ur Leukocyte Esterase Negative, Ur Squamous Epith Cells 20-50, Urine Mucus 4+ 08/29/19 19:55: WBC 28.8 H*, RBC 4.58, Hgb 13.4, Hct 46.3, MCV 101.1 H, MCH 29.2, MCHC 28.9 L, RDW 16.9, Plt Count 608 H, MPV 15.2 H, Neut % (Auto) 86.3 H, Lymph % (Auto) 6.0 L, [place] % (Auto) 7.0, Eos % (Auto) 0.2, Baso % (Auto) 0.5, Neut # (Auto) 24.9 H, Lymph # (Auto) 1.7, [place] # (Auto) 2.0 H, Eos # (Auto) 0.1, Baso # (Auto) 0.2, Total Counted 100, Neutrophils % (Manual) 82 H, Band Neutrophils % 7.0, Lymphocytes % (Manual) 9 L, Monocytes % (Manual) 2, Toxic Granulation 1+, Toxic Vacuolation 1+, Platelet Estimate Marked increase, Hypochromasia 2+, Anisocytosis 1+, Rouleaux 2+ 08/29/19 19:55: Sodium 136, Potassium 3.5, Chloride 95 L, Carbon Dioxide 29, Anion Gap 15.5 H, BUN 16, Creatinine 0.69, Estimated Creat Clear 51, Estimated GFR 86, Est GFR ( Amer) 105, Glucose 106, Calcium 10.2 H, Total Bilirubin 0.5, AST 15, ALT 11 L, Alkaline Phosphatase 134 H, Total Protein 8.9 H, Albumin 2.4 L, Globulin 6.5 H, Albumin/Globulin Ratio 0.4 L, Amylase 14 L, Lipase 33 L 08/29/19 19:55: Lactate 3.3 H Result diagrams: 08/29/19 19:55 08/29/19 19:55 Orders (Tests/Meds): ED MEDICATIONS Generic Name Dose Route Start Last Admin Trade Name Freq PRN Reason Stop Dose Admin Albuterol/Ipratropium 3 ml 08/30/19 06:00 Duoneb 3ml Neb IH 09/29/19 05:59 QIDRT PATIENCE Sodium Chloride 1,000 mls @ 999 mls/hr 08/29/19 19:15 08/29/19 19:40 Sod Chlor 0.9% 1000ml Bag IV 08/29/19 20:15 999 mls/hr .Q1H1M PATIENCE Administration Cefepime HCl 2 gm/ Sodium 100 mls @ 100 mls/hr 08/29/19 21:00 08/29/19 21:03 Chloride IV 09/12/19 20:59 100 mls/hr Q12H PATIENCE Administration Protocol Levofloxacin/Dextrose 750 mg in 150 mls @ 100 mls/hr 08/29/19 21:00 Levofloxacin 750mg/150ml Premix IV 09/12/19 20:59 Q24H PATIENCE Protocol Sodium Chloride 3 ml 08/29/19 21:47 Sodium Chloride 3% 15ml Neb IH 09/28/19 21:46 ONCE PRN INDUCE SPUTUM COLLECTION Discontinued Medications Generic Name Dose Route Start Last Admin Trade Name Freq PRN Reason Stop Dose Admin Ketorolac Tromethamine 30 mg 08/29/19 19:11 08/29/19 19:39 Toradol 30mg/Ml Vial IV 08/29/19 19:12 30 mg ONCE ONE Administration Methylprednisolone Sodium Succinate 125 mg 08/29/19 20:58 08/29/19 21:03 Solu-Medrol 125mg/2ml Vial IV 08/29/19 20:59 125 mg ONCE ONE Administration Ondansetron HCl 4 mg 08/29/19 19:11 08/29/19 19:40 Zofran 4mg/2ml Vial IV 08/29/19 19:12 4 mg ONCE ONE Administration ORDERS Category Date Time Status CT abdomen pelvis wo con Stat Cat Scan 08/29/19 20:10 Taken Chest XR 2 view (NOT portable) [XR chest 2V] Stat Exams 08/29/19 19:37 Taken Diarrhea 6-11 Panel, Cdiff PCR Routine Lab 08/29/19 Ordered Blood Culture Stat Micro 08/29/19 19:52 Received - Radiology Data #1 Image(s): Chest Image Reviewed: Yes I reviewed the patient's radiology image Large right lower lobe infiltrate - CT Data CT Scan: Abdomen, Pelvis Time Received: 21:51 ([facility] fax) ED CT Reviewed: Yes: I have viewed the radiologist's interpretation Findings Narrative: Small bowel findings as can be seen with bloating. No definite evidence of bowel obstruction. Possible urinary retention. Right lower lobe infectious pneumonia. - Physician Consults Physician Consulted: Jose Carlos Wills Time: 20:50 Reason -: Admission Comment/Response: Agrees to admit the patient to the hospital. We discussed the patient's clinical information, including history, exam, laboratory and radiology results and ED course. Per hospital procedure, I will write temporary bridge inpatient orders on the patient. Specific orders requested by the admitting physician: Levaquin and cefepime requested. Continue nebulizers, steroids. General Adult HPI - General Chief complaint: Nausea/Vomiting/Diarrhea Stated complaint: Vomiting, diarrhea, Time Seen by Provider: 08/29/19 20:05 Mode of Arrival: Family Vehicle Source of Information: Patient Limitations: No Limitations Description of Symptoms (Recalled from ER Triage Doc. by RN): PER TRIAGE FOR DECISION: Fatigued, vomiting, diarrhea, headache intermittently, pt alert and oriented. UPON ARRIVAL TO [facility] PATIENT WITH C/O ABDOMINAL PAIN AND STATED SHE WANTED TO GO TO ED AND NOT [facility] - History of Present Illness HPI narrative: States she has been sick for 4 days. She has nausea, vomiting, diarrhea, gene ralized abdominal pain, productive cough, rhinorrhea, fever up to 101 degrees. She says no family members are sick. No recent antibiotics. She has COPD and is on home oxygen. She uses nebulizer treatments and has had 5 today, normally uses 4 a day. - Related Data Home Medications Medication Instructions Recorded Confirmed Albuterol Sulfate [Albuterol HFA 2 puffs IH Q4HP PRN 09/04/18 08/29/19 Inhaler] Alendronate 35mg Tablet 70 mg PO WEEKLY 09/04/18 08/29/19 Fluticasone Furoate [Flonase 2 spray NS DAILY 09/04/18 08/29/19 Sensimist] Fluticasone/Salmeterol [Advair 1 puffs IH BID 09/04/18 08/29/19 100/50mcg diskus] Gabapentin [Neurontin 300mg 300 mg PO 5XDAY 09/04/18 08/29/19 capsule] Glycopyrrolate/Formoterol Fum 2 puffs IH BID 09/04/18 08/29/19 [Bevespi Aerosphere Inhaler] Linaclotide [Linzess] 145 mcg PO DAILY 09/04/18 08/29/19 SUMAtriptan succinate [Sumatriptan 100 mg PO NEEDED PRN 09/04/18 08/29/19 Succinate] Sertraline HCl [Zoloft 100mg 200 mg PO DAILY 09/04/18 08/29/19 tablet] Tamsulosin HCl [Flomax 0.4mg 0.4 mg PO HS 09/04/18 08/29/19 capsule] raNITIdine HCl [Ranitidine HCl] 150 mg PO BID 09/04/18 08/29/19 Codeine Phosphate/Guaifenesin 5 ml PO QID PRN 06/10/19 08/29/19 [Codeine-Guaifen 10-100 mg/5 ml] Furosemide [Furosemide 20mg Tab] 20 mg PO DAILY 06/11/19 08/29/19 Previous Rx's Medication Instructions Recorded Ondansetron [Zofran 4mg ODT] 4 mg SL Q8HP PRN tab.rapdis 09/04/18 Tizanidine HCl [Zanaflex 4mg 4 mg PO TIDP PRN tablet 09/04/18 tablet] Tramadol HCl [Ultram 50mg 50 mg PO QIDP PRN tablet 09/04/18 tablet] Trazodone HCl [Desyrel 50mg tablet] 50 mg PO HSP PRN tablet 09/04/18 Allergies Allergy/AdvReac Type Severity Reaction Status Date / Time iodine Allergy Unknown I-HIVES Verified 06/19/19 14:03 Penicillins Allergy Unknown I-HIVES Verified 06/19/19 14:03 [facility] History - Hepatitis A Screen Drug use history?: No High risk sexual behaviors?: No History of sexually transmitted infection?: No Currently employed?: No Childcare worker?: No Do you have indoor plumbing?: Yes Do you have electricity?: Yes Attestation statement:: This patient has been screened for Hepatitis A risk factors. I have reviewed the patient's past medical history: Yes Medical History: Reports:: Chronic Obstructive Pulmonary Disease (COPD), Depression, Gastroesophageal Reflux Disease(GERD), Hyperlipidemia, Hypertension Denies:: Cancer, Diabetes Mellitus Type 1, Diabetes Mellitus Type 2, Internal Pacemaker, MRSA, Seizures Other Medical History: Reports: Arthritis, Hypothyroidism, Other (ENEIDA, Home 02/ Tjzfgkz-Sxbqb-Gsxpx disease, Implanted pain pump). Denies: Blood Transfusion Reaction Comment: Illnesses-COPD, chronic back pain, GERD, hypertension, Mjehipo-Anzzd-Ouicy Other Surgeries: Yes: Tubal Ligation, Other (PAIN PUMP IMPLANT). No: Pacemaker Amputation: No Fractures: No Comment: Operations-cholecystectomy, multiple foot surgeries, bilateral breast cyst surgery, neck surgery - Social History Smoking Status: Former smoker Tobacco Type: cigarettes Alcohol Intake: never Alcohol Intake Frequency:: other Occupational Status: other Housing: apartment Household Members: family - Psychiatric History Pschychiatric History:: Reports:: Depression Family Hx:: Diabetes, Heart Attack, Hypertension ROS Obtained: Yes All systems reviewed & no additional complaints - Constitutional Constitutional: Reports fever(s) - ENT Ears, Nose, Mouth, and Throat: Reports nasal discharge - Cardiovascular Cardiovascular: Denies chest pain - Respiratory Respiratory: Yes cough - Gastrointestinal Gastrointestingal: Reports: abdominal pain, diarrhea, vomiting Physical Exam - General General appearance: alert, in no apparent distress - Head Head exam: atraumatic, normocephalic - Eye Eye exam: Present: normal appearance, EOMI - ENT ENT exam: Present: mucous membranes moist - Neck Neck exam: Present: normal inspection, trachea midline - Chest Chest inspection: Present: normal inspection, symmetric chest wall rise - Respiratory Respiratory exam: Present: normal lung sounds bilaterally. Absent: respiratory distress - Cardiovascular Cardiovascular exam: Present: regular rate - Abdominal Exam Abdominal exam: Present: soft, tenderness, normal bowel sounds. Absent: rebound, rigidity Abdominal tenderness: Present: diffuse, moderate - Extremities Exam Extremities exam: Present: normal inspection - Neurological Exam Neurological exam: Present: alert - Psychiatric Psychiatric exam: Present: normal affect, normal mood - Skin Skin exam: Present: warm, dry
[2019-08-29 20:07] LABS: Basophils # 0.2 K/mm3 (0-0.2); Basophils % 0.5 % (0.1-2.0); Eosinophils # 0.1 K/mm3 (0.0-0.4); Eosinophils % 0.2 % (0.1-12.0); Hematocrit 46.3 % (37.0-47.0); Hemoglobin 13.4 g/dL (12.2-16.2); Lymphocytes # 1.7 K/mm3 (0.7-4.5); Mean Corpuscular HGB Conc 28.9 g/dL (31.8-35.4); Mean Corpuscular Volume 101.1 fl (81-99); Mean Platelet Volume 15.2 fl (7.4-10.4); Neutrophils # 24.9 K/mm3 (1.8-7.8); Neutrophils % 86.3 % (37.0-80.0); Red Blood Count 4.58 M/mm3 (4.20-5.40); Red Cell Distribution Width 16.9 % (11.5-17.5)
[2019-08-29 20:08] LABS: Platelet Count 608 K/mm3 (142-424); White Blood Count 28.8 K/mm3 (4.8-10.8)
[2019-08-29 20:13] LABS: Microscopic, Urine URINE MICROSCOPIC (MICROSCOPIC)
[2019-08-29 20:21] LABS: Anisocytosis 1+; Lymphocytes % 9 % (10-50); Monocytes % 2 % (2-9); Neutrophils % 82 % (42-76); Total Cells Counted 100
[2019-08-29 20:22] LABS: Hypochromasia 2+; Rouleaux 2+; Toxic Granulation 1+; Toxic Vacuolation 1+
[2019-08-29 20:24] LABS: Albumin Level 2.4 gm/dL (3.4-5.0); Albumin/Globulin Ratio 0.4 (1.1-1.8); Anion Gap 15.5 mEq/L (5-15); Bilirubin,Total 0.5 mg/dL (0.2-1.0); Calcium 10.2 mg/dL (8.5-10.1); Globulin 6.5 gm/dl (1.3-3.2); Total Protein,Serum 8.9 gm/dL (6.4-8.2)
[2019-08-29 20:31] LABS: Appearance,Urine CLEAR (Clear); Blood, Urine Negative (Negative); Color,Urine DK YELLOW (Yellow); Glucose,Urine (UA) Negative (Negative); Ketones,Urine TRACE (Negative); Leukocyte Esterase,Urine Negative (Negative); Protein,Urine 2+ (Negative); Specific Gravity, Urine 1.025 (1.005-1.030)
[2019-08-29 20:38] LABS: Bilirubin,Urine Negative (Negative); Mucus,Urine 4+ /lpf; Squamous Epithelial Cell,Urine 20-50 #/hpf (0-5)
[2019-08-30 08:21] LABS: Basophils % 0.1 % (0.1-2.0); Eosinophils % 0.1 % (0.1-12.0); Hematocrit 41.5 % (37.0-47.0); Hemoglobin 12.2 g/dL (12.2-16.2); Lymphocytes # 1.1 K/mm3 (0.7-4.5); Lymphocytes % 4.4 % (10-50); Mean Corpuscular HGB Conc 29.5 g/dL (31.8-35.4); Mean Platelet Volume 8.3 fl (7.4-10.4); Monocytes # 1.2 K/mm3 (0.1-1.0); Monocytes % 4.8 % (1.7-9.3); Neutrophils # 22.8 K/mm3 (1.8-7.8); Neutrophils % 90.6 % (37.0-80.0); Platelet Count 670 K/mm3 (142-424); Red Blood Count 4.19 M/mm3 (4.20-5.40); Red Cell Distribution Width 15.9 % (11.5-17.5); White Blood Count 25.2 K/mm3 (4.8-10.8)
[2019-08-30 08:31] LABS: Anion Gap 14.5 mEq/L (5-15); Calcium 9.3 mg/dL (8.5-10.1)
--- NOTE | 2019-08-30 08:32 | History & Physical Report ---
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 Denies: Blood Transfusion Reaction Other Surgeries: Yes: Cholecystectomy, Tubal Ligation, Other (PAIN PUMP IMPLANT). No: Pacemaker Amputation: No Fractures: No - *Social History Smoking Status: Former smoker Tobacco Type: cigarettes # Packs/Day (cigarettes): 2 Alcohol Intake: never Alcohol Intake Frequency:: other *Occupational Status:: other Housing: apartment Household Members: family *Travel in the last 8 weeks: None - Psychiatric History Pschychiatric History:: Reports:: Depression Family Hx:: Asthma, Hyperlipidemia, Hypertension, Stroke Review of Systems - Review of Systems Review of systems:: pertinent systems reviewed and negative unless documented below - Constitutional Reports fatigue, Reports fever(s), Reports night sweats - Eyes Denies blind spots, Denies dry eyes - ENT Reports poor balance, Reports dizziness, Reports dry mouth, Reports difficulty swallowing, Denies abnormal hearing - *Cardiovascular Reports shortness of breath, Denies shortness of breath with activity - *Respiratory Reports change in phlegm color, Reports shortness of breath with activity, Reports excessive phlegm production, Denies coughing up blood - *Gastrointestinal Denies abdominal pain, Denies change in stools, Denies loose stools - *Musculoskeletal Reports abnormal walking, Reports joint swelling, Reports limited joint movement, Reports muscle weakness - Integumentary/Breasts Denies acne, Denies change in skin color, Denies excessive hair growth, Denies non-healing lesions - *Neurologic Reports headache(s), Reports weakness - Psychiatric Denies abnormal sleep pattern - Endocrine Denies cold intolerance, Denies rapid, pounding, or irregular heartbeat, Denies increased thirst - Hematologic/Lymphatic Denies easy bleeding, Denies easy bruising Meds Home Medications Medication Instructions Recorded Confirmed Type Albuterol Sulfate [Albuterol HFA 2 puffs IH Q4HP PRN 09/04/18 08/29/19 History Inhaler] Alendronate 35mg Tablet 70 mg PO WEEKLY 09/04/18 08/29/19 History Fluticasone Furoate [Flonase 2 spray NS DAILY 09/04/18 08/29/19 History Sensimist] Fluticasone/Salmeterol [Advair 1 puffs IH BID 09/04/18 08/29/19 History 100/50mcg diskus] Gabapentin [Neurontin 300mg 300 mg PO 5XDAY 09/04/18 08/29/19 History capsule] Glycopyrrolate/Formoterol Fum 2 puffs IH BID 09/04/18 08/29/19 History [Bevespi Aerosphere Inhaler] Linaclotide [Linzess] 145 mcg PO DAILY 09/04/18 08/29/19 History Ondansetron [Zofran 4mg ODT] 4 mg SL Q8HP PRN tab.rapdis 09/04/18 08/29/19 Rx SUMAtriptan succinate [Sumatriptan 100 mg PO NEEDED PRN 09/04/18 08/29/19 History Succinate] Sertraline HCl [Zoloft 100mg 200 mg PO DAILY 09/04/18 08/29/19 History tablet] Tamsulosin HCl [Flomax 0.4mg 0.4 mg PO HS 09/04/18 08/29/19 History capsule] Tizanidine HCl [Zanaflex 4mg 4 mg PO TIDP PRN tablet 09/04/18 08/29/19 Rx tablet] Tramadol HCl [Ultram 50mg 50 mg PO QIDP PRN tablet 09/04/18 08/29/19 Rx tablet] Trazodone HCl [Desyrel 50mg tablet] 50 mg PO HSP PRN tablet 09/04/18 08/29/19 Rx raNITIdine HCl [Ranitidine HCl] 150 mg PO BID 09/04/18 08/29/19 History Codeine Phosphate/Guaifenesin 5 ml PO QID PRN 06/10/19 08/29/19 History [Codeine-Guaifen 10-100 mg/5 ml] Furosemide [Furosemide 20mg Tab] 20 mg PO DAILY 06/11/19 08/29/19 History Allergies Allergy/AdvReac Type Severity Reaction Status Date / Time iodine Allergy Unknown I-HIVES Verified 06/19/19 14:03 Penicillins Allergy Unknown I-HIVES Verified 06/19/19 14:03 Exam Vital signs and Labs for Last 24 Hours: Temp Pulse Resp BP Pulse Ox 97.5 F L 106 H 18 107/74 L 93 L 08/30/19 08:00 08/30/19 08:00 08/30/19 08:00 08/30/19 08:00 08/30/19 08:00 Laboratory Results - last 24 hr 08/29/19 19:52: Urine Color Dk yellow, Urine Appearance Clear, Urine pH 6.0, Ur Specific [place] 1.025, Urine Protein 2+, Urine Glucose (UA) Negative, Urine Ketones Trace, Urine Blood Negative, Urine Nitrate Negative, Urine Bilirubin Negative, Urine Urobilinogen 1.0, Ur Leukocyte Esterase Negative, Ur Squamous Epith Cells 20-50, Urine Mucus 4+ 08/29/19 19:55: WBC 28.8 H*, RBC 4.58, Hgb 13.4, Hct 46.3, MCV 101.1 H, MCH 29.2, MCHC 28.9 L, RDW 16.9, Plt Count 608 H, MPV 15.2 H, Neut % (Auto) 86.3 H, Lymph % (Auto) 6.0 L, [place] % (Auto) 7.0, Eos % (Auto) 0.2, Baso % (Auto) 0.5, Neut # (Auto) 24.9 H, Lymph # (Auto) 1.7, [place] # (Auto) 2.0 H, Eos # (Auto) 0.1, Baso # (Auto) 0.2, Total Counted 100, Neutrophils % (Manual) 82 H, Band Neutrophils % 7.0, Lymphocytes % (Manual) 9 L, Monocytes % (Manual) 2, Toxic Granulation 1+, Toxic Vacuolation 1+, Platelet Estimate Marked increase, Hypochromasia 2+, Anisocytosis 1+, Rouleaux 2+ 08/29/19 19:55: Sodium 136, Potassium 3.5, Chloride 95 L, Carbon Dioxide 29, Anion Gap 15.5 H, BUN 16, Creatinine 0.69, Estimated Creat Clear 51, Estimated GFR 86, Est GFR ( Amer) 105, Glucose 106, Calcium 10.2 H, Total Bilirubin 0.5, AST 15, ALT 11 L, Alkaline Phosphatase 134 H, Total Protein 8.9 H, Albumin 2.4 L, Globulin 6.5 H, Albumin/Globulin Ratio 0.4 L, Amylase 14 L, Lipase 33 L 08/29/19 19:55: Lactate 3.3 H 08/29/19 23:55: Lactate 0.8 08/30/19 07:24: WBC 25.2 H*, RBC 4.19 L, Hgb 12.2, Hct 41.5, MCV 99.0, MCH 29.2, MCHC 29.5 L, RDW 15.9, Plt Count 670 H, MPV 8.3, Neut % (Auto) 90.6 H, Lymph % (Auto) 4.4 L, [place] % (Auto) 4.8, Eos % (Auto) 0.1, Baso % (Auto) 0.1, Neut # (Auto) 22.8 H, Lymph # (Auto) 1.1, [place] # (Auto) 1.2 H, Eos # (Auto) 0.0, Baso # (Auto) 0.0 I & O for Last 24 hours: Intake & Output 08/27/19 08/28/19 08/29/19 08/30/19 11:59 11:59 11:59 11:59 Intake Total 1100 / 1100 Output Total 100 / 100 Balance 1000 / 1000 Weight 109 lb 6 oz Microbiology Reports for the Last 24 Hours: Microbiology 08/29/19 23:15 Sputum - Expectorated Sputum Gram Stain - Final Narrative: Patient is awake, alert. Pleasant. Appears malnourished and cachectic. Appears older than her stated age. Wearing oxygen. Poor dentition with dry oral mucosa. No JVD. Lungs have rhonchi in the right middle and lower lung field. Worse than the left side. Heart rate regular. Abdomen soft. Upper extremities normal with normal bulk and tone. Lower extremities with foot deformities previously noted consistent with her Zmdxjhs-Vwukb-Ylqit syndrome. Assessment and Plan (1) Protein-calorie malnutrition, moderate Current visit: Yes Status: Acute Category: Medical Code(s): E44.0 - Moderate protein-calorie malnutrition Complicates all aspects of her care (2) Pneumonia, community acquired Current visit: Yes Status: Acute Qualifiers: Laterality: right Lung location: lower lobe of lung Qualified Code(s): J18.9 - Pneumonia, unspecified organism Category: Medical Code(s): J18.9 - Pneumonia, unspecified organism Given significant smoking history and right middle lobe appearance we will get CT scan of chest. Agree with admission for broad-spectrum antibiotics. Has a history of Pseudomonas pneumonia. 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
[2019-08-30 09:39] LABS: Eosinophils % 1 % (0-3); Lymphocytes % 5 % (10-50); Monocytes % 5 % (2-9); Neutrophils % 89 % (42-76); Nucleated Red Blood Cells 3; Total Cells Counted 100
[2019-08-30 09:41] LABS: Rouleaux 1+
[2019-08-30 09:43] LABS: Anisocytosis 1+; Hypochromasia 1+
--- NOTE | 2019-08-30 13:34 | Pharmacy Consult Notes ---
[facility] VTE Monitoring - Patient Demographics Admission date: 08/30/19 Report Date: 08/30/19 Time: 13:34 Allergies/Adverse Reactions: Patient Allergies iodine Allergy (Unknown, Verified 06/19/19 14:03) I-HIVES Penicillins Allergy (Unknown, Verified 06/19/19 14:03) I-HIVES Height: 1.63 m Weight: 49.612 kg Patient Problems: Current Active Problems Pneumonia, community acquired (Acute) Sepsis (Acute) Protein-calorie malnutrition, moderate (Acute) - VTE Risk Labs: VTE Related Lab Results Hgb 12.2 g/dL (12.2-16.2) 08/30/19 07:24 Hct 41.5 % (37.0-47.0) 08/30/19 07:24 Plt Count 670 K/mm3 (142-424) H 08/30/19 07:24 BUN 18 mg/dL (7-18) 08/30/19 07:24 Creatinine 0.53 mg/dL (0.55-1.02) L D 08/30/19 07:24 Estimated Creat Clear 46 mL/min (50-200) 08/30/19 07:24 VTE Score: 5 VTE Risk Level: Low Risk - Prophylaxis Types of VTE Prophylaxis: TEDS Knee High (FAITH HOSE ORDERED)
[2019-08-31 07:14] LABS: Basophils % 0.1 % (0.1-2.0); Hematocrit 38.7 % (37.0-47.0); Hemoglobin 11.6 g/dL (12.2-16.2); Lymphocytes # 0.8 K/mm3 (0.7-4.5); Lymphocytes % 4.5 % (10-50); Mean Corpuscular HGB Conc 30.1 g/dL (31.8-35.4); Mean Corpuscular Volume 95.1 fl (81-99); Mean Platelet Volume 8.2 fl (7.4-10.4); Monocytes # 0.9 K/mm3 (0.1-1.0); Monocytes % 5.5 % (1.7-9.3); Neutrophils # 15.2 K/mm3 (1.8-7.8); Neutrophils % 89.8 % (37.0-80.0); Platelet Count 707 K/mm3 (142-424); Red Blood Count 4.07 M/mm3 (4.20-5.40); Red Cell Distribution Width 15.8 % (11.5-17.5); White Blood Count 16.9 K/mm3 (4.8-10.8)
[2019-08-31 07:24] LABS: Albumin Level 1.7 gm/dL (3.4-5.0); Albumin/Globulin Ratio 0.3 (1.1-1.8); Anion Gap 11.5 mEq/L (5-15); Bilirubin,Total 0.2 mg/dL (0.2-1.0); Calcium 9.1 mg/dL (8.5-10.1); Globulin 5.1 gm/dl (1.3-3.2); Total Protein,Serum 6.8 gm/dL (6.4-8.2)
--- NOTE | 2019-08-31 08:31 | Progress Note ---
Internal Medicine - PN: Subj *Date: 08/31/19 *Time: 08:30 Interval history: Overall patient feels somewhat better, continues to be weak, notes that her breathing is somewhat better. No fevers. Continues to cough up purulent sputum. Exam Vital signs and Labs for Last 24 Hours: Temp Pulse Resp BP Pulse Ox 97.7 F 78 18 146/90 H 95 08/31/19 04:00 08/31/19 06:09 08/31/19 04:00 08/31/19 04:00 08/31/19 06:07 Laboratory Results - last 24 hr 08/30/19 07:24: Total Counted 100, Neutrophils % (Manual) 89 H, Lymphocytes % (Manual) 5 L, Monocytes % (Manual) 5, Eosinophils % (Manual) 1, Nucleated RBCs 3, Platelet Estimate Slight increase, Hypochromasia 1+, Anisocytosis 1+, Rouleaux 1+ 08/30/19 07:24: Sodium 138, Potassium 3.5, Chloride 102, Carbon Dioxide 25, Anion Gap 14.5, BUN 18, Creatinine 0.53 L D, Estimated Creat Clear 46, Estimated GFR 117, Est GFR ( Amer) 142 D, Glucose 103, Calcium 9.3 08/31/19 06:10: WBC 16.9 H D, RBC 4.07 L, Hgb 11.6 L, Hct 38.7, MCV 95.1, MCH 28.6, MCHC 30.1 L, RDW 15.8, Plt Count 707 H, MPV 8.2, Neut % (Auto) 89.8 H, Lymph % (Auto) 4.5 L, [place] % (Auto) 5.5, Eos % (Auto) 0.0 L, Baso % (Auto) 0.1, Neut # (Auto) 15.2 H, Lymph # (Auto) 0.8, [place] # (Auto) 0.9, Eos # (Auto) 0.0, Baso # (Auto) 0.0 08/31/19 06:10: Sodium 136, Potassium 3.5, Chloride 101, Carbon Dioxide 27, Anion Gap 11.5, BUN 18, Creatinine 0.51 L, Estimated Creat Clear 48, Estimated GFR 123, Est GFR ( Amer) 148, Glucose 120 H, Calcium 9.1, Total Bilirubin 0.2, AST 7 L D, ALT 7 L D, Alkaline Phosphatase 102, Total Protein 6.8, Albumin 1.7 L D, Globulin 5.1 H, Albumin/Globulin Ratio 0.3 L I & O for Last 24 hours: Intake & Output 08/28/19 08/29/19 08/30/19 08/31/19 11:59 11:59 11:59 11:59 Intake Total 1100 / 1100 1316 / 1316 Output Total 100 / 100 200 / 200 Balance 1000 / 1000 1116 / 1116 Weight 109 lb 6 oz 114 lb 7 oz Microbiology Reports for the Last 24 Hours: Microbiology 08/29/19 23:15 Sputum - Expectorated Sputum Gram Stain - Final 08/29/19 23:15 Sputum - Expectorated Sputum Sputum Culture - Preliminary Gram Negative Rods Narrative: Patient is pleasant, talkative. Crackles in the right middle and lower lung field, somewhat better air movement than yesterday. Left side is clear, heart rate regular. Abdomen soft, patient appears chronically ill, and cachectic as previously noted. Foot exam remains abnormal at baseline. Assessment and Plan (1) Protein-calorie malnutrition, moderate Current visit: Yes Status: Acute Category: Medical Code(s): E44.0 - Moderate protein-calorie malnutrition (2) Pneumonia, community acquired Current visit: Yes Status: Acute Qualifiers: Laterality: right Lung location: lower lobe of lung Qualified Code(s): J18.9 - Pneumonia, unspecified organism Category: Medical Code(s): J18.9 - Pneumonia, unspecified organism (3) COPD exacerbation Current visit: No Status: Acute Category: Medical Code(s): J44.1 - Chronic obstructive pulmonary disease with (acute) exacerbation (4) Qnmgbnx-Krgbe-Foaew disease Current visit: No Status: Chronic Category: Medical Code(s): 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 Continue to treat with broad-spectrum antibiotics. Watch cultures carefully as patient has a history of Pseudomonas pneumonia. Possible swing bed candidate. PT/OT evaluation today.
[2019-08-31 10:02] LABS: Lymphocytes % 6 % (10-50); Monocytes % 3 % (2-9); Neutrophils % 91 % (42-76); Total Cells Counted 100
[2019-08-31 10:03] LABS: RBC Morphology Normal
[2019-09-01 05:42] LABS: Basophils % 0.2 % (0.1-2.0); Hematocrit 37.7 % (37.0-47.0); Hemoglobin 11.5 g/dL (12.2-16.2); Lymphocytes # 0.7 K/mm3 (0.7-4.5); Lymphocytes % 3.8 % (10-50); Mean Corpuscular HGB Conc 30.4 g/dL (31.8-35.4); Mean Corpuscular Volume 94.7 fl (81-99); Mean Platelet Volume 7.6 fl (7.4-10.4); Monocytes # 1.4 K/mm3 (0.1-1.0); Monocytes % 7.1 % (1.7-9.3); Neutrophils # 17.3 K/mm3 (1.8-7.8); Neutrophils % 88.9 % (37.0-80.0); Platelet Count 719 K/mm3 (142-424); Red Blood Count 3.98 M/mm3 (4.20-5.40); Red Cell Distribution Width 15.9 % (11.5-17.5); White Blood Count 19.5 K/mm3 (4.8-10.8)
[2019-09-01 05:44] LABS: Anion Gap 10.2 mEq/L (5-15); Calcium 9.3 mg/dL (8.5-10.1)
[2019-09-01 06:57] LABS: Lymphocytes % 2 % (10-50); Monocytes % 8 % (2-9); Neutrophils % 90 % (42-76); RBC Morphology Normal; Total Cells Counted 100
--- NOTE | 2019-09-01 09:33 | Progress Note ---
Internal Medicine - PN: Subj *Date: 09/01/19 *Time: 08:10 Interval history: Overall Ms. De Leon is doing a little bit better today. However still states she does not feel very well. Has had slow progress. Growing Pseudomonas from her sputum culture that is pansensitive. Still having chest soreness from coughing. Back to home oxygen level. Still receiving IV fluids but tolerating fair p.o. intake. Remained afebrile hemodynamically stable overnight. Denies nausea, vomiting, dizziness. Complains of shortness of breath slightly worse than baseline. Chest wall soreness from coughing that is reproducible on exam. Exam Vital signs and Labs for Last 24 Hours: Temp Pulse Resp BP Pulse Ox 98.7 F 115 H 19 151/86 H 90 L 09/01/19 08:00 09/01/19 08:00 09/01/19 08:00 09/01/19 08:00 09/01/19 08:00 Laboratory Results - last 24 hr 08/31/19 06:10: Total Counted 100, Neutrophils % (Manual) 91 H, Lymphocytes % (Manual) 6 L, Monocytes % (Manual) 3, Platelet Estimate Marked increase, RBC Morphology Normal 09/01/19 04:45: WBC 19.5 H, RBC 3.98 L, Hgb 11.5 L, Hct 37.7, MCV 94.7, MCH 28.8, MCHC 30.4 L, RDW 15.9, Plt Count 719 H, MPV 7.6, Neut % (Auto) 88.9 H, Lymph % (Auto) 3.8 L, [place] % (Auto) 7.1, Eos % (Auto) 0.0 L, Baso % (Auto) 0.2, Neut # (Auto) 17.3 H, Lymph # (Auto) 0.7, [place] # (Auto) 1.4 H, Eos # (Auto) 0.0, Baso # (Auto) 0.0, Total Counted 100, Neutrophils % (Manual) 90 H, Lymphocytes % (Manual) 2 L, Monocytes % (Manual) 8, Platelet Estimate Marked increase, RBC Morphology Normal 09/01/19 04:45: Sodium 139, Potassium 3.2 L, Chloride 105, Carbon Dioxide 27, Anion Gap 10.2, BUN 13 D, Creatinine 0.50 L, Estimated Creat Clear 49, Estimated GFR 125, Est GFR ( Amer) 152, Glucose 136 H, Calcium 9.3 I & O for Last 24 hours: Intake & Output 08/29/19 08/30/19 08/31/19 09/01/19 23:59 23:59 23:59 23:59 Intake Total 1100 / 1100 1316 / 1316 1440 / 1680 1566 / 1566 Output Total 300 / 300 300 / 1100 1350 / 1350 Balance 1100 / 1100 1016 / 1016 1140 / 580 216 / 216 Weight 49.612 kg 49.612 kg 52 kg 52.191 kg Microbiology Reports for the Last 24 Hours: Microbiology 08/29/19 23:15 Sputum - Expectorated Sputum Gram Stain - Final 08/29/19 23:15 Sputum - Expectorated Sputum Sputum Culture - Final Pseudomonas aeruginosa 08/29/19 19:52 Blood Blood Culture - Preliminary NO GROWTH AFTER 48 HOURS 08/29/19 19:52 Blood Blood Culture - Preliminary NO GROWTH AFTER 48 HOURS Narrative: Patient is pleasant, talkative, chronically ill appearing, cachetic Crackles in the right middle and lower lung field, fair air movement bilaterally, Left side is clear heart rate regular, no appreciable murmur Abdomen soft Chest wall tenderness along pectoralis junction with sternum. Foot exam remains abnormal at baseline. Assessment and Plan (1) Protein-calorie malnutrition, moderate Current visit: Yes Status: Acute Category: Medical Code(s): E44.0 - Moderate protein-calorie malnutrition (2) Pneumonia, community acquired Current visit: Yes Status: Acute Qualifiers: Laterality: right Lung location: lower lobe of lung Qualified Code(s): J18.9 - Pneumonia, unspecified organism Category: Medical Code(s): J18.9 - Pneumonia, unspecified organism (3) COPD exacerbation Current visit: No Status: Acute Category: Medical Code(s): J44.1 - Chronic obstructive pulmonary disease with (acute) exacerbation (4) Aselkoo-Gleun-Usncm disease Current visit: No Status: Chronic Category: Medical Code(s): 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 Has become worse with IV fluids and dilution. No apparent sources of blood loss., Threshold for transfusion less than 9 (6) Sepsis Current visit: Yes Status: Acute Qualifiers: Sepsis type: sepsis due to unspecified organism Sepsis acute organ dysfunction status: without acute organ dysfunction Qualified Code(s): A41.9 - Sepsis, unspecified organism Category: Medical Code(s): A41.9 - Sepsis, unspecified organism Tachycardic, tachypneic, leukocytosis on admission. Sepsis secondary to her pneumonia. Pneumonia positive for Pseudomonas in sputum culture. Antibiotics and cultures initiated per protocol. - Assessment and plan all Dx Assessment and Plan for all problems:: Chronically ill 63-year-old female with pseudomonal pneumonia, resolving sepsis. Sensitivities returned with ability to transition oral Levaquin at time of discharge. We will stop IV fluids and monitor for good oral intake today. Anticipate discharge tomorrow with plan for completing 10 to 14 days of oral Levaquin for pneumonia.
[2019-09-02 07:09] LABS: Basophils # 0.1 K/mm3 (0-0.2); Basophils % 0.4 % (0.1-2.0); Hematocrit 40.4 % (37.0-47.0); Hemoglobin 11.9 g/dL (12.2-16.2); Lymphocytes % 5.1 % (10-50); Mean Corpuscular HGB Conc 29.5 g/dL (31.8-35.4); Mean Corpuscular Volume 96.4 fl (81-99); Mean Platelet Volume 7.9 fl (7.4-10.4); Monocytes # 1.6 K/mm3 (0.1-1.0); Monocytes % 8.6 % (1.7-9.3); Neutrophils # 16.1 K/mm3 (1.8-7.8); Neutrophils % 85.9 % (37.0-80.0); Platelet Count 790 K/mm3 (142-424); Red Blood Count 4.19 M/mm3 (4.20-5.40); White Blood Count 18.7 K/mm3 (4.8-10.8)
[2019-09-02 07:16] LABS: Anion Gap 9.3 mEq/L (5-15); Calcium 9.1 mg/dL (8.5-10.1)
--- NOTE | 2019-09-02 07:55 | Discharge Summary ---
General - General Admission date:: 08/29/19 Discharge date: 09/02/19 HPI HPI: 63-year-old white female with end-stage COPD, chronic oxygen requiring, and wheelchair-bound status from Mgspttt-Opsoa-Uaqjp syndrome, who presented to the emergency department with cough, congestion, found to have leukocytosis of 28,000 and right middle lobe infiltrate, admitted to hospital for IV antibiotics and further diagnostic testing. Hospital Course Hospital Course: Patient was admitted to hospital. IV antibiotics were started. Sputum culture revealed the presence of Pseudomonas but fortunately had excellent sensitivity to p.o. levofloxacin. After a couple more days of pulmonary toilet, oxygen status improved and patient was almost back to her baseline vis--vis functioning. She will be discharged home today on p.o. levofloxacin. She will continue her nebulizer treatments, brief steroid administration and I will see her back in the office in 1 week. Objective Vital signs: Temp Pulse Resp BP Pulse Ox 98.5 F 88 19 152/79 H 90 L 09/02/19 04:00 09/02/19 06:20 09/02/19 04:00 09/02/19 04:00 09/02/19 06:20 Narrative: Patient up in chair, pleasant, alert, oriented x3. Oropharynx clear. No JVD. Lungs have rhonchi in both bases, improved air movement over admission. Heart rate regular. No changes in neurologic or musculoskeletal exam given her abnormalities on admission. abd soft Results Labs on day of discharge: Labs from last 24 hours 09/02/19 09/02/19 06:34 06:34 WBC 18.7 H RBC 4.19 L Hgb 11.9 L Hct 40.4 MCV 96.4 MCH 28.4 MCHC 29.5 L RDW 16.0 Plt Count 790 H MPV 7.9 Neut % (Auto) 85.9 H Lymph % (Auto) 5.1 L [place] % (Auto) 8.6 Eos % (Auto) 0.0 L Baso % (Auto) 0.4 Neut # (Auto) 16.1 H Lymph # (Auto) 1.0 [place] # (Auto) 1.6 H Eos # (Auto) 0.0 Baso # (Auto) 0.1 Sodium 137 Potassium 3.3 L Chloride 102 Carbon Dioxide 29 Anion Gap 9.3 BUN 16 Creatinine 0.51 L Estimated Creat Clear 48 Estimated GFR 123 Est GFR ( Amer) 148 Glucose 123 H Calcium 9.1 Magnesium 1.8 Preliminary micro results at discharge 08/29/19 19:52 Blood Culture - Preliminary Blood NO GROWTH AFTER 48 HOURS 08/29/19 19:52 Blood Culture - Preliminary Blood NO GROWTH AFTER 48 HOURS DS: Diagnosis - Discharge Diagnosis (1) Protein-calorie malnutrition, moderate Status: Chronic (2) Pneumonia, community acquired Status: Acute (3) COPD exacerbation Status: Acute (4) Lavojpe-Fwbqu-Dnrlq disease Status: Chronic (5) Anemia Status: Chronic (6) Sepsis Status: Resolved (7) Pseudomonas pneumonia Status: Acute Discharge Plan - Patient Discharge Instructions ACTIVITY: Continue current activity DIET: continue same diet Patient Instructions: Pneumonia-Adult, Sepsis, Pneumococcal Vaccine, DI for Pneumonia -- Adult, DI for Sepsis -- Adult - Follow up Plan Follow up with: Neil Tony MD [Primary Care Provider] - 1 week Disposition: Home, Self-[facility] Medications: Home Medications Medication Instructions Recorded Confirmed Type Albuterol Sulfate [Albuterol HFA 2 puffs IH Q4HP PRN 09/04/18 08/30/19 History Inhaler] Fluticasone Furoate [Flonase 2 spray NS DAILY 09/04/18 08/29/19 History Sensimist] Fluticasone/Salmeterol [Advair 1 puffs IH BID 09/04/18 08/30/19 History 100/50mcg diskus] Gabapentin [Neurontin 300mg 300 mg PO 5XDAY 09/04/18 08/30/19 History capsule] Glycopyrrolate/Formoterol Fum 2 puffs IH BID 09/04/18 08/29/19 History [Bevespi Aerosphere Inhaler] Linaclotide [Linzess] 145 mcg PO DAILY 09/04/18 08/30/19 History Ondansetron [Zofran 4mg ODT] 4 mg SL Q8HP PRN tab.rapdis 09/04/18 08/29/19 Rx SUMAtriptan succinate [Sumatriptan 100 mg PO NEEDED PRN 09/04/18 08/29/19 History Succinate] Sertraline HCl [Zoloft 100mg 200 mg PO DAILY 09/04/18 08/30/19 History tablet] Tamsulosin HCl [Flomax 0.4mg 0.4 mg PO HS 09/04/18 08/30/19 History capsule] Tizanidine HCl [Zanaflex 4mg 4 mg PO TIDP PRN tablet 09/04/18 08/30/19 Rx tablet] Tramadol HCl [Ultram 50mg 50 mg PO QIDP PRN tablet 09/04/18 08/30/19 Rx tablet] Trazodone HCl [Desyrel 50mg tablet] 50 mg PO HSP PRN tablet 09/04/18 08/30/19 Rx raNITIdine HCl [Ranitidine HCl] 150 mg PO BID 09/04/18 08/30/19 History Furosemide [Furosemide 20mg Tab] 20 mg PO DAILY 06/11/19 08/30/19 History Alendronate Sodium 70 mg PO WEEKLY 08/30/19 08/30/19 History Ipratropium/Albuterol Sulfate 3 ml IH QID 30 Days #120 neb 09/02/19 Rx [Duoneb 3mL neb] levoFLOXacin [Levaquin 500mg 500 mg PO DAILY #7 tab 09/02/19 Rx tab] predniSONE [Deltasone 20mg 20 mg PO BID 7 Days #14 tab 09/02/19 Rx tablet] Prescriptions/Medication Reconciliation: New levoFLOXacin [Levaquin 500mg tab] 500 mg PO DAILY #7 tab predniSONE [Deltasone 20mg tablet] 20 mg PO BID 7 Days #14 tab Ipratropium/Albuterol Sulfate [Duoneb 3mL neb] 3 ml IH QID 30 Days #120 neb Continued Ondansetron [Zofran 4mg ODT] 4 mg SL Q8HP PRN tab.rapdis PRN Reason: Nausea Tizanidine HCl [Zanaflex 4mg tablet] 4 mg PO TIDP PRN tablet PRN Reason: MUSCLE SPASM Tramadol HCl [Ultram 50mg tablet] 50 mg PO QIDP PRN tablet PRN Reason: Moderate Pain Trazodone HCl [Desyrel 50mg tablet] 50 mg PO HSP PRN tablet PRN Reason: Sleep Tamsulosin HCl [Flomax 0.4mg capsule] 0.4 mg PO HS Sertraline HCl [Zoloft 100mg tablet] 200 mg PO DAILY Fluticasone/Salmeterol [Advair 100/50mcg diskus] 1 puffs IH BID Fluticasone Furoate [Flonase Sensimist] 2 spray NS DAILY Glycopyrrolate/Formoterol Fum [Bevespi Aerosphere Inhaler] 2 puffs IH BID Linaclotide [Linzess] 145 mcg PO DAILY SUMAtriptan succinate [Sumatriptan Succinate] 100 mg PO NEEDED PRN PRN Reason: Migraine Headache raNITIdine HCl [Ranitidine HCl] 150 mg PO BID Gabapentin [Neurontin 300mg capsule] 300 mg PO 5XDAY Albuterol Sulfate [Albuterol HFA Inhaler] 2 puffs IH Q4HP PRN PRN Reason: Shortness Of Breath Or Wheezing Alendronate Sodium 70 mg PO WEEKLY Discontinued Furosemide [Furosemide 20mg Tab] 20 mg PO DAILY - Problem Reconciliation Problems Reviewed?: Yes
[2019-09-02 09:40] LABS: Lymphocytes % 4 % (10-50); Monocytes % 4 % (2-9); Neutrophils % 90 % (42-76); Total Cells Counted 100
[2019-09-02 09:41] LABS: Hypochromasia 1+
== END 2019-09-02 10:20 | disposition home or self-care (01) | DRG 177 ==
LOC: 2ND 17:12 → UTC 17:12 → ER 17:12 → OBSVTOIN 22:00 → 2ND 22:01
PROVIDERS: ADMIT Emergency Medicine; ATTEND Internal Medicine Adolescent Medicine
CPT/HCPCS: 36415; 71020; 71046; 71250; 74176; 80048; 80053; 81001; 82150; 83605; 83690; 83735; 85007; 85025; 87040; 87070; 87077; 87186; 87205; 94640; 94761; 96365; 96367; 96375; 97110; 97162; 97166; 97530; 97535; 99285; J1956; J2405

== ENCOUNTER 2019-09-02 12:55 | Outpatient (RCR) | payer MEDICARE, MEDICAID, SELFPAY | END 2019-09-02 13:57 | disposition home or self-care (01) | LOC: PT 12:55 | PROVIDERS: PCP Internal Medicine Adolescent Medicine; Visit Provider Internal Medicine Adolescent Medicine | DX: Z99.3 Dependence on wheelchair (principal); R26.89 Other abnormalities of gait and mobility | CPT/HCPCS: 97542 ==

== ENCOUNTER → 2019-09-16 12:32 | Outpatient (CLI) | payer MEDICARE, MEDICAID, SELFPAY ==
--- NOTE | 2019-09-16 12:35 | CA_ITS ---
APPROVED REPORT EXAM: Comprehensive 2D, Doppler, and color-flow Echocardiogram Chemical Equipment Sales Engineer: Fariha Yao RT(R) Ht: 5 ft 4 in Wt: 140lbs BSA: 1.68 BP: 152/79 mmHg Indications: COPD, Edema, SOB, Hyperlipidemia, O2 dependent M-Mode Dimensions RVDd 2.37 cm (0.9-2.6) LVDd 4.01 cm (3.5-5.7) LVDs 3.17 cm (3.5-5.7) IVSd 1.12 cm (0.6-1.1) PWd 0.84 cm (0.6-1.1) EF (Teich) 43.20% FS 20.90% EDV (Teich) 70.40 mL ESV (Teich) 40.00 mL LV Diastology E/A Ratio 0.71 Mitral Valve MV A Velocity 69.00 (40-130 cm/s) Left Ventricle Left atrium is mildly enlarged, left ventricle is normal size, mild concentric left ventricular hypertrophy, visually estimated ejection fraction 55% with no regional wall motion abnormality, grade 1 diastolic dysfunction seen without tissue Doppler evidence of raise left atrial pressure. Right Ventricle Right atrium and right ventricle normal size and contractility. Aortic Valve Aortic valve is minimally thickened and fibrosed, there is no aortic stenosis or aortic insufficiency. Mitral Valve Mitral valve is grossly normal, there is mild mitral regurgitation. Tricuspid Valve Tricuspid valve is grossly normal, there is mild tricuspid regurgitation. Pulmonic Valve Pulmonic valve is poorly visualized. Great Vessels Aortic root is normal size. Pericardium No significant pericardial effusion noted. Conclusion 1. Normal left ventricular size, mild concentric left ventricular hypertrophy, visually estimated ejection fraction 55% with no regional wall motion abnormality, grade 1 diastolic dysfunction seen without tissue Doppler evidence of raise left atrial pressure. 2. Mild mitral and tricuspid regurgitation. 3. No significant pericardial effusion noted. Electronically signed by : Bart Cox, 09/17/2019 15:00:20
--- NOTE | 2019-09-16 12:36 | US_ITS ---
APPROVED REPORT Exam Type: Lower Extremity Segmental Pressures Car Attendant: Moira Bella RDCS Indications Claudication: Non-healing Ulcer: Rest Pain: Edema History of Smoking Pressures/Indices Right Indices Left Indices Brachial 115.00 mmHg Brachial 118.00 mmHg Low Thigh 120.00 mmHg 1.02 Low Thigh 129.00 mmHg 1.09 Calf 110.00 mmHg 0.93 Calf 118.00 mmHg 1.00 Ankle(PT) 106.00 mmHg 0.90 Ankle(PT) 117.00 mmHg 0.99 Ankle(DP) 121.00 mmHg 1.03 Ankle(DP) 129.00 mmHg 1.09 Digit 88.00 mmHg 0.75 Digit 121.00 mmHg 1.03 Findings R TYLER .9 L TYLER 1.0 R TBI .8 L TBI 1.0 DIMINISHED PULSES NORMAL WAVEFORMS Conclusion DIMINISHED PULSES NORMAL WAVEFORMS TYLER's within normal limits Electronically signed by : Olegario De La Cruz MD 09/18/2019 17:25:07
== END ==
PROVIDERS: PCP Internal Medicine Adolescent Medicine; Visit Provider Internal Medicine Adolescent Medicine
DX: R09.89 Other specified symptoms and signs involving the circulatory and respiratory systems (principal); M79.604 Pain in right leg; M79.605 Pain in left leg; R60.0 Localized edema
CPT/HCPCS: 93306; 93923

== ENCOUNTER 2019-10-01 12:52 | Inpatient (IN) ==
--- NOTE | 2019-10-01 13:06 | Emergency Department Note ---
ED Disposition Clinical Impression: Healthcare-associated pneumonia Urinary tract infection Qualifiers: Urinary tract infection type: site unspecified Hematuria presence: without hematuria Qualified Code(s): N39.0 - Urinary tract infection, site not specified Sepsis Qualifiers: Sepsis type: sepsis due to unspecified organism Sepsis acute organ dysfunction status: without acute organ dysfunction Qualified Code(s): A41.9 - Sepsis, unspecified organism Respiratory failure with hypoxia Qualifiers: Chronicity: acute Qualified Code(s): J96.01 - Acute respiratory failure with hypoxia Disposition: Admitted As Inpatient Condition on Discharge: Serious Referrals: Provider,Referral, [Primary Care Provider] - - Critical Care Critical Care Time: Yes Attestation: On , the high probability of a clinically significant, sudden or life threatening deterioration of the following system(s) required my full and direct attention, intervention and personal management. The time I documented below is in addition to time spent performing reported procedures but includes the following listed in this critical care notation. Vital system(s) involved:: Respiratory Failure My critical care processes included: Assessment & monitoring of V/S, Initial and Re-exams, Data Review/Interpretation, Coordinating Care, Medication Orders and management, Documentation Medical Decision Making - Michele Inquiry Pt receiving controlled substance: No Vital Signs: 10/01/19 12:53 10/01/19 15:00 10/01/19 15:44 Temperature 99 F Temperature Source Oral Pulse Rate [Left Radial] 124 H 104 H 103 H Respiratory Rate 40 H 30 H Blood Pressure [Right Arm] 155/107 H 118/76 127/79 Blood Pressure Mean [Right Arm] 123 90 95 Blood Pressure Position [Right Arm] Sitting Sitting Sitting 02 Sat by Pulse Oximetry 89 L 96 96 Oxygen Delivery Method Nasal Cannula Nasal Cannula Oxygen Flow Rate (LPM) 2.5 3 - Lab Data Lab Results 10/01/19 12:30: WBC 32.3 H*, RBC 4.61, Hgb 13.1, Hct 43.3, MCV 93.9, MCH 28.4, MCHC 30.3 L, RDW 15.0, Plt Count 751 H, MPV 8.4, Neut % (Auto) 82.6 H, Lymph % (Auto) 8.7 L, [place] % (Auto) 7.9, Eos % (Auto) 0.3, Baso % (Auto) 0.6, Neut # (Auto) 26.5 H, Lymph # (Auto) 2.8, [place] # (Auto) 2.5 H, Eos # (Auto) 0.1, Baso # (Auto) 0.2, Total Counted 100, Neutrophils % (Manual) 85 H, Lymphocytes % (Manual) 9 L, Monocytes % (Manual) 6, Platelet Estimate Moderate increase 10/01/19 12:58: Specimen Source Right brachial, O2 % 2lpm nc, ABG pH 7.43, ABG pCO2 39.5, ABG pO2 55.9 L, ABG HCO3 25.8, ABG Total CO2 27.0, ABG O2 Saturation 91, ABG Base Excess 1.5, Olegario Test Non applicable 10/01/19 13:15: Urine Color Dk yellow, Urine Appearance Sl cloudy, Urine pH 7.5, Ur Specific [place] 1.020, Urine Protein 2+, Urine Glucose (UA) Negative, Urine Ketones Negative, Urine Blood Negative, Urine Nitrate Positive, Urine Bilirubin Negative, Urine Urobilinogen 1.0, Ur Leukocyte Esterase 1+ A, Urine RBC None, Urine WBC 10-20, Ur Squamous Epith Cells 10-20, Ur Transition Epith Cell Occ, Ur Renal Epithelial Cell Occasional, Urine Bacteria 2+ 10/01/19 13:35: Sodium 143, Potassium 3.7, Chloride 104, Carbon Dioxide 26, Anion Gap 16.7 H, BUN 15, Creatinine 0.60, Estimated Creat Clear 67, Estimated GFR 101, Est GFR ( Amer) 123, Glucose 123 H, Calcium 9.2, Total Bilirubin 0.6, AST 10 L, ALT 7 L, Alkaline Phosphatase 110, Troponin I < 0.02, Total Protein 8.1, Albumin 2.1 L, Globulin 6.0 H, Albumin/Globulin Ratio 0.4 L 10/01/19 13:35: Lactate 0.8 Result diagrams: 10/01/19 12:30 10/01/19 13:35 Orders (Tests/Meds): ED MEDICATIONS Generic Name Dose Route Start Last Admin Trade Name Freq PRN Reason Stop Dose Admin Sodium Chloride 1,000 mls @ 250 mls/hr 10/01/19 13:30 10/01/19 13:33 Sod Chlor 0.9% 1000ml Bag IV 10/31/19 13:29 250 mls/hr .Q4H PATIENCE Administration Cefepime HCl 2 gm/ Sodium 100 mls @ 100 mls/hr 10/01/19 15:00 10/01/19 15:13 Chloride IV 10/15/19 14:59 100 mls/hr Q12H PATIENCE Administration Protocol Levofloxacin/Dextrose 750 mg in 150 mls @ 100 mls/hr 10/01/19 14:15 10/01/19 15:25 Levofloxacin 750mg/150ml Premix IV 10/15/19 14:14 100 mls/hr 1100 PATIENCE Administration Protocol Vancomycin HCl 1,250 mg/ 250 mls @ 125 mls/hr 10/01/19 15:00 Sodium Chloride IV 10/15/19 14:59 Q12H PATIENCE Discontinued Medications Generic Name Dose Route Start Last Admin Trade Name Freq PRN Reason Stop Dose Admin Albuterol/Ipratropium 3 ml 10/01/19 13:00 10/01/19 13:00 Duoneb 3ml Neb IH 10/01/19 13:01 3 ml ONCE ONE Administration Methylprednisolone Sodium Succinate 125 mg 10/01/19 13:00 10/01/19 13:00 Solu-Medrol 125mg/2ml Vial IV 10/01/19 13:01 125 mg ONCE ONE Administration Miscellaneous 1 each 10/01/19 14:15 Vancomycin Consult Request NOTAPPLIC 10/02/19 02:13 CONSULT PHARMACY PATIENCE ORDERS Category Date Time Status Diarrhea 6-11 Panel, Cdiff PCR Stat Lab 10/01/19 13:05 Ordered Troponin I Q3H Lab 10/01/19 16:00 Ordered Troponin I Q3H Lab 10/01/19 19:00 Ordered Blood Culture Stat Micro 10/01/19 13:35 Received Urine Culture Stat Micro 10/01/19 13:15 Received - Radiology Data #1 Image(s): Chest Image Reviewed: Yes I reviewed the patient's radiology image, Yes I have reviewed radiologist's interpretation FINDINGS: The cardiomediastinal silhouette and pulmonary vascularity are within normal limits. Consolidation once again noted in the right lower lobe consistent with pneumonia may be slightly improved. There is COPD. Lower thoracic curvature convex left. Chronic changes are present in the left lung base. There remains prominence of the right hilum. Chest CT with contrast may provide further evaluation to exclude hilar mass with postobstructive process. No acute bony abnormalities. IMPRESSION: Right lower lobe pneumonia with prominent right hilum. Cannot exclude postobstructive process. Consider chest CT with contrast for further evaluation Dictated by: Olegario De La Cruz MD 10/01/2019 14:38 Electronically signed by Olegario De LaC ruz MD in [place] 10/01/2019 14:38 - CT Data CT Scan: Head, Abdomen, Pelvis, Chest Time Received: 15:[address] Reviewed: Yes: I have viewed the radiologist's interpretation Findings Narrative: PROCEDURE: CT CHEST WO CON CLINICAL INDICATION: fall, injury Possible right hilar mass with postobstructive pneumonitis, persistent right lower lobe pneumonia COMPARISON: CT CHEST WO CON from 08/30/2019 CT ABDOMEN PELVIS WO CON from 10/01/2019 TECHNIQUE: Axial images obtained with sagittal and coronal reformats. All CT scans at the facility use one or more dose reduction, viz: automated exposure control, ma/kV adjustment per patient size (including targeted exams where dose is matched to indication, i.e. head), or iterative reconstruction technique. Exam is limited without IV contrast FINDINGS: HEART AND MEDIASTINAL STRUCTURES: . mildly prominent precarinal lymph node once again noted. There remains mild prominence of the right hilum not significantly changed. This may only be due to vascularity however, 1 cannot exclude adenopathy or hilar mass. Suggest repeat exam with IV contrast. If there is true patient allergy then premedication can be performed LUNGS AND PLEURAL SPACES: There is marked narrowing of the right lower lobe bronchus as seen on series 4, image 42 this has developed since the previous exam. There could even be some fluid or debris within the right lower lobe bronchus. Bronchoscopy may provide further evaluation. There is rounded consolidation in the right lower lobe superiorly with more diffuse consolidation in the right lower lobe posteriorly and inferiorly with small right effusion. The pneumonia has shown some improvement in the lateral aspect of the right lower lobe. The there are some atelectatic changes in the left lower lobe. BONY STRUCTURES: No acute bony abnormalities apparent. UPPER ABDOMEN: Please see abdomen CT report ADDITIONAL FINDINGS: No other significant abnormalities. IMPRESSION: Persistent prominence of the right hilum which could be due to ectatic pulmonary vessels or hilar mass or adenopathy. There is severe narrowing of the right lower lobe bronchus. There may be some secretions distal to this region within the bronchus. There remains dense consolidation in the right lower lobe overall slightly improved compared to the previous exam with small right pleural effusion. Cannot exclude mass in the right infrahilar region. Follow-up is suggested Dictated by: Olegario De La Cruz MD 10/01/2019 14:52 Electronically signed by Olegario De La Cruz MD in [place] 10/01/2019 14:52 PROCEDURE: CT HEAD/BRAIN WO CON CLINICAL INDICATION: weak, falling to one side Altered mental status, weakness, falling, altered level of consciousness, confusion, disorientation the COMPARISON: XR CHEST PORTABLE from 10/01/2019 TECHNIQUE: Axial images obtained. All CT scans at the facility use one or more dose reduction, viz: automated exposure control, ma/kV adjustment per patient size (including targeted exams where dose is matched to indication, i.e. head), or iterative reconstruction technique. FINDINGS: No midline shift, mass effect, intracranial hemorrhage, hydrocephalus, or extra-axial fluid collection is evident. The calvarium has an unremarkable appearance. No mastoid effusion. No sinus air-fluid level. IMPRESSION: No acute intracranial finding Dictated by: Olegario De La Cruz MD 10/01/2019 14:42 Electronically signed by Olegario De La Cruz MD in [place] 10/01/2019 14:42 PROCEDURE: CT ABDOMEN PELVIS WO CON CLINICAL INDICATION: fall, abdo injury Fall with abdominal pain, injury, unresponsive COMPARISON: CT ABDOMEN PELVIS WO CON from 08/29/2019 TECHNIQUE: Axial images obtained with sagittal and coronal reformats. All CT scans at the facility use one or more dose reduction, viz: automated exposure control, ma/kV adjustment per patient size (including targeted exams where dose is matched to indication, i.e. head), or iterative reconstruction technique. FINDINGS: LOWER THORAX: Please see chest CT report ABDOMEN & PELVIS: The liver, spleen, and adrenal glands have an unremarkable appearance. There is severe lumbar scoliosis convex right. No renal or ureteral calculi or hydronephrosis. There is a moderate amount of retained colonic feces. No intestinal obstruction or free air. No focal inflammatory change. There is thickening of the subcutaneous tissues in the gluteal region bilaterally. A Sparks catheter is present. No evidence of appendicitis. Severe the lumbar scoliosis convex right with associated degenerative changes. There is an epidural catheter present with the tip in the lower thoracic region. The generator is in the left gluteal area IMPRESSION: 1. Constipation. 2. Severe lumbar scoliosis convex right with degenerative changes. 3. Subcutaneous thickening in the gluteal regions inferiorly on both sides. Dictated by: Olegario De La Cruz MD 10/01/2019 14:56 Electronically signed by Olegario De La Cruz MD in [place] 10/01/2019 14:56 - ECG Data Tracing #1 EKG interpreted by Jeison Cornell MD: Rhythm: sinus tachycardia Rate: 115 [place]: normal Ectopy: none Conduction: normal ST Segment Changes: none T Wave Changes: none Q Waves: none No evidence of acute ischemia or injury - Physician Consults Physician Consulted: Jasper Tony Time: 15:54 Reason -: Admission Comment/Response: Agrees to admit the patient to the hospital. We discussed the patient's clinical information, including history, exam, laboratory and radiology results and ED course. Per hospital procedure, I will write temporary bridge inpatient orders on the patient. Specific orders requested by the a dmitting physician: Continue current treatment Medical Decision Narrative: Recent admit here 08/29/2019 through 09/02/2019 for pneumonia right middle lobe. Sputum positive for Pseudomonas sensitive to Levaquin. Discharged on oral Levaquin. Treated in the hospital with cefepime and Levaquin. General Adult HPI - General Chief complaint: Weakness Stated complaint: Weakness Time Seen by Provider: 10/01/19 12:55 Mode of Arrival: EMS Limitations: No Limitations Description of Symptoms (Recalled from ER Triage Doc. by RN): TO ED PER SQUAD WITH C/O GENERALIZED WEAKNESS, PAIN LEGS, "FALLING OVER ALOT" PT C/O SOB. PT ALERT IV VP PUBLIC RELATIONS, BLOOD GLUCOSE 114 - History of Present Illness HPI narrative: Brought in by ambulance. They were called for possible stroke. Patient reportedly has been weak for several days. She fell last night, complains that she injured her right side. She points to her right lateral abdomen and costal margin. Reportedly saw her primary care doctor couple of days ago. Symptoms have persisted and worsened. She has had cough, shortness of breath, generalized weakness, subjective fever, diarrhea. Decreased urination. Denies vomiting. Denies chest pain. - Related Data Home Medications Medication Instructions Recorded Confirmed Albuterol Sulfate [Albuterol HFA 2 puffs IH Q4HP PRN 09/04/18 09/15/19 Inhaler] Fluticasone Furoate [Flonase 2 spray NS DAILY 09/04/18 09/15/19 Sensimist] Fluticasone/Salmeterol [Advair 1 puffs IH BID 09/04/18 09/15/19 100/50mcg diskus] Gabapentin [Neurontin 300mg 300 mg PO 5XDAY 09/04/18 09/15/19 capsule] Glycopyrrolate/Formoterol Fum 2 puffs IH BID 09/04/18 09/15/19 [Bevespi Aerosphere Inhaler] Linaclotide [Linzess] 145 mcg PO DAILY 09/04/18 09/15/19 SUMAtriptan succinate [Sumatriptan 100 mg PO NEEDED PRN 09/04/18 09/15/19 Succinate] Sertraline HCl [Zoloft 100mg 200 mg PO DAILY 09/04/18 09/15/19 tablet] Tamsulosin HCl [Flomax 0.4mg 0.4 mg PO HS 09/04/18 09/15/19 capsule] raNITIdine HCL [Ranitidine HCl] 150 mg PO BID 09/04/18 09/15/19 Alendronate Sodium 70 mg PO WEEKLY 08/30/19 09/15/19 Ipratropium/Albuterol Sulfate 3 ml IH QID 09/15/19 09/15/19 [Duoneb 3mL neb] levoFLOXacin [Levaquin 500mg 500 mg PO DAILY 09/15/19 09/15/19 tab] predniSONE [Deltasone 20mg 20 mg PO BID 09/15/19 09/15/19 tablet] Previous Rx's Medication Instructions Recorded Ondansetron [Zofran 4mg ODT] 4 mg SL Q8HP PRN tab.rapdis 09/04/18 Tizanidine HCl [Zanaflex 4mg 4 mg PO TIDP PRN tablet 09/04/18 tablet] Tramadol HCl [Ultram 50mg 50 mg PO QIDP PRN tablet 09/04/18 tablet] Trazodone HCl [Desyrel 50mg tablet] 50 mg PO HSP PRN tablet 09/04/18 Allergies Allergy/AdvReac Type Severity Reaction Status Date / Time iodine Allergy Unknown I-HIVES Verified 09/15/19 13:32 Penicillins Allergy Unknown I-HIVES Verified 09/15/19 13:32 [facility] History - Hepatitis A Screen Drug use history?: No High risk sexual behaviors?: No History of sexually transmitted infection?: No Currently employed?: No Childcare worker?: No Do you have indoor plumbing?: Yes Do you have electricity?: Yes Attestation statement:: This patient has been screened for Hepatitis A risk factors. I have reviewed the patient's past medical history: Yes Medical History: Reports:: Chronic Obstructive Pulmonary Disease (COPD), Depression, Gastroesophageal Reflux Disease(GERD), Hyperlipidemia, Hypertension Denies:: Cancer, Diabetes Mellitus Type 1, Diabetes Mellitus Type 2, Internal Pacemaker, MRSA, Seizures Other Medical History: Reports: Arthritis, Hypothyroidism, Other ([place], Home 02/ Mbatxfr-Ihvdg-Uzrlq disease, Implanted pain pump). Denies: Blood Transfusion Reaction Comment: Illnesses-COPD, chronic back pain, GERD, hypertension, [id number] Other Surgeries: Yes: Cholecystectomy, Tubal Ligation, Other (PAIN PUMP IMPLANT). No: Pacemaker Amputation: No Fractures: No Comment: Operations-cholecystectomy, multiple foot surgeries, bilateral breast cyst surgery, neck surgery - Social History Smoking Status: Former smoker Tobacco Type: cigarettes # Packs/Day (cigarettes): 2 Alcohol Intake: never Alcohol Intake Frequency:: other Occupational Status: other Housing: apartment Household Members: family - Psychiatric History Pschychiatric History:: Reports:: Depression Family Hx:: Asthma, Hyperlipidemia, Hypertension, Stroke ROS Obtained: Yes All systems reviewed & no additional complaints - Constitutional Constitutional: Reports fatigue, Reports fever(s), Reports weakness - Cardiovascular Cardiovascular: Denies chest pain - Respiratory Respiratory: Yes cough, Yes dyspnea - Gastrointestinal Gastrointestingal: Reports: diarrhea. Denies: abdominal pain, vomiting - Genitourinary Female Genitourinary: Reports as per HPI Physical Exam - General General appearance: alert Comment: Appears generally weak and ill - Head Head exam: atraumatic, normocephalic - Eye Eye exam: Present: normal appearance, EOMI - ENT ENT exam: Present: mucous membranes moist - Neck Neck exam: Present: normal inspection, trachea midline - Chest Chest inspection: Present: normal inspection, symmetric chest wall rise - Respiratory Respiratory exam: Present: other (Rhonchi). Absent: respiratory distress - Cardiovascular Cardiovascular exam: Present: tachycardia - Abdominal Exam Abdominal exam: Present: soft, tenderness. Absent: distention Abdominal tenderness: Present: diffuse Comment: No ecchymosis or abrasions seen - Extremities Exam Extremities exam: Present: other (Deformity of both feet, has Charcot feet. Feet cool, but good pedal pulses and capillary refill.) - Neurological Exam Neurological exam: Present: alert, CN II-XII intact, other (No lateralized deficits) - Psychiatric Psychiatric exam: Present: flat affect - Skin Skin exam: Present: pallor Stroke Alert/NIH Score - LOC Stroke Alert: No Level of Consciousness: Alert LOC Questions: Answers both correctly LOC Commands: Obeys both correctly - Facial/Visual Best Gaze: Normal Visual: No visual loss Facial Palsy: Normal - Motor Motor Response, Left Arm: No drift/Amputation/Fused Motor Response, Right Arm: No drift/Amputation/Fused Motor Response, Left Leg: No effort against gravity Motor Response, Right Leg: No effort against gravity - Sensory/Language Limb Ataxia: Absent Sensory: Normal Best Language: No aphasia Dysarthria: Normal speech, Intubated or Barrier present - NIH Score Stroke Risk Score: 6
[2019-10-01 13:07] LABS: Basophils # 0.2 K/mm3 (0-0.2); Basophils % 0.6 % (0.1-2.0); Eosinophils # 0.1 K/mm3 (0.0-0.4); Eosinophils % 0.3 % (0.1-12.0); Hematocrit 43.3 % (37.0-47.0); Hemoglobin 13.1 g/dL (12.2-16.2); Lymphocytes # 2.8 K/mm3 (0.7-4.5); Lymphocytes % 8.7 % (10-50); Mean Corpuscular HGB Conc 30.3 g/dL (31.8-35.4); Mean Corpuscular Volume 93.9 fl (81-99); Mean Platelet Volume 8.4 fl (7.4-10.4); Monocytes # 2.5 K/mm3 (0.1-1.0); Monocytes % 7.9 % (1.7-9.3); Neutrophils # 26.5 K/mm3 (1.8-7.8); Neutrophils % 82.6 % (37.0-80.0); Platelet Count 751 K/mm3 (142-424); Red Blood Count 4.61 M/mm3 (4.20-5.40)
[2019-10-01 13:10] LABS: White Blood Count 32.3 K/mm3 (4.8-10.8)
[2019-10-01 13:18] LABS: Microscopic, Urine URINE MICROSCOPIC (MICROSCOPIC)
[2019-10-01 13:19] LABS: Appearance,Urine SL CLOUDY (Clear); Bilirubin,Urine Negative (Negative); Blood, Urine Negative (Negative); Color,Urine DK YELLOW (Yellow); Glucose,Urine (UA) Negative (Negative); Ketones,Urine Negative (Negative); Leukocyte Esterase,Urine 1+ (Negative); PH,Urine 7.5 (5.0-8.5); Protein,Urine 2+ (Negative)
[2019-10-01 13:20] LABS: Lymphocytes % 9 % (10-50); Monocytes % 6 % (2-9); Neutrophils % 85 % (42-76); Total Cells Counted 100
[2019-10-01 13:24] LABS: Bacteria,Urine 2+ /lpf; Renal Epithelial Cells,Urine Occasional #/lpf (0); Transitional Epi Cells,Urine OCC #/lpf (0-3)
[2019-10-01 13:34] LABS: ABG Base Excess 1.5 mmol/L (-2.4-2.3); ABG HCO3 25.8 mmhg (22.0-26.0); ABG Oxygen Saturation 91 % (90-100); ABG PCO2 39.5 mmhg (35.0-45.0); ABG PH 7.43 mmol/L (7.35-7.45); ABG PO2 55.9 mmhg (80-100)
[2019-10-01 13:37] LABS: Allen's Test Non Applicable; Oxygen 2lpm nc %
[2019-10-01 14:00] LABS: Alanine Aminotransferase 7 U/L (9-52); Albumin Level 2.1 g/dL (3.4-5.0); Albumin/Globulin Ratio 0.4 (1.1-1.8); Alkaline Phosphatase 110 U/L (46-116); Anion Gap 16.7 mEq/L (5-15); Aspartate Amino Transferase 10 U/L (15-37); Bilirubin,Total 0.6 mg/dL (0.2-1.0); Blood Urea Nitrogen 15 mg/dL (7-18); Calcium 9.2 mg/dL (8.5-10.1); Carbon Dioxide 26 mmol/L (21.0-32.0); Chloride 104 mmol/L (98-107); Glucose 123 mg/dL (74-106); Sodium 143 mmol/L (137-145); Total Protein,Serum 8.1 g/dL (6.4-8.2)
--- NOTE | 2019-10-01 14:42 | Pharmacy Consult Notes ---
- Pharmacy Consult Date: 10/01/19 Time: 14:41 Referring provider: DR. SANCHES Reason for Consult:: VANCOMYCIN DOSING Allergies and ADEs:: Allergies Allergy/AdvReac Type Severity Reaction Status Date / Time iodine Allergy Unknown I-HIVES Verified 09/15/19 13:32 Penicillins Allergy Unknown I-HIVES Verified 09/15/19 13:32 Home Medications:: Home Medications Medication Instructions Recorded Confirmed Type Albuterol Sulfate [Albuterol HFA 2 puffs IH Q4HP PRN 09/04/18 09/15/19 History Inhaler] Fluticasone Furoate [Flonase 2 spray NS DAILY 09/04/18 09/15/19 History Sensimist] Fluticasone/Salmeterol [Advair 1 puffs IH BID 09/04/18 09/15/19 History 100/50mcg diskus] Gabapentin [Neurontin 300mg 300 mg PO 5XDAY 09/04/18 09/15/19 History capsule] Glycopyrrolate/Formoterol Fum 2 puffs IH BID 09/04/18 09/15/19 History [Bevespi Aerosphere Inhaler] Linaclotide [Linzess] 145 mcg PO DAILY 09/04/18 09/15/19 History Ondansetron [Zofran 4mg ODT] 4 mg SL Q8HP PRN tab.rapdis 09/04/18 09/15/19 Rx SUMAtriptan succinate [Sumatriptan 100 mg PO NEEDED PRN 09/04/18 09/15/19 History Succinate] Sertraline HCl [Zoloft 100mg 200 mg PO DAILY 09/04/18 09/15/19 History tablet] Tamsulosin HCl [Flomax 0.4mg 0.4 mg PO HS 09/04/18 09/15/19 History capsule] Tizanidine HCl [Zanaflex 4mg 4 mg PO TIDP PRN tablet 09/04/18 09/15/19 Rx tablet] Tramadol HCl [Ultram 50mg 50 mg PO QIDP PRN tablet 09/04/18 09/15/19 Rx tablet] Trazodone HCl [Desyrel 50mg tablet] 50 mg PO HSP PRN tablet 09/04/18 09/15/19 Rx raNITIdine HCL [Ranitidine HCl] 150 mg PO BID 09/04/18 09/15/19 History Alendronate Sodium 70 mg PO WEEKLY 08/30/19 09/15/19 History Ipratropium/Albuterol Sulfate 3 ml IH QID 09/15/19 09/15/19 History [Duoneb 3mL neb] levoFLOXacin [Levaquin 500mg 500 mg PO DAILY 09/15/19 09/15/19 History tab] predniSONE [Deltasone 20mg 20 mg PO BID 09/15/19 09/15/19 History tablet] Height: 1.65 m Weight: 72.575 kg Laboratory Results:: Laboratory Results - last 24 hr 10/01/19 12:30: WBC 32.3 H*, RBC 4.61, Hgb 13.1, Hct 43.3, MCV 93.9, MCH 28.4, MCHC 30.3 L, RDW 15.0, Plt Count 751 H, MPV 8.4, Neut % (Auto) 82.6 H, Lymph % (Auto) 8.7 L, [place] % (Auto) 7.9, Eos % (Auto) 0.3, Baso % (Auto) 0.6, Neut # (Auto) 26.5 H, Lymph # (Auto) 2.8, [place] # (Auto) 2.5 H, Eos # (Auto) 0.1, Baso # (Auto) 0.2, Total Counted 100, Neutrophils % (Manual) 85 H, Lymphocytes % (Manual) 9 L, Monocytes % (Manual) 6, Platelet Estimate Moderate increase 10/01/19 12:58: Specimen Source Right brachial, O2 % 2lpm nc, ABG pH 7.43, ABG pCO2 39.5, ABG pO2 55.9 L, ABG HCO3 25.8, ABG Total CO2 27.0, ABG O2 Saturation 91, ABG Base Excess 1.5, Olegario Test Non applicable 10/01/19 13:15: Urine Color Dk yellow, Urine Appearance Sl cloudy, Urine pH 7.5, Ur Specific [place] 1.020, Urine Protein 2+, Urine Glucose (UA) Negative, Urine Ketones Negative, Urine Blood Negative, Urine Nitrate Positive, Urine Bilirubin Negative, Urine Urobilinogen 1.0, Ur Leukocyte Esterase 1+ A, Urine RBC None, Urine WBC 10-20, Ur Squamous Epith Cells 10-20, Ur Transition Epith Cell Occ, Ur Renal Epithelial Cell Occasional, Urine Bacteria 2+ 10/01/19 13:35: Sodium 143, Potassium 3.7, Chloride 104, Carbon Dioxide 26, Anion Gap 16.7 H, BUN 15, Creatinine 0.60, Estimated Creat Clear 67, Estimated GFR 101, Est GFR ( Amer) 123, Glucose 123 H, Calcium 9.2, Total Bilirubin 0.6, AST 10 L, ALT 7 L, Alkaline Phosphatase 110, Troponin I < 0.02, Total Protein 8.1, Albumin 2.1 L, Globulin 6.0 H, Albumin/Globulin Ratio 0.4 L 10/01/19 13:35: Lactate 0.8 Medical History: Reports:: Chronic Obstructive Pulmonary Disease (COPD), Depression, Gastroesophageal Reflux Disease(GERD), Hyperlipidemia, Hypertension Denies:: Cancer, Diabetes Mellitus Type 1, Diabetes Mellitus Type 2, Internal Pacemaker, MRSA, Seizures Assessment and Plan - Assessment and plan all Dx Assessment and Plan for all problems:: BASED ON PATIENT'S FACTORS, RECOMMEND STARTING WITH VANCOMYCIN 1250 MG Q12H AT THIS TIME. PHARMACY WILL FOLLOW DAILY AND ADJUST APPROPRIATE.
--- NOTE | 2019-10-01 17:37 | History & Physical Report ---
*Admission Date: 10/01/19 *Chief complaint: SOA, fatigue, weakness and fall *History of present illness: Ms. De Leon is A chronically ill 64-year-old female well-known to our office who has chronic comorbidities consisting of Charcot deformity of her feet, end-stage gold 4D COPD, on chronic oxygen 2 to 3 L, and wheelchair-bound who presented to the ER due to weakness, fatigue, falls at home. Presentation is similar to her presentation last month however more severe due to her more profound weakness and more elevated leukocytosis and thrombocytosis. She denies any nausea or vomiting but complains of diarrhea. Of note was seen in our office earlier this week with some weakness and diarrhea but symptoms not as severe as on presentation today. Initial work-up in the ER concerning for sepsis with leukocytosis, tachycardia, tachypnea, findings of persistent pneumonia on chest imaging. Additionally she was found to have urine concerning for UTI. Family's concern prompting their call to EMS was stroke due to her weakness and hoarse voice however she had no focal findings/deficits. Initial imaging work- up in the ER showed low concern for stroke symptoms. She was admitted to medicine for further management of her respiratory failure and sepsis. Initiated on broad-spectrum antibiotics, IV fluids, breathing treatments. My assessment this afternoon after admission, she was noted to have a [place] placed with very dark cola colored urine. Complaining of some mild aches in her arms and legs. Daughter and son-in-law at bedside. We had a brief discussion about severity of her condition, worsening progression of disease with age admission, and CODE STATUS. Patient desires to continue to be full code. Expressed my concern at this time for her continued worsening debility and decline. 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 Denies: Blood Transfusion Reaction Other Surgeries: Yes: Cholecystectomy, Tubal Ligation, Other (PAIN PUMP IMPLANT). No: Pacemaker Amputation: No Fractures: No - *Social History Smoking Status: Former smoker Tobacco Type: cigarettes # Packs/Day (cigarettes): 2 Alcohol Intake: never Alcohol Intake Frequency:: other *Occupational Status:: other Housing: apartment Household Members: family *Travel in the last 8 weeks: None - Psychiatric History Pschychiatric History:: Reports:: Depression Family Hx:: Asthma, Hyperlipidemia, Hypertension, Stroke Review of Systems - Review of Systems Review of systems:: pertinent systems reviewed and negative unless documented below (10 point review of systems performed, pertinent positives and negatives reviewed per HPI) - *Neurologic Reports weakness Meds Home Medications Medication Instructions Recorded Confirmed Type Albuterol Sulfate [Albuterol HFA 2 puffs IH Q4HP PRN 09/04/18 09/15/19 History Inhaler] Fluticasone Furoate [Flonase 2 spray NS DAILY 09/04/18 09/15/19 History Sensimist] Fluticasone/Salmeterol [Advair 1 puffs IH BID 09/04/18 09/15/19 History 100/50mcg diskus] Gabapentin [Neurontin 300mg 300 mg PO 5XDAY 09/04/18 09/15/19 History capsule] Glycopyrrolate/Formoterol Fum 2 puffs IH BID 09/04/18 09/15/19 History [Bevespi Aerosphere Inhaler] Linaclotide [Linzess] 145 mcg PO DAILY 09/04/18 09/15/19 History Ondansetron [Zofran 4mg ODT] 4 mg SL Q8HP PRN tab.rapdis 09/04/18 09/15/19 Rx SUMAtriptan succinate [Sumatriptan 100 mg PO NEEDED PRN 09/04/18 09/15/19 History Succinate] Sertraline HCl [Zoloft 100mg 200 mg PO DAILY 09/04/18 09/15/19 History tablet] Tamsulosin HCl [Flomax 0.4mg 0.4 mg PO HS 09/04/18 09/15/19 History capsule] Tizanidine HCl [Zanaflex 4mg 4 mg PO TIDP PRN tablet 09/04/18 09/15/19 Rx tablet] Tramadol HCl [Ultram 50mg 50 mg PO QIDP PRN tablet 09/04/18 09/15/19 Rx tablet] Trazodone HCl [Desyrel 50mg tablet] 50 mg PO HSP PRN tablet 09/04/18 09/15/19 Rx raNITIdine HCL [Ranitidine HCl] 150 mg PO BID 09/04/18 09/15/19 History Alendronate Sodium 70 mg PO WEEKLY 08/30/19 09/15/19 History Ipratropium/Albuterol Sulfate 3 ml IH QID 09/15/19 09/15/19 History [Duoneb 3mL neb] levoFLOXacin [Levaquin 500mg 500 mg PO DAILY 09/15/19 09/15/19 History tab] predniSONE [Deltasone 20mg 20 mg PO BID 09/15/19 09/15/19 History tablet] Allergies Allergy/AdvReac Type Severity Reaction Status Date / Time iodine Allergy Unknown I-HIVES Verified 09/15/19 13:32 Penicillins Allergy Unknown I-HIVES Verified 09/15/19 13:32 Exam Vital signs and Labs for Last 24 Hours: Temp Pulse Resp BP Pulse Ox 97.5 F L 103 H 20 134/93 H 94 L 10/01/19 17:30 10/01/19 17:30 10/01/19 17:30 10/01/19 17:30 10/01/19 17:30 Laboratory Results - last 24 hr 10/01/19 12:30: WBC 32.3 H*, RBC 4.61, Hgb 13.1, Hct 43.3, MCV 93.9, MCH 28.4, MCHC 30.3 L, RDW 15.0, Plt Count 751 H, MPV 8.4, Neut % (Auto) 82.6 H, Lymph % (Auto) 8.7 L, [place] % (Auto) 7.9, Eos % (Auto) 0.3, Baso % (Auto) 0.6, Neut # (Auto) 26.5 H, Lymph # (Auto) 2.8, [place] # (Auto) 2.5 H, Eos # (Auto) 0.1, Baso # (Auto) 0.2, Total Counted 100, Neutrophils % (Manual) 85 H, Lymphocytes % (Manual) 9 L, Monocytes % (Manual) 6, Platelet Estimate Moderate increase 10/01/19 12:58: Specimen Source Right brachial, O2 % 2lpm nc, ABG pH 7.43, ABG pCO2 39.5, ABG pO2 55.9 L, ABG HCO3 25.8, ABG Total CO2 27.0, ABG O2 Saturation 91, ABG Base Excess 1.5, Olegario Test Non applicable 10/01/19 13:15: Urine Color Dk yellow, Urine Appearance Sl cloudy, Urine pH 7.5, Ur Specific [place] 1.020, Urine Protein 2+, Urine Glucose (UA) Negative, Urine Ketones Negative, Urine Blood Negative, Urine Nitrate Positive, Urine Bilirubin Negative, Urine Urobilinogen 1.0, Ur Leukocyte Esterase 1+ A, Urine RBC None, Urine WBC 10-20, Ur Squamous Epith Cells 10-20, Ur Transition Epith Cell Occ, Ur Renal Epithelial Cell Occasional, Urine Bacteria 2+ 10/01/19 13:35: Sodium 143, Potassium 3.7, Chloride 104, Carbon Dioxide 26, Anion Gap 16.7 H, BUN 15, Creatinine 0.60, Estimated Creat Clear 67, Estimated GFR 101, Est GFR ( Amer) 123, Glucose 123 H, Calcium 9.2, Total Bilirubin 0.6, AST 10 L, ALT 7 L, Alkaline Phosphatase 110, Troponin I < 0.02, Total Protein 8.1, Albumin 2.1 L, Globulin 6.0 H, Albumin/Globulin Ratio 0.4 L 10/01/19 13:35: Lactate 0.8 10/01/19 16:29: Troponin I < 0.02 I & O for Last 24 hours: Intake & Output 09/28/19 09/29/19 09/30/19 10/01/19 23:59 23:59 23:59 23:59 Weight 72.575 kg - Constitutional moderate distress, cachectic (Prominent ribs and clavicles, bitemporal wasting) - *Routine HEENT Exam Head: Present: normocephalic Eye: Present: EOMI, PERRL ENT: Present: mucous membranes dry - *Routine Neck Exam Present: supple. Absent: lymphadenopathy - *Routine Respiratory Exam Present: diminished air movement Comments: Poor air movement bilaterally, coarse crackles right posterior lung field. Absent breath sounds in bases - *Routine Cardiovascular Exam Present: RRR. Absent: murmur - *Routine Abdominal Exam Present: soft, normoactive bowel sounds, tenderness (Use nonfocal) - *Routine Extremities Exam Present: edema Comments: Pale, prominent Vnioygt-Omxeu-Yzvga deformity of feet bilaterally, loss of muscle mass, feet cool bilaterally, pulses weak in distal legs, 2+ edema to knees - *Routine Skin Exam Present: warm (On upper extremities and torso). Absent: rash - *Routine Neurological Exam Present: alert, oriented X3. Absent: altered mental status Assessment and Plan (1) Healthcare-associated pneumonia Current visit: Yes Status: Acute Category: Medical Code(s): J18.9 - Pneumonia, unspecified organism (2) Respiratory failure with hypoxia Current visit: Yes Status: Acute Qualifiers: Chronicity: acute Qualified Code(s): J96.01 - Acute respiratory failure with hypoxia Category: Medical Code(s): J96.91 - Respiratory failure, unspecified with hypoxia (3) Sepsis Current visit: Yes Status: Acute Qualifiers: Sepsis type: sepsis due to unspecified organism Sepsis acute organ dysfunction status: without acute organ dysfunction Qualified Code(s): A41.9 - Sepsis, unspecified organism Category: Medical Code(s): A41.9 - Sepsis, unspecified organism (4) Urinary tract infection Current visit: Yes Status: Acute Qualifiers: Urinary tract infection type: site unspecified Hematuria presence: without hematuria Qualified Code(s): N39.0 - Urinary tract infection, site not specified Category: Medical Code(s): N39.0 - Urinary tract infection, site not specified (5) Thrombocytosis Current visit: Yes Status: Acute Category: Medical Code(s): D47.3 - Essential (hemorrhagic) thrombocythemia (6) Hypoalbuminemia Current visit: Yes Status: Acute Category: Medical Code(s): E88.09 - Other disorders of plasma-protein metabolism, not elsewhere classified (7) Acute and chronic respiratory failure Current visit: Yes Status: Acute Category: Medical Code(s): J96.20 - Acute and chronic respiratory failure, unspecified whether with hypoxia or hypercapnia - Assessment and plan all Dx Assessment and Plan for all problems:: 64-year-old with end-stage COPD Gold stage IVd who presents with acute on chronic hypoxemic respiratory failure due to healthcare acquired pneumonia. Additionally found to have UTI, market leukocytosis, market thrombocytosis, meeting criteria for sepsis. Initiated on broad-spectrum antibiotics, IV fluids, breathing treatments. Given cola colored urine, will obtain CK to assess for rhabdomyolysis in the setting of patient's weakness, immobility, and sepsis. Further management pending results. Patient is critically ill and I am concerned she has limited insight into the extent of her respiratory failure both chronic and acute as well as her long-term prognosis. Anticipate she will need several days of admission with IV antibiotics and aggressive pulmonary toilet before she is stable for discharge from the acute setting.
[2019-10-01 21:44] LABS: Anion Gap 16.3 mEq/L (5-15); Calcium 9.1 mg/dL (8.5-10.1)
--- NOTE | 2019-10-02 06:59 | Progress Note ---
Internal Medicine - PN: Subj *Date: 10/02/19 *Time: 08:35 Interval history: Pt had Bedside swallow performed overnight, choked on water. Otherwise remained hemodynamically overnight. No CP, Confusion, Emesis. pleasant but weak this morning. Had extensive discussion this morning about patient's clinical status, progression of her COPD, end-stage status of her COPD, and recurring pneumonia. Patient seems to have good insight about the progression of her disease. We discussed how her daughter who was present yesterday does not seem to fully understand how bad patient's COPD is. Patient's voice weak on exam this morning. Awaiting speech eval. Afebrile overnight. Blood pressure has been gradually increasing with no history of antihypertensive therapy at home Exam Vital signs and Labs for Last 24 Hours: Temp Pulse Resp BP Pulse Ox 97.6 F 104 H 18 140/84 90 L 10/02/19 04:00 10/02/19 05:51 10/02/19 04:00 10/02/19 04:00 10/02/19 05:51 Laboratory Results - last 24 hr 10/01/19 12:30: WBC 32.3 H*, RBC 4.61, Hgb 13.1, Hct 43.3, MCV 93.9, MCH 28.4, MCHC 30.3 L, RDW 15.0, Plt Count 751 H, MPV 8.4, Neut % (Auto) 82.6 H, Lymph % (Auto) 8.7 L, [place] % (Auto) 7.9, Eos % (Auto) 0.3, Baso % (Auto) 0.6, Neut # (Auto) 26.5 H, Lymph # (Auto) 2.8, [place] # (Auto) 2.5 H, Eos # (Auto) 0.1, Baso # (Auto) 0.2, Total Counted 100, Neutrophils % (Manual) 85 H, Lymphocytes % (Manual) 9 L, Monocytes % (Manual) 6, Platelet Estimate Moderate increase 10/01/19 12:58: Specimen Source Right brachial, O2 % 2lpm nc, ABG pH 7.43, ABG pCO2 39.5, ABG pO2 55.9 L, ABG HCO3 25.8, ABG Total CO2 27.0, ABG O2 Saturation 91, ABG Base Excess 1.5, Olegario Test Non applicable 10/01/19 13:15: Urine Color Dk yellow, Urine Appearance Sl cloudy, Urine pH 7.5, Ur Specific [place] 1.020, Urine Protein 2+, Urine Glucose (UA) Negative, Urine Ketones Negative, Urine Blood Negative, Urine Nitrate Positive, Urine Bilirubin Negative, Urine Urobilinogen 1.0, Ur Leukocyte Esterase 1+ A, Urine RBC None, Urine WBC 10-20, Ur Squamous Epith Cells 10-20, Ur Transition Epith Cell Occ, Ur Renal Epithelial Cell Occasional, Urine Bacteria 2+ 10/01/19 13:35: Sodium 143, Potassium 3.7, Chloride 104, Carbon Dioxide 26, Anion Gap 16.7 H, BUN 15, Creatinine 0.60, Estimated Creat Clear 67, Estimated GFR 101, Est GFR ( Amer) 123, Glucose 123 H, Calcium 9.2, Total Bilirubin 0.6, AST 10 L, ALT 7 L, Alkaline Phosphatase 110, Troponin I < 0.02, Total Protein 8.1, Albumin 2.1 L, Globulin 6.0 H, Albumin/Globulin Ratio 0.4 L 10/01/19 13:35: Lactate 0.8 10/01/19 16:29: Troponin I < 0.02 10/01/19 19:16: Troponin I < 0.02 10/01/19 21:07: Sodium 145, Potassium 3.3 L, Chloride 108 H, Carbon Dioxide 24, Anion Gap 16.3 H, BUN 15, Creatinine 0.58, Estimated Creat Clear 67, Estimated GFR 105, Est GFR ( Amer) 127, Glucose 116 H, Calcium 9.1, Total Creatine Kinase 13 L I & O for Last 24 hours: Intake & Output 09/29/19 09/30/19 10/01/19 10/02/19 23:59 23:59 23:59 23:59 Intake Total 1332 / 1332 Output Total 500 / 500 Balance 832 / 832 Weight 72.575 kg 72.575 kg Microbiology Reports for the Last 24 Hours: Microbiology 10/01/19 13:35 Blood Blood Culture - Preliminary 10/01/19 13:35 Blood Blood Culture - Preliminary 10/01/19 23:47 Sputum - Expectorated Sputum Gram Stain - Final Narrative: - Constitutional mild distress, cachectic (Prominent ribs and clavicles, bitemporal wasting) - *Routine HEENT Exam Head: Present: normocephalic Eye: Present: EOMI, PERRL ENT: Present: mucous membranes dry - *Routine Neck Exam Present: supple. Absent: lymphadenopathy - *Routine Respiratory Exam Present: diminished air movement, accessory muscle use Comments: Poor air movement bilaterally, coarse crackles right posterior lung field. Absent breath sounds in bases - *Routine Cardiovascular Exam Present: tachycardia, regular rhythm. Absent: murmur - *Routine Abdominal Exam Present: soft, normoactive bowel sounds, tenderness (Use nonfocal) - *Routine Extremities Exam Present: edema Comments: Pale, prominent Cnihdnm-Sutek-Mkzir deformity of feet bilaterally, loss of muscle mass, feet cool bilaterally, pulses weak in distal legs, interval improvement in edema to knees - *Routine Skin Exam Present: warm (On upper extremities and torso). Absent: rash - *Routine Neurological Exam Present: alert, oriented X3. Absent: altered mental status Assessment and Plan (1) Healthcare-associated pneumonia Current visit: Yes Status: Acute Category: Medical Code(s): J18.9 - Pneumonia, unspecified organism (2) Respiratory failure with hypoxia Current visit: Yes Status: Acute Qualifiers: Chronicity: acute Qualified Code(s): J96.01 - Acute respiratory failure with hypoxia Category: Medical Code(s): J96.91 - Respiratory failure, unspecified with hypoxia (3) Sepsis Current visit: Yes Status: Acute Qualifiers: Sepsis type: sepsis due to unspecified organism Sepsis acute organ dysfunction status: without acute organ dysfunction Qualified Code(s): A41.9 - Sepsis, unspecified organism Category: Medical Code(s): A41.9 - Sepsis, unspecified organism (4) Urinary tract infection Current visit: Yes Status: Acute Qualifiers: Urinary tract infection type: site unspecified Hematuria presence: without hematuria Qualified Code(s): N39.0 - Urinary tract infection, site not specified Category: Medical Code(s): N39.0 - Urinary tract infection, site not specified (5) Thrombocytosis Current visit: Yes Status: Acute Category: Medical Code(s): D47.3 - Essential (hemorrhagic) thrombocythemia (6) Hypoalbuminemia Current visit: Yes Status: Acute Category: Medical Code(s): E88.09 - Other disorders of plasma-protein metabolism, not elsewhere classified (7) Acute and chronic respiratory failure Current visit: Yes Status: Acute Category: Medical Code(s): J96.20 - Acute and chronic respiratory failure, unspecified whether with hypoxia or hypercapnia (8) Advanced care planning/counseling discussion Current visit: Yes Status: Acute Category: Medical Code(s): Z71.89 - Other specified counseling Had extensive discussion with patient today about the prognosis of her end-stage COPD, the progression of her severe end-stage COPD, and assessed her understanding of how this impacts her quality of life and duration of life. There is no family at bedside on this morning's discussion however, offered to come back later and have repeat discussion if needed that included patient's daughter who is her POA. Patient exhibited good insight into the extent of her disease and understanding of the continued decline she has shown with worsening weakness, poor p.o. intake, malnutrition, and worsening respiratory distress. Discussion included things that are important to the patient which are quality of life measures such as being at home and being able to eat if she feels like it. At this time she wants to continue treating her current illness as best we can and does not desire to change CODE STATUS. Discussed the potential benefits hospice/palliative care can offer in the disease state such as hers. She is open to talking with them about resources and the care they may be able to provide. Spent greater than 20 minutes in discussion and direct patient care this morning in regard to the subject. - Assessment and plan all Dx Assessment and Plan for all problems:: Seriously ill 64-year-old female with end-stage COPD and acute on chronic hy poxemic respiratory failure with healthcare acquired pneumonia. Continue broad- spectrum antibiotics and aggressive pulmonary toilet. Met sepsis criteria on admission. Kidney function showing slight improvement and improvement in her elevated white count. Bedside swallow performed showing concern for coughing. Speech eval placed today, further recs pending and appreciated. Patient otherwise hemodynamically stable at this time. Blood pressure has been steadily increasing, will initiate as needed antihypertensives for severe elevation in blood pressure with parameters set per orders. Continues to require inpatient management, prognosis poor.
[2019-10-02 07:00] LABS: Basophils % 0.2 % (0.1-2.0); Hematocrit 38.5 % (37.0-47.0); Hemoglobin 11.8 g/dL (12.2-16.2); Lymphocytes # 1.8 K/mm3 (0.7-4.5); Lymphocytes % 7.4 % (10-50); Mean Corpuscular HGB Conc 30.7 g/dL (31.8-35.4); Mean Corpuscular Volume 94.3 fl (81-99); Mean Platelet Volume 8.1 fl (7.4-10.4); Monocytes # 0.8 K/mm3 (0.1-1.0); Monocytes % 3.5 % (1.7-9.3); Neutrophils # 21.6 K/mm3 (1.8-7.8); Platelet Count 693 K/mm3 (142-424); Red Blood Count 4.08 M/mm3 (4.20-5.40); Red Cell Distribution Width 15.2 % (11.5-17.5); White Blood Count 24.3 K/mm3 (4.8-10.8)
[2019-10-02 07:05] LABS: Anion Gap 18.2 mEq/L (5-15); Calcium 9.1 mg/dL (8.5-10.1)
--- NOTE | 2019-10-02 07:55 | Pharmacy Consult Notes ---
[facility] Pharmacy VTE Monitoring - Patient Demographics Admission date: 10/01/19 Report Date: 10/02/19 Time: 07:55 Allergies/Adverse Reactions: Patient Allergies iodine Allergy (Unknown, Verified 09/15/19 13:32) I-HIVES Penicillins Allergy (Unknown, Verified 09/15/19 13:32) I-HIVES Height: 72.58 m Weight: 72.575 kg Patient Problems: Current Active Problems Healthcare-associated pneumonia (Acute) Urinary tract infection (Acute) Sepsis (Acute) Respiratory failure with hypoxia (Acute) Thrombocytosis (Acute) Hypoalbuminemia (Acute) Acute and chronic respiratory failure (Acute) - VTE Risk Labs: VTE Related Lab Results Hgb 11.8 g/dL (12.2-16.2) L 10/02/19 06:25 Hct 38.5 % (37.0-47.0) 10/02/19 06:25 Plt Count 693 K/mm3 (142-424) H 10/02/19 06:25 BUN 14 mg/dL (7-18) 10/02/19 06:25 Creatinine 0.60 mg/dL (0.55-1.02) 10/02/19 06:25 Estimated Creat Clear 67 mL/min (50-200) 10/02/19 06:25 Was VTE Risk Assessment Performed: Yes VTE Score: 4 VTE Risk Level: Low Risk - Prophylaxis VTE Prophylaxis Ordered?: Yes Types of VTE Prophylaxis: TEDS Knee High Location of Applied Device: Bilateral Lower Extremeties - VTE Diagnosis Confirmed Treatment or plan recommended: Continue Current Treatment
[2019-10-02 09:46] LABS: Lymphocytes % 7 % (10-50); Monocytes % 4 % (2-9); Neutrophils % 89 % (42-76); RBC Morphology Normal; Total Cells Counted 100
--- NOTE | 2019-10-03 09:30 | Pharmacy Consult Notes ---
- Pharmacy Consult Date: 10/03/19 Time: 09:29 Referring provider: DR. FERRO Reason for Consult:: VANCOMYCIN TROUGH LEVEL AND DOSE CHANGE Allergies and ADEs:: Allergies Allergy/AdvReac Type Severity Reaction Status Date / Time iodine Allergy Unknown I-HIVES Verified 09/15/19 13:32 Penicillins Allergy Unknown I-HIVES Verified 09/15/19 13:32 Home Medications:: Home Medications Medication Instructions Recorded Confirmed Type Fluticasone Furoate [Flonase 2 spray NS DAILY 09/04/18 10/02/19 History Sensimist] Fluticasone/Salmeterol [Advair 1 puffs IH BID 09/04/18 10/02/19 History 100/50mcg diskus] Gabapentin [Neurontin 300mg 300 mg PO 5XDAY 09/04/18 10/02/19 History capsule] Glycopyrrolate/Formoterol Fum 2 puffs IH BID 09/04/18 10/02/19 History [Bevespi Aerosphere Inhaler] Linaclotide [Linzess] 145 mcg PO DAILY 09/04/18 10/02/19 History SUMAtriptan succinate [Sumatriptan 100 mg PO NEEDED PRN 09/04/18 10/02/19 History Succinate] Sertraline HCl [Zoloft 100mg 200 mg PO DAILY 09/04/18 10/02/19 History tablet] Tramadol HCl [Ultram 50mg 50 mg PO QIDP PRN tablet 09/04/18 10/02/19 Rx tablet] Trazodone HCl [Desyrel 50mg tablet] 50 mg PO HSP PRN tablet 09/04/18 10/02/19 Rx raNITIdine HCL [Ranitidine HCl] 150 mg PO BID 09/04/18 10/02/19 History Acetaminophen [Tylenol 500mg 500 mg PO NEEDED PRN 10/02/19 10/02/19 History tablet] Aspirin [Aspirin 81mg EC Tab] 81 mg PO DAILY 10/02/19 10/02/19 History Calcium Carbonate/Vitamin D3 1 tab PO DAILY 10/02/19 10/02/19 History [Calcium 600-Vit D3 200 Tablet] Glycopyrrolate/Formoterol Fum 10.7 gm IH DAILY 10/02/19 10/02/19 History [Bevespi Aerosphere Inhaler] Pantoprazole Sodium [Protonix 40mg 40 mg PO DAILY 10/02/19 10/02/19 History tablet] Albuterol Sulfate [Albuterol HFA 2 puffs IH Q6HP PRN 10/03/19 10/03/19 History Inhaler] Height: 1.65 m Weight: 47.287 kg Laboratory Results:: Laboratory Results - last 24 hr 10/02/19 06:25: Total Counted 100, Neutrophils % (Manual) 89 H, Lymphocytes % (Manual) 7 L, Monocytes % (Manual) 4, Platelet Estimate Marked increase, RBC Morphology Normal 10/03/19 02:40: Vancomycin Trough 20.9 H Medical History: Reports:: Chronic Obstructive Pulmonary Disease (COPD), Depression, Gastroesophageal Reflux Disease(GERD), Hyperlipidemia, Hypertension Denies:: Cancer, Diabetes Mellitus Type 1, Diabetes Mellitus Type 2, Internal Pacemaker, MRSA, Seizures Assessment and Plan (1) Healthcare-associated pneumonia Current visit: Yes Status: Acute Category: Medical Code(s): J18.9 - Pneumonia, unspecified organism (2) Respiratory failure with hypoxia Current visit: Yes Status: Acute Qualifiers: Chronicity: acute Qualified Code(s): J96.01 - Acute respiratory failure with hypoxia Category: Medical Code(s): J96.91 - Respiratory failure, unspecified with hypoxia (3) Sepsis Current visit: Yes Status: Acute Qualifiers: Sepsis type: sepsis due to unspecified organism Sepsis acute organ dysfunction status: without acute organ dysfunction Qualified Code(s): A41.9 - Sepsis, unspecified organism Category: Medical Code(s): A41.9 - Sepsis, unspecified organism (4) Urinary tract infection Current visit: Yes Status: Acute Qualifiers: Urinary tract infection type: site unspecified Hematuria presence: without hematuria Qualified Code(s): N39.0 - Urinary tract infection, site not specified Category: Medical Code(s): N39.0 - Urinary tract infection, site not specified (5) Thrombocytosis Current visit: Yes Status: Acute Category: Medical Code(s): D47.3 - Essential (hemorrhagic) thrombocythemia (6) Hypoalbuminemia Current visit: Yes Status: Acute Category: Medical Code(s): E88.09 - Other disorders of plasma-protein metabolism, not elsewhere classified (7) Acute and chronic respiratory failure Current visit: Yes Status: Acute Category: Medical Code(s): J96.20 - Acute and chronic respiratory failure, unspecified whether with hypoxia or hypercapnia (8) Advanced care planning/counseling discussion Current visit: Yes Status: Acute Category: Medical Code(s): Z71.89 - Other specified counseling - Assessment and plan all Dx Assessment and Plan for all problems:: BASED ON PATIENT'S VANCOMYCIN TROUGH LEVEL OF 20.9 MCG/ML OVERNIGHT, RECOMMEND CHANGING DOSING INTERVAL FROM Q12H TO Q18H AT THIS TIME.
--- NOTE | 2019-10-03 15:40 | Progress Note ---
Internal Medicine - PN: Subj *Date: 10/03/19 *Time: 08:20 Interval history: Ms. De Leon did well overnight. Breathing marginally more comfortably this morning. Sitting upright in bed with voice a little stronger today. Afebrile, hemodynamically stable. Asking for stool softener she has not had a bowel movement in the past 2 days. Still has Sparks in. Getting up with physical therapy to bedside chair. Has walker at this time though she has limited mobility with it. Nu[place] chest pain, nausea, confusion, headache. Exam Vital signs and Labs for Last 24 Hours: Temp Pulse Resp BP Pulse Ox 98.2 F 76 18 140/83 94 L 10/03/19 12:00 10/03/19 12:00 10/03/19 12:00 10/03/19 12:00 10/03/19 12:00 Laboratory Results - last 24 hr 10/01/19 13:15: Urine Color Dk yellow, Urine Appearance Sl cloudy, Urine pH 7.5, Ur Specific Pala 1.020, Urine Protein 2+, Urine Glucose (UA) Negative, Urine Ketones Negative, Urine Blood Negative, Urine Nitrate Positive, Urine Bilirubin Negative, Urine Urobilinogen 1.0, Ur Leukocyte Esterase 1+ A, Urine RBC None, Urine WBC 10-20, Ur Squamous Epith Cells 10-20, Ur Transition Epith Cell Occ, Ur Renal Epithelial Cell Occasional, Urine Bacteria 2+ 10/03/19 02:40: Vancomycin Trough 20.9 H I & O for Last 24 hours: Intake & Output 09/30/19 10/01/19 10/02/19 10/03/19 23:59 23:59 23:59 23:59 Intake Total 4202 / 4202 840 / 840 Output Total 900 / 1350 450 / 450 Balance 3302 / 2852 390 / 390 Weight 72.575 kg 73 kg 47.287 kg Microbiology Reports for the Last 24 Hours: Microbiology 10/01/19 13:15 Urine,Catheterized Urine Culture - Preliminary Gram Positive Cocci 10/01/19 13:35 Blood Blood Culture - Preliminary Gram Positive Cocci 10/01/19 13:35 Blood Blood Culture - Preliminary Gram Positive Cocci 10/01/19 23:47 Sputum - Expectorated Sputum Gram Stain - Final 10/01/19 23:47 Sputum - Expectorated Sputum Sputum Culture - Preliminary Narrative: - Constitutional mild distress though interval improvement, cachectic (Prominent ribs and clavicles, bitemporal wasting) - *Routine HEENT Exam Head: Present: normocephalic Eye: Present: EOMI, PERRL ENT: Present: mucous membranes moist - *Routine Neck Exam Present: supple. Absent: lymphadenopathy - *Routine Respiratory Exam Present: Marginal improvement in air movement bilaterally, still having accessory muscle use, crackles persistent right posterior lung field. Diminished in bases. - *Routine Cardiovascular Exam Present: Regular rate, regular rhythm. Absent: murmur - *Routine Abdominal Exam Present: soft, normoactive bowel sounds, tenderness (diffuse nonfocal) - *Routine Extremities Exam Present: edema Comments: Pale, prominent Ppprjef-Sdomn-Yuboz deformity of feet bilaterally, loss of muscle mass, feet cool bilaterally, pulses weak in distal legs, interval improvement in edema to knees - *Routine Skin Exam Present: warm (On upper extremities and torso). Absent: rash - *Routine Neurological Exam Present: alert, oriented X3. Absent: altered mental status Assessment and Plan (1) Healthcare-associated pneumonia Current visit: Yes Status: Acute Category: Medical Code(s): J18.9 - Pneumonia, unspecified organism (2) Respiratory failure with hypoxia Current visit: Yes Status: Acute Qualifiers: Chronicity: acute Qualified Code(s): J96.01 - Acute respiratory failure with hypoxia Category: Medical Code(s): J96.91 - Respiratory failure, unspecified with hypoxia (3) Sepsis Current visit: Yes Status: Acute Qualifiers: Sepsis type: sepsis due to unspecified organism Sepsis acute organ dysfunction status: without acute organ dysfunction Qualified Code(s): A41.9 - Sepsis, unspecified organism Category: Medical Code(s): A41.9 - Sepsis, unspecified organism (4) Urinary tract infection Current visit: Yes Status: Acute Qualifiers: Urinary tract infection type: site unspecified Hematuria presence: without hematuria Qualified Code(s): N39.0 - Urinary tract infection, site not specified Category: Medical Code(s): N39.0 - Urinary tract infection, site not specified (5) Thrombocytosis Current visit: Yes Status: Acute Category: Medical Code(s): D47.3 - Essential (hemorrhagic) thrombocythemia (6) Hypoalbuminemia Current visit: Yes Status: Acute Category: Medical Code(s): E88.09 - Other disorders of plasma-protein metabolism, not elsewhere classified (7) Acute and chronic respiratory failure Current visit: Yes Status: Acute Category: Medical Code(s): J96.20 - Acute and chronic respiratory failure, unspecified whether with hypoxia or hypercapnia (8) Advanced care planning/counseling discussion Current visit: Yes Status: Acute Category: Medical Code(s): Z71.89 - Other specified counseling - Assessment and plan all Dx Assessment and Plan for all problems:: Overall patient showing clinical improvement though still remains seriously ill. Good progress toward patient's baseline status. Will initiate bowel regimen today. At baseline oxygen requirement today. Discontinue Sparks. Continue to work with physical therapy and get up to bedside chair. Plan to transition oral antibiotics tomorrow to complete course. Continue to advance diet today. Anticipate patient being medically stable and ready for discharge tomorrow. Condition serious, prognosis poor. Discussed hospice again with patient today, she is interested in pursuing hospice once she is home. We will finalize this t omorrow as we discussed discharge plan in the morning.
[2019-10-03 16:16] LABS: Anion Gap 13.3 mEq/L (5-15); Calcium 8.7 mg/dL (8.5-10.1)
--- NOTE | 2019-10-04 07:49 | Electrocardiograph Report ---
APPROVED REPORT Exam: Resting ECG HR:115 bpm ECG Measurements Heart Rate 115 AXES HI 120 P 51 QRSd 78 QRS 35 QT 350 T59 QTc 484 <Conclusion> Sinus tachycardia Otherwise normal ECG Electronically signed by : Neil Tony, 10/04/2019 07:49:27
[2019-10-04 08:00] LABS: Basophils # 0.1 K/mm3 (0-0.2); Basophils % 0.7 % (0.1-2.0); Hematocrit 41.3 % (37.0-47.0); Lymphocytes % 6.1 % (10-50); Mean Corpuscular HGB Conc 29.1 g/dL (31.8-35.4); Mean Corpuscular Volume 95.4 fl (81-99); Mean Platelet Volume 7.8 fl (7.4-10.4); Monocytes # 0.8 K/mm3 (0.1-1.0); Monocytes % 4.7 % (1.7-9.3); Neutrophils # 14.3 K/mm3 (1.8-7.8); Neutrophils % 88.5 % (37.0-80.0); Platelet Count 757 K/mm3 (142-424); Red Blood Count 4.33 M/mm3 (4.20-5.40); Red Cell Distribution Width 15.2 % (11.5-17.5); White Blood Count 16.1 K/mm3 (4.8-10.8)
[2019-10-04 08:07] LABS: Anion Gap 12.6 mEq/L (5-15)
[2019-10-04 08:59] LABS: Lymphocytes % 10 % (10-50); Monocytes % 4 % (2-9); Myelocytes % 2 (0-1); Neutrophils % 77 % (42-76); Total Cells Counted 100
[2019-10-04 09:00] LABS: Anisocytosis 1+; Hypochromasia 1+; Stomatocytes 1+
--- NOTE | 2019-10-04 16:35 | Progress Note ---
Internal Medicine - PN: Subj *Date: 10/04/19 *Time: 13:00 Interval history: Patient pleasant on interview today. Sitting in bedside chair on exam. Stable on 3 L nasal cannula oxygen. Afebrile. Blood pressure slightly elevated but not symptomatic. Tolerating fair p.o. intake of thickened liquids. Extensive discussion today about goals of care as she desires to go home with hospice but at this time remains full code. Discussed the extent of her disease, severity of her illness, terminal nature of her diagnosis. She stated understanding but is struggling with the weight of her illness at this time. Had a three-way conversation including her daughter Lorena who was on the phone during our talk. No nausea, vomiting, diarrhea. Still has some productive cough and is able to get phlegm up. Exam Vital signs and Labs for Last 24 Hours: Temp Pulse Resp BP Pulse Ox 97.9 F 85 16 160/88 H 95 10/04/19 15:53 10/04/19 15:53 10/04/19 15:53 10/04/19 15:53 10/04/19 15:53 Laboratory Results - last 24 hr 10/04/19 07:39: WBC 16.1 H D, RBC 4.33, Hgb 12.0 L, Hct 41.3, MCV 95.4, MCH 27.8, MCHC 29.1 L, RDW 15.2, Plt Count 757 H, MPV 7.8, Neut % (Auto) 88.5 H, Lymph % (Auto) 6.1 L, [place] % (Auto) 4.7, Eos % (Auto) 0.0 L, Baso % (Auto) 0.7, Neut # (Auto) 14.3 H, Lymph # (Auto) 1.0, [place] # (Auto) 0.8, Eos # (Auto) 0.0, Baso # (Auto) 0.1, Total Counted 100, Neutrophils % (Manual) 77 H, Band Neutrop hils % 5.0, Lymphocytes % (Manual) 10, Monocytes % (Manual) 4, Metamyelocytes % 2.0 H, Myelocytes % 2 H, Platelet Estimate Marked increase, Hypochromasia 1+, Anisocytosis 1+, Stomatocytes 1+ 10/04/19 07:39: Sodium 145, Potassium 3.6, Chloride 109 H, Carbon Dioxide 27, Anion Gap 12.6, BUN 18, Creatinine 0.69, Estimated Creat Clear 44, Estimated GFR 86, Est GFR ( Amer) 104, Glucose 137 H, Calcium 9.0 I & O for Last 24 hours: Intake & Output 10/01/19 10/02/19 10/03/19 10/04/19 23:59 23:59 23:59 23:59 Intake Total 4202 / 4202 1580 / 1580 960 / 960 Output Total 900 / 1350 450 / 450 Balance 3302 / 2852 1130 / 1130 960 / 960 Weight 72.575 kg 73 kg 47.287 kg Microbiology Reports for the Last 24 Hours: Microbiology 10/01/19 23:47 Sputum - Expectorated Sputum Gram Stain - Final 10/01/19 23:47 Sputum - Expectorated Sputum Sputum Culture - Final Normal Respiratory Kimberly 10/01/19 13:15 Urine,Catheterized Urine Culture - Final Staphylococcus epidermidis 10/01/19 13:35 Blood Blood Culture - Preliminary Streptococcus pneumoniae 10/01/19 13:35 Blood Blood Culture - Final Streptococcus pneumoniae Narrative: - Constitutional Baseline respiratory distress. In bedside chair on exam. Pleasant today. Chronically ill-appearing, cachectic (Prominent ribs and clavicles, bitemporal wasting) - *Routine Neck Exam Present: supple. Absent: lymphadenopathy - *Routine Respiratory Exam Present: Fair air movement bilaterally, still having accessory muscle use, crackles persistent right posterior lung field. Diminished in bases. - *Routine Cardiovascular Exam Present: Regular rate, regular rhythm. Absent: murmur - *Routine Abdominal Exam Present: soft, normoactive bowel sounds, tenderness (diffuse nonfocal) - *Routine Extremities Exam Present: edema Comments: Pale, prominent Zxskxnp-Oxiyx-Sfvkl deformity of feet bilaterally, loss of muscle mass, feet cool bilaterally, pulses weak in distal legs, stable trace edema to knees - *Routine Skin Exam Present: warm (On upper extremities and torso). Absent: rash - *Routine Neurological Exam Present: alert, oriented X3. Absent: altered mental status Assessment and Plan (1) Healthcare-associated pneumonia Current visit: Yes Status: Acute Category: Medical Code(s): J18.9 - Pneumonia, unspecified organism (2) Respiratory failure with hypoxia Current visit: Yes Status: Acute Qualifiers: Chronicity: acute Qualified Code(s): J96.01 - Acute respiratory failure with hypoxia Category: Medical Code(s): J96.91 - Respiratory failure, unspecified with hypoxia (3) Sepsis Current visit: Yes Status: Acute Qualifiers: Sepsis type: sepsis due to unspecified organism Sepsis acute organ dysfunction status: without acute organ dysfunction Qualified Code(s): A41.9 - Sepsis, unspecified organism Category: Medical Code(s): A41.9 - Sepsis, unspecified organism (4) Urinary tract infection Current visit: Yes Status: Acute Qualifiers: Urinary tract infection type: site unspecified Hematuria presence: without hematuria Qualified Code(s): N39.0 - Urinary tract infection, site not specified Category: Medical Code(s): N39.0 - Urinary tract infection, site not specified (5) Thrombocytosis Current visit: Yes Status: Acute Category: Medical Code(s): D47.3 - Essential (hemorrhagic) thrombocythemia (6) Hypoalbuminemia Current visit: Yes Status: Acute Category: Medical Code(s): E88.09 - Other disorders of plasma-protein metabolism, not elsewhere classified (7) Acute and chronic respiratory failure Current visit: Yes Status: Acute Category: Medical Code(s): J96.20 - Acute and chronic respiratory failure, unspecified whether with hypoxia or hypercapnia (8) Advanced care planning/counseling discussion Current visit: Yes Status: Acute Category: Medical Code(s): Z71.89 - Other specified counseling (9) Bacteremia due to Streptococcus pneumoniae Current visit: Yes Status: Acute Category: Medical Code(s): R78.81 - Bacteremia; B95.3 - Streptococcus pneumoniae as the cause of diseases classified elsewhere - Assessment and plan all Dx Assessment and Plan for all problems:: 64-year-old female who presented with sepsis due to pneumonia. Found to be bacteremic with blood cultures resulting back later yesterday afternoon. Sensitive to current antibiotics. Repeat blood cultures obtained today, would like to see those negative at 24 hours minimum before discharging home. Plan to de-escalate to levofloxacin oral, renally dosed, for duration of 14 days of treatment for both pneumonia and bacteremia. Overall patient is showing clinical improvement. Plan to discharge home with hospice tomorrow. Tolerating thickened liquids. Remains full code. Had extensive discussion today about CODE STATUS and severity of her illness. Recommend continuing this discussion in the outpatient setting with hospice. Condition guarded, prognosis grave.
--- NOTE | 2019-10-05 | Discharge Summary ---
General - General Admission date:: 10/01/19 Discharge date: 10/05/19 HPI HPI: Ms. De Leon is A chronically ill 64-year-old female well-known to our office who has chronic comorbidities consisting of Charcot deformity of her feet, end-stage gold 4D COPD, on chronic oxygen 2 to 3 L, and wheelchair-bound who presented to the ER due to weakness, fatigue, falls at home. Presentation is similar to her presentation last month however more severe due to her more profound weakness and more elevated leukocytosis and thrombocytosis. She denies any nausea or vomiting but complains of diarrhea. Of note was seen in our office earlier this week with some weakness and diarrhea but symptoms not as severe as on presentation today. Initial work-up in the ER concerning for sepsis with leukocytosis, tachycardia, tachypnea, findings of persistent pneumonia on chest imaging. Additionally she was found to have urine concerning for UTI. Family's concern prompting their call to EMS was stroke due to her weakness and hoarse voice however she had no focal findings/deficits. Initial imaging work- up in the ER showed low concern for stroke symptoms. She was admitted to medicine for further management of her respiratory failure and sepsis. Initiated on broad-spectrum antibiotics, IV fluids, breathing treatments. My assessment this afternoon after admission, she was noted to have a Sparks placed with very dark cola colored urine. Complaining of some mild aches in her arms and legs. Daughter and son-in-law at bedside. We had a brief discussion about severity of her condition, worsening progression of disease with age admission, and CODE STATUS. Patient desires to continue to be full code. Expressed my concern at this time for her continued worsening debility and decline. Hospital Course Hospital Course: Admitted in acute respiratory failure due to healthcare acquired pneumonia and septic. Initiated on broad-spectrum antibiotics goal-directed therapy per protocol. Patient had gradual improvement however continued to be weak during hospitalization. Given progressive Gold stage IVd COPD, increasing frequency of respiratory infections, and end-stage respiratory disease, discussions were had during admission about goals of care at time of discharge. Decision was made with patient and family to continue treatment for her acute illness with consultation to hospice to discuss care options at time of discharge. Patient was accepted by hospice to continue care at home. Patient and family decided to pursue hospice care with completion of treatment for acute illness on an empiric course of antibiotics. Gradually improved but still remained weak. Denies nausea, vomiting, chest pain, confusion. Stable for discharge home to complete antibiotic course and steroids. Hospice to take over care once patient home and continue to manage in the outpatient setting. Discussed CODE STATUS multiple times during admission. Patient still contemplative at this time and not ready to make a decision of changing to DNR as of yet. Throughout discussions it became more apparent of the patient's understanding of the gravity and terminal nature of her underlying lung disease. Recommend continued discussions in the outpatient setting is focusing on comfort and quality seemed important to her during our discussions.. Objective Vital signs: Temp Pulse Resp BP Pulse Ox 97.9 F 83 18 165/110 H 93 L 10/04/19 20:00 10/04/19 23:42 10/04/19 20:00 10/04/19 20:00 10/04/19 20:00 Narrative: - Constitutional Baseline respiratory distress. In bed on exam. Pleasant today. Chronically ill-appearing, cachectic (Prominent ribs and clavicles, bitemporal wasting) - *Routine Neck Exam Present: supple. Absent: lymphadenopathy - *Routine Respiratory Exam Present: Fair air movement bilaterally, still having accessory muscle use, cr ackles persistent right posterior lung field. Diminished in bases. - *Routine Cardiovascular Exam Present: Regular rate, regular rhythm. Absent: murmur - *Routine Abdominal Exam Present: soft, normoactive bowel sounds, tenderness (diffuse nonfocal) - *Routine Extremities Exam Present: edema Comments: Pale, prominent [id number] deformity of feet bilaterally, loss of muscle mass, feet cool bilaterally, pulses weak in distal legs, stable trace edema to knees - *Routine Skin Exam Present: warm (On upper extremities and torso). Absent: rash - *Routine Neurological Exam Present: alert, oriented X3. Absent: altered mental status Results Labs on day of discharge: Labs from last 24 hours 10/04/19 10/04/19 10/04/19 20:28 07:39 07:39 WBC 16.1 H D RBC 4.33 Hgb 12.0 L Hct 41.3 MCV 95.4 MCH 27.8 MCHC 29.1 L RDW 15.2 Plt Count 757 H MPV 7.8 Neut % (Auto) 88.5 H Lymph % (Auto) 6.1 L [place] % (Auto) 4.7 Eos % (Auto) 0.0 L Baso % (Auto) 0.7 Neut # (Auto) 14.3 H Lymph # (Auto) 1.0 [place] # (Auto) 0.8 Eos # (Auto) 0.0 Baso # (Auto) 0.1 Total Counted 100 Neutrophils % (Manual) 77 H Band Neutrophils % 5.0 Lymphocytes % (Manual) 10 Monocytes % (Manual) 4 Metamyelocytes % 2.0 H Myelocytes % 2 H Platelet Estimate Marked increase Hypochromasia 1+ Anisocytosis 1+ Stomatocytes 1+ Sodium 145 Potassium 3.6 Chloride 109 H Carbon Dioxide 27 Anion Gap 12.6 BUN 18 Creatinine 0.69 Estimated Creat Clear 44 Estimated GFR 86 Est GFR ( Amer) 104 Glucose 137 H Calcium 9.0 Vancomycin Trough 15.3 Preliminary micro results at discharge 10/01/19 13:35 Blood Culture - Preliminary Blood Streptococcus pneumoniae DS: Diagnosis - Discharge Diagnosis (1) Healthcare-associated pneumonia Status: Acute Problem details: Patient had acute on chronic hypoxemic and hypercarbic respiratory failure secondary to strep pneumoniae pneumonia compounding underlying end-stage COPD. Additionally on presentation her vitals and labs were significant for sepsis with organ dysfunction of respiratory failure. Decision made during admission to proceed with treatment of acute infections and transition care to hospice as an outpatient at home given the life limiting nature of her end-stage terminal lung disease. (2) Respiratory failure with hypoxia Status: Acute (3) Sepsis Status: Acute (4) Urinary tract infection Status: Acute Problem details: Staph epidermidis UTI. (5) Thrombocytosis Status: Acute (6) Hypoalbuminemia Status: Acute (7) Acute and chronic respiratory failure Status: Acute (8) Advanced care planning/counseling discussion Status: Acute (9) Bacteremia due to Streptococcus pneumoniae Status: Acute Discharge Plan - Patient Discharge Instructions ACTIVITY: Up with assistance DIET: continue same diet Patient Instructions: DI for Pneumonia -- Adult, DI for Urinary Tract Infection (UTI), DI for Sepsis -- Adult - Follow up Plan Follow up with: Neil Tony MD [Staff Physician] - Disposition: Hospice - Home Home Medications: Home Medications Medication Instructions Recorded Confirmed Type Fluticasone Furoate [Flonase 2 spray NS DAILY 09/04/18 10/02/19 History Sensimist] Fluticasone/Salmeterol [Advair 1 puffs IH BID 09/04/18 10/02/19 History 100/50mcg diskus] Gabapentin [Neurontin 300mg 300 mg PO 5XDAY 09/04/18 10/02/19 History capsule] Glycopyrrolate/Formoterol Fum 2 puffs IH BID 09/04/18 10/02/19 History [Bevespi Aerosphere Inhaler] Linaclotide [Linzess] 145 mcg PO DAILY 09/04/18 10/02/19 History SUMAtriptan succinate [Sumatriptan 100 mg PO NEEDED PRN 09/04/18 10/02/19 History Succinate] Sertraline HCl [Zoloft 100mg 200 mg PO DAILY 09/04/18 10/02/19 History tablet] Tramadol HCl [Ultram 50mg 50 mg PO QIDP PRN tablet 09/04/18 10/02/19 Rx tablet] Trazodone HCl [Desyrel 50mg tablet] 50 mg PO HSP PRN tablet 09/04/18 10/02/19 Rx raNITIdine HCL [Ranitidine HCl] 150 mg PO BID 09/04/18 10/02/19 History Acetaminophen [Tylenol 500mg 500 mg PO NEEDED PRN 10/02/19 10/02/19 History tablet] Aspirin [Aspirin 81mg EC Tab] 81 mg PO DAILY 10/02/19 10/02/19 History Calcium Carbonate/Vitamin D3 1 tab PO DAILY 10/02/19 10/02/19 History [Calcium 600-Vit D3 200 Tablet] Glycopyrrolate/Formoterol Fum 10.7 gm IH DAILY 10/02/19 10/02/19 History [Bevespi Aerosphere Inhaler] Pantoprazole Sodium [Protonix 40mg 40 mg PO DAILY 10/02/19 10/02/19 History tablet] Albuterol Sulfate [Albuterol HFA 2 puffs IH Q6HP PRN 10/03/19 10/03/19 History Inhaler] Sennosides/Docusate Sodium 1 tab PO BIDP PRN 30 Days #60 tab 10/03/19 Rx [Senokot-S Tablet] carvediloL [Coreg 6.25mg 6.25 mg PO BID 10 Days #20 tab 10/03/19 Rx Tablet] levoFLOXacin [Levaquin 500mg 500 mg PO DAILY 10 Days #10 tab 10/04/19 Rx tab] predniSONE [Deltasone 10mg tablet] 40 mg PO DAILY 2 Days #8 tab 10/04/19 Rx Prescriptions/Medication Reconciliation: New Sennosides/Docusate Sodium [Senokot-S Tablet] 1 tab PO BIDP PRN 30 Days #60 tab PRN Reason: Constipation levoFLOXacin [Levaquin 500mg tab] 500 mg PO DAILY 10 Days #10 tab carvediloL [Coreg 6.25mg Tablet] 6.25 mg PO BID 10 Days #20 tab predniSONE [Deltasone 10mg tablet] 40 mg PO DAILY 2 Days #8 tab Continued Tramadol HCl [Ultram 50mg tablet] 50 mg PO QIDP PRN tablet PRN Reason: Moderate Pain Trazodone HCl [Desyrel 50mg tablet] 50 mg PO HSP PRN tablet PRN Reason: Sleep Sertraline HCl [Zoloft 100mg tablet] 200 mg PO DAILY Fluticasone/Salmeterol [Advair 100/50mcg diskus] 1 puffs IH BID Fluticasone Furoate [Flonase Sensimist] 2 spray NS DAILY Glycopyrrolate/Formoterol Fum [Bevespi Aerosphere Inhaler] 2 puffs IH BID Linaclotide [Linzess] 145 mcg PO DAILY SUMAtriptan succinate [Sumatriptan Succinate] 100 mg PO NEEDED PRN PRN Reason: Migraine Headache raNITIdine HCL [Ranitidine HCl] 150 mg PO BID Calcium Carbonate/Vitamin D3 [Calcium 600-Vit D3 200 Tablet] 1 tab PO DAILY Pantoprazole Sodium [Protonix 40mg tablet] 40 mg PO DAILY Gabapentin [Neurontin 300mg capsule] 300 mg PO 5XDAY Aspirin [Aspirin 81mg EC Tab] 81 mg PO DAILY Acetaminophen [Tylenol 500mg tablet] 500 mg PO NEEDED PRN PRN Reason: Headache Glycopyrrolate/Formoterol Fum [Bevespi Aerosphere Inhaler] 10.7 gm IH DAILY Albuterol Sulfate [Albuterol HFA Inhaler] 2 puffs IH Q6HP PRN PRN Reason: Shortness Of Breath Or Wheezing - Problem Reconciliation Problems Reviewed?: Yes
--- NOTE | 2019-10-05 08:27 | Pharmacy Consult Notes ---
- Pharmacy Consult Date: 10/05/19 Time: 08:26 Referring provider: DR. FERRO Reason for Consult:: VANCOMYCIN TROUGH LEVEL Allergies and ADEs:: Allergies Allergy/AdvReac Type Severity Reaction Status Date / Time iodine Allergy Unknown I-HIVES Verified 09/15/19 13:32 Penicillins Allergy Unknown I-HIVES Verified 09/15/19 13:32 Home Medications:: Home Medications Medication Instructions Recorded Confirmed Type Fluticasone Furoate [Flonase 2 spray NS DAILY 09/04/18 10/02/19 History Sensimist] Fluticasone/Salmeterol [Advair 1 puffs IH BID 09/04/18 10/02/19 History 100/50mcg diskus] Gabapentin [Neurontin 300mg 300 mg PO 5XDAY 09/04/18 10/02/19 History capsule] Glycopyrrolate/Formoterol Fum 2 puffs IH BID 09/04/18 10/02/19 History [Bevespi Aerosphere Inhaler] Linaclotide [Linzess] 145 mcg PO DAILY 09/04/18 10/02/19 History SUMAtriptan succinate [Sumatriptan 100 mg PO NEEDED PRN 09/04/18 10/02/19 History Succinate] Sertraline HCl [Zoloft 100mg 200 mg PO DAILY 09/04/18 10/02/19 History tablet] Tramadol HCl [Ultram 50mg 50 mg PO QIDP PRN tablet 09/04/18 10/02/19 Rx tablet] Trazodone HCl [Desyrel 50mg tablet] 50 mg PO HSP PRN tablet 09/04/18 10/02/19 Rx raNITIdine HCL [Ranitidine HCl] 150 mg PO BID 09/04/18 10/02/19 History Acetaminophen [Tylenol 500mg 500 mg PO NEEDED PRN 10/02/19 10/02/19 History tablet] Aspirin [Aspirin 81mg EC Tab] 81 mg PO DAILY 10/02/19 10/02/19 History Calcium Carbonate/Vitamin D3 1 tab PO DAILY 10/02/19 10/02/19 History [Calcium 600-Vit D3 200 Tablet] Glycopyrrolate/Formoterol Fum 10.7 gm IH DAILY 10/02/19 10/02/19 History [Bevespi Aerosphere Inhaler] Pantoprazole Sodium [Protonix 40mg 40 mg PO DAILY 10/02/19 10/02/19 History tablet] Albuterol Sulfate [Albuterol HFA 2 puffs IH Q6HP PRN 10/03/19 10/03/19 History Inhaler] Sennosides/Docusate Sodium 1 tab PO BIDP PRN 30 Days #60 tab 10/03/19 Rx [Senokot-S Tablet] carvediloL [Coreg 6.25mg 6.25 mg PO BID 10 Days #20 tab 10/03/19 Rx Tablet] levoFLOXacin [Levaquin 500mg 500 mg PO DAILY 10 Days #10 tab 10/04/19 Rx tab] predniSONE [Deltasone 10mg tablet] 40 mg PO DAILY 2 Days #8 tab 10/04/19 Rx Height: 1.65 m Weight: 47.287 kg Laboratory Results:: Laboratory Results - last 24 hr 10/04/19 07:39: Total Counted 100, Neutrophils % (Manual) 77 H, Band Neutrophils % 5.0, Lymphocytes % (Manual) 10, Monocytes % (Manual) 4, Metamyelocytes % 2.0 H , Myelocytes % 2 H, Platelet Estimate Marked increase, Hypochromasia 1+, Anisocytosis 1+, Stomatocytes 1+ 10/04/19 20:28: Vancomycin Trough 15.3 Medical History: Reports:: Chronic Obstructive Pulmonary Disease (COPD), Depression, Gastroesophageal Reflux Disease(GERD), Hyperlipidemia, Hypertension Denies:: Cancer, Diabetes Mellitus Type 1, Diabetes Mellitus Type 2, Internal Pacemaker, MRSA, Seizures Assessment and Plan (1) Healthcare-associated pneumonia Current visit: Yes Status: Acute Category: Medical Code(s): J18.9 - Pneumonia, unspecified organism (2) Respiratory failure with hypoxia Current visit: Yes Status: Acute Qualifiers: Chronicity: acute Qualified Code(s): J96.01 - Acute respiratory failure with hypoxia Category: Medical Code(s): J96.91 - Respiratory failure, unspecified with hypoxia (3) Sepsis Current visit: Yes Status: Acute Qualifiers: Sepsis type: sepsis due to unspecified organism Sepsis acute organ dysfunction status: without acute organ dysfunction Qualified Code(s): A41.9 - Sepsis, unspecified organism Category: Medical Code(s): A41.9 - Sepsis, unspecified organism (4) Urinary tract infection Current visit: Yes Status: Acute Qualifiers: Urinary tract infection type: site unspecified Hematuria presence: without hematuria Qualified Code(s): N39.0 - Urinary tract infection, site not specified Category: Medical Code(s): N39.0 - Urinary tract infection, site not specified (5) Thrombocytosis Current visit: Yes Status: Acute Category: Medical Code(s): D47.3 - Essential (hemorrhagic) thrombocythemia (6) Hypoalbuminemia Current visit: Yes Status: Acute Category: Medical Code(s): E88.09 - Other disorders of plasma-protein metabolism, not elsewhere classified (7) Acute and chronic respiratory failure Current visit: Yes Status: Acute Category: Medical Code(s): J96.20 - Acute and chronic respiratory failure, unspecified whether with hypoxia or hypercapnia (8) Advanced care planning/counseling discussion Current visit: Yes Status: Acute Category: Medical Code(s): Z71.89 - Other specified counseling (9) Bacteremia due to Streptococcus pneumoniae Current visit: Yes Status: Acute Category: Medical Code(s): R78.81 - Bacteremia; B95.3 - Streptococcus pneumoniae as the cause of diseases classified elsewhere - Assessment and plan all Dx Assessment and Plan for all problems:: BASED ON PATIENT FACTORS AND VANCOMYCIN TROUGH LEVEL, RECOMMEND CONTINUING VANCOMYCIN 1250 MG IV Q18H. PATIENT IS BEING DISCHARGED THIS MORNING ON [facility].
== END 2019-10-05 13:20 | disposition hospice, home (50) | DRG 193 ==
LOC: 2ND 12:52 → ER 12:52 → OBSVTOIN 17:08 → 2ND 17:08
PROVIDERS: ADMIT Internal Medicine Adolescent Medicine; ATTEND Internal Medicine Adolescent Medicine
CPT/HCPCS: 36415; 70450; 71010; 71045; 71250; 74176; 80048; 80053; 80202; 81001; 82550; 82803; 83605; 84484; 85007; 85025; 87040; 87070; 87077; 87086; 87088; 87186; 87205; 92610; 93005; 94640; 94761; 96365; 96367; 96375; 97110; 97163; 97166; 97530; 99285; J1956; J3370